=== PATIENT | female | born 1985 | race Caucasian/White ===

== ENCOUNTER 2020-05-05 18:45 | Emergency (ER) | payer MEDICAID, SELFPAY ==
[2019-08-20 17:33] VITALS: BMI 24.3
[2020-05-05 18:46] VITALS: BP 161/98; PULSE 95; RESP 16; TEMP 37.1; O2SAT 100; BMI 23.6
--- NOTE | 2020-05-05 19:42 | EKG12_ITS ---
Test Reason : REPEAT Blood Pressure : / mmHG Vent. Rate : 060 BPM Atrial Rate : 060 BPM P-R Int : 152 ms QRS Dur : 080 ms QT Int : 434 ms P-R-T Axes : 021 064 027 degrees QTc Int : 434 ms Sinus rhythm with marked sinus arrhythmia Otherwise normal ECG Confirmed by LIDA WORRELL, ARMIN ([id number]), editor managing director SELMA KAUR ([id number]) on 05/07/2020 10:51:04 AM Referred By: ALEXANDRA Confirmed By:ARMIN HILTON MD
--- NOTE | 2020-05-05 19:56 | RAD_ITS ---
STUDY: X-RAY CHEST REASON FOR EXAM: Female, 34 years old. FEVER,SINUSITIS, BRONCHITIS AND IRREGULAR HEART RATE TECHNIQUE: AP portable COMPARISON: 09/12/2011 FINDINGS: The lungs are clear and expanded. There is no demonstrated pleural abnormality. Normal size heart. Normal mediastinum and nasim. Normal visualized pulmonary arteries. Normal visualized aortic arch and descending thoracic aorta. Normal visualized thoracic spine. Normal visualized ribs, clavicles, and shoulders. There is no demonstrated abnormality of the visualized soft tissue structures of the upper abdomen. No significant change since prior exam RAD/Chest 1 View (Portable) IMPRESSION: Normal x-ray examination of the chest. Electronically Signed: Barrington Hernandez MD at 20:38 EST , Service support ,
--- NOTE | 2020-05-05 19:57 | ED.VIS.GEN ---
History of Present Illness Chief Complaint: Chest Pain Narrative: This patient is a 34-year-old female who presents with 4 days of palpitations. She has a history of a cardiomyopathy when she was 21 years old and was hospitalized at that time. She was on medication for couple of years but is no longer treated for congestive heart failure. She complains of 4 days of intermittent palpitations and a mild chest pressure as well as mild shortness of breath. She initially went to an urgent care and was advised to be evaluated here in the emergency department. No fever cough congestion rhinorrhea sore throat vomiting or diarrhea. Past Medical History - Allergies and Home Meds Allergies/Adverse Reactions: Allergies meperidine [From Demerol] Allergy (Mild, Verified 05/05/20 18:49) Fever and skin rash morphine Allergy (Mild, Verified 05/05/20 18:49) Fever and skin rash Primary Care Physician: Care Physician,No Primary [Primary Care Provider] - Past Medical History: - - Migraines, history of cardiomyopathy Smoking Status: Current every day smoker Review of Systems All systems negative except as indicated General: Denies: Fever Eyes: Denies: Visual changes - bilaterally ENT: Denies: Bilateral ear pain Cardiovascular: Reports: Chest pain, Palpitations Respiratory: Reports: Dyspnea. Denies: Cough Gastrointestinal: Denies: Abdominal pain, Nausea, Vomiting, Diarrhea Musculoskeletal: Denies: Myalgias, Arthralgias Skin: Denies: Rash Neurological: Denies: Headache Allergy: Denies: Uticaria Physical Exam Vital Signs/Narrative: Vital Signs Temp Pulse Resp BP Pulse Ox 05/05/20 18:46 98.8 F 95 16 161/98 H 100 General: Well nourished, Well developed Head: Normocephalic, Atraumatic Eyes: EOMI ENT: Moist mucous membranes Neck: Supple Cardiovascular: Regular rate, Regular rhythm Respiratory: No distress, CTA bilaterally Abdomen: Soft, Nontender Skin: Normal color Neurological: Alert Psychological: Normal affect Diagnostic/Tx/Re-eval Impressions Chest X-Ray 05/05/20 19:56 IMPRESSION: Normal x-ray examination of the chest. Electronically Signed: Barrington Hernandez MD at 20:38 EST , Service support , 05/05/20 19:56 Chest 1 View (Portable) [RAD] Stat Laboratory Results 05/05/20 05/05/20 05/05/20 19:47 19:47 19:47 WBC 9.5 RBC 4.94 Hgb 14.5 Hct 46.1 MCV 93.3 MCH 29.4 MCHC 31.5 L RDW Std Deviation 43.1 RDW Coeff of Brigid 12.5 Plt Count 299 MPV 10.5 Immature Gran % (Auto) 0.300 Neut % (Auto) 57.0 Lymph % (Auto) 35.0 [place] % (Auto) 4.9 Eos % (Auto) 1.9 Baso % (Auto) 0.9 Absolute Neuts (auto) 5.4 Absolute Lymphs (auto) 3.33 Nucleated RBC % 0 Sodium 140 Potassium 4.2 Chloride 109 H Carbon Dioxide 28.0 Anion Gap 3 L BUN 8 Creatinine 0.94 Estim Creat Clear Calc 85.87 Est GFR (MDRD) Af Amer 87 Est GFR (MDRD) Non-Af 72 BUN/Creatinine Ratio 8.5 L Glucose 91 Calcium 9.1 Magnesium 2.1 Troponin I < 0.015 - Medical Decision Making Initial EKG shows sinus rhythm at a rate of 71 with ventricular trigeminy. Repeat EKG shows sinus arrhythmia at a rate of 60 no acute ischemic changes. Labs are unremarkable. Normal electrolytes. 1 view chest x-ray obtained. On my interpretation the shows no acute process. X-ray read by radiology who agrees. His diagnostic evaluation is unremarkable at this time. I do believe she can safely follow-up as an outpatient. She was referred to cardiology. She understands return for new or worsening symptoms and was advised on signs and symptoms that should prompt immediate return here to the emergency department for reevaluation. ED Disposition - Plan for ED Patient: Disposition: Home or Assisted Living Diagnosis: Palpitations Instructions: ED Palpitations Referrals: Care Physician,No Primary [Primary Care Provider] -
[2020-05-05 19:59] LABS: Absolute Lymphocyte Count 3.33 X10^3/uL (0.83-4.51); Absolute Neutrophil Count 5.4 X10^3/uL (2.0-7.7); Basophil# 0.09 X10^3/uL; Basophil% 0.9 % (0-1); Eosinophil# 0.18 X10^3/uL; Eosinophils% 1.9 % (0-5); Hematocrit 46.1 % (37-47); Hemoglobin 14.5 g/dL (12.0-15.0); Lymphocyte # 3.33 X10^3/ul (4.0); Mean Corp Hgb Conc 31.5 g/dL (32-36); Mean Corpuscular Hgb 29.4 pg (27.0-32.0); Mean Corpuscular Volume 93.3 fL (81-99); Mean Platelet Vol. 10.5 fl (6.2-12.0); Monocyte# 0.47 X10^3/uL; Monocyte% 4.9 % (0-10); NRBC Flagged by Analyzer 0 % (0-5); Neutrophil # 5.42 X10^3/uL (2.7-7.7); Platelet Count 299 K/mm3 (150-450); RBC Distribution Width CV 12.5 % (11.6-14.6); RBC Distribution Width SD 43.1 fl (35.1-43.9); Red Blood Count 4.94 M/mm3 (4.2-5.4); White Blood Count 9.5 K/mm3 (4.4-11.0)
[2020-05-05 20:24] LABS: Anion Gap 3 (5-15); BUN 8 mg/dL (7-18); BUN/Creat Ratio 8.5 RATIO (10-20); Calcium,Total 9.1 mg/dL (8.5-10.1); Chloride 109 mmol/L (98-107); Creatinine, Serum 0.94 mg/dL (0.55-1.02); EST Glomerular Filtration Rate 72 mL/min (>60); Est Glom Filt Rate - Afr Amer 87 mL/min (>60); Estimated Creatinine Clearance 85.87 ml/min; Glucose 91 mg/dL (74-106); Potassium 4.2 mmol/L (3.5-5.1); Sodium Level 140 mmol/L (136-145)
[2020-05-05 21:11] VITALS: BP 98/72; PULSE 88; RESP 17; O2SAT 98
--- NOTE | 2020-05-05 21:19 | EKG12_ITS ---
Test Reason : CP Blood Pressure : / mmHG Vent. Rate : 071 BPM Atrial Rate : 187 BPM P-R Int : 000 ms QRS Dur : 078 ms QT Int : 408 ms P-R-T Axes : 000 064 055 degrees QTc Int : 443 ms Sinus rhythm with occasional premature ventricular complexes Abnormal ECG Confirmed by LIDA WORRELL, ARMIN ([id number]), rewrite editor SELMA KAUR ([id number]) on 05/07/2020 10:51:57 AM Referred By: ALEXANDRA Confirmed By:ARMIN HILTON MD
[2020-05-05 21:55] LABS: Magnesium 2.1 mg/dL (1.6-2.6)
--- NOTE | 2020-05-05 21:58 | ED.DEP ---
ED Disposition - Plan for ED Patient: Disposition: Home or Assisted Living Diagnosis: Palpitations Instructions: ED Palpitations Referrals: Care Physician,No Primary [Primary Care Provider] - Ralph Lal MD [STAFF PHYSICIAN] -
== END 2020-05-05 22:09 | disposition home or self-care (01) ==
PROVIDERS: Emergency Provider Emergency Medicine
DX: R00.2 Palpitations (principal); R00.8 Other abnormalities of heart beat; R06.02 Shortness of breath; F17.200 Nicotine dependence, unspecified, uncomplicated; Z79.899 Other long term (current) drug therapy
CPT/HCPCS: 71045; 80048; 83735; 84484; 85025; 93005; 99284; A4216

== ENCOUNTER 2023-09-27 15:18 | Emergency (ER) | payer MEDICAID, SELFPAY ==
[2023-09-27 15:19] VITALS: BP 113/76; PULSE 102; RESP 20; TEMP 36.1; O2SAT 100; BMI 24.8
[2023-09-27 16:24] LABS: Mucous, Urine 0 SEEN /hpf (<or=2+); Red Blood Cells-Urine 0 SEEN /hpf (0-5)
[2023-09-27 16:29] LABS: Color, Urine Amber (Yellow); Glucose, Dipstick Normal (Normal); Ketone-Dipstick 15 mg/dl (Negative); Leukocyte Esterase-Dipstick Negative /ul (Negative); Nitrite-Dipstick Positive (Negative); Occult Blood-Urine 25 /ul (Negative); Protein-Dipstick 100 mg/dl (Negative); Urine Clarity Sl. Cloudy (Clear); Urine Urobilinogen 8 mg/dl (Normal)
--- NOTE | 2023-09-27 16:30 | CT_ITS ---
STUDY: CT ABDOMEN AND PELVIS WITHOUT CONTRAST REASON FOR EXAM: Female, 37 years old. Pain RADIATION DOSAGE (If Supplied By Facility): CTDIvol = ( 6.54 ) mGy, DLP = ( 318.41 ) mGycm TECHNIQUE: Transaxial images were obtained from the dome of the diaphragm to the symphysis pubis without oral contrast, and without intravenous contrast. Sagittal and coronal images were reconstructed. Individualized dose optimization techniques were used for this CT. COMPARISON: None. FINDINGS: The visualized lung bases are unremarkable. The visualized portions of the heart are within normal limits. Normal liver. Normal gallbladder and extrahepatic biliary system. Normal spleen. Normal pancreas. Normal bilateral adrenal glands. There is a 0.3 cm stone at the lower pole of the right kidney. There is a 0.2 cm at the lower pole of the left kidney. Normal visualized stomach. Normal small intestine. Normal colon. The appendix is visualized and appears normal. Normal abdominal aorta. Normal inferior vena cava. Normal retroperitoneum. There is 0.4 cm stone in the urinary bladder. There is IUD in the uterus. There is no free fluid in the abdomen or pelvis. Normal abdominal wall. Normal osseous structures. CT/Abdomen/Pelvis without Cont IMPRESSION: Bilateral renal stones. Stone in the urinary bladder. No hydronephrosis. Electronically Signed: Bryce Sauceda MD at 18:12 EDT ,
--- NOTE | 2023-09-27 16:31 | EDS_ITS ---
HPI HPI - GI History of Present Illness Chief Complaint: Abd Pain Detail of Chief Complaint: Abdominal pain and vomiting Informant: patient Narrative Narrative: Patient presents with abdominal pain and vomiting that started about 1:30 PM. 7 days ago she went to urgent care with UTI-like symptoms and had blood in her urine. They did not see signs of infection but I believe they treated her with Flagyl. Patient continues to experience symptoms. She started Macrobid today. Also on Pyridium. About 1:30 PM she started retching and vomiting and is vomited multiple times. After arrival in the emergency department per protocol she received some Zofran and then started having diarrhea. Patient denies sick contacts. No prior abdominal surgeries. Last menstrual period was 3 weeks ago. [facility] Medical History (Updated 09/27/23 @ 18:[address] Mary Bautista DO) Depression Feeling angry ADHD (attention deficit hyperactivity disorder) KIDNEY STONE 20 STONES TOTAL RECEIVED STONES DURING PREGNANC PERCARDIUM CARDIOMYOPATHY Home Medications ?Medication ?Instructions ?Recorded ?Last Taken ?Type amoxicillin 875 mg-potassium 1 tab PO Q12H #20 tabs 08/20/19 Unknown Rx clavulanate 125 mg tablet benzonatate 200 mg capsule 200 mg PO TID PRN cough #60 caps 08/20/19 Unknown Rx fluconazole 150 mg tablet 150 mg PO Q3D 2 doses #2 tabs 08/20/19 Unknown Rx ondansetron 4 mg disintegrating 4 mg PO Q8H PRN PRN Nausea #10 tabs 09/27/23 Unknown Rx tablet Allergy/AdvReac Type Severity Reaction Status Date / Time meperidine (From Demerol) Allergy Mild Fever and Verified 09/27/23 15:21 skin rash morphine Allergy Mild Fever and Verified 09/27/23 15:21 skin rash Family History (Updated 10/25/18 @ 14:28 by Katrina De La Rosa) Other CVA (cerebral vascular accident) High cholesterol Hypertension IBS (irritable bowel syndrome) Surgical History (Updated 05/05/20 @ 19:[address] Andrés Andino MD) H/O lithotripsy Social History (Updated 08/20/19 @ 17:48 by Clarisa Cespedes NP, [employer]-C) Smoking Status: Current every day smoker tobacco type: cigarettes second hand exposure: Yes ROS ROS ED Review of Systems ROS Unobtainable: other Constitutional Constitutional ED: Reports lethargy; Denies chills, fever(s), sweats or weight loss Eyes Eyes: Denies blurry vision, change in vision or diplopia ENT ENT ED: Denies rhinorrhea or sore throat Cardiovascular Cardiovascular: Denies chest pain, orthopnea or racing heartbeat Respiratory/Chest Respiratory/Chest: Denies cough, dyspnea, dyspnea on exertion, orthopnea or sputum Gastrointestinal Gastrointestinal: Reports abdominal pain, diarrhea, nausea and vomiting Genitourinary Genitourinary ED: Denies dysuria, hematuria or urinary frequency Musculoskeletal Musculoskeletal: Denies arthralgias, back pain, myalgias or neck pain Integumentary Denies abscess, Abrasions or rash Neurologic Neurologic: Denies headache(s) or weakness Psychiatric Psychiatric: Denies anxiety, depression or suicidal thoughts Endocrine Endocrinology: Denies polydipsia, polyphagia or polyuria Hematologic/Lymphatic Hematologic/Lymphatic: Denies easy bleeding, easy bruising or lymphadenopathy Allergic/Immunologic Allergic/Immunologic ED: Denies mouth swelling, tongue swelling or urticaria EXAM Physical Exam Const Vital Signs: 09/27/23 15:19 09/27/23 17:19 Temperature 97 F L Temperature Source Temporal Pulse Rate 102 H 92 Respiratory Rate 20 H Blood Pressure 113/76 122/81 H Blood Pressure Mean 88 94 Pulse Ox 100 Oxygen Delivery Method Room Air Positive well nourished and well developed General Appearance ED: well developed and NAD HEENT Reports TM's clear and moist mucous membranes normocephalic and atraumatic; Negative for trauma or tenderness Tympanic Membrane ED: Yes TM's clear Eyes PERRL and EOMs intact bilaterally General Eye ED: Negative for pale conjunctiva or scleral icterus Neck no lymphadenopathy, supple and no JVD General: Negative for tenderness Chest Wall inspection of chest normal and palpation of chest normal Chest: Negative for tenderness Resp normal respiratory effort and clear to auscultation bilaterally Effort and Inspection: Negative for respiratory distress or pain with movement Auscultation: Negative for rhonchi, wheezes or diminished lung sounds Cardio regular rate, regular rhythm, S1 normal heart sound, S2 normal heart sound and no murmurs Peripheral Pulses: pulses 2+ throughout GI normal to inspection, nondistended, normoactive bowel sounds, soft to palpation, non-distended and no masses GI Narrative: Mild tenderness over the suprapubic region with some guarding. There is no rebound, rigidity, or pineal signs. No mass palpated. Back/Spine no CVA tenderness and no thoracic nor lumbar tenderness Extremity normal to inspection General Extremety ED: Negative for edema General Extremity: Negative for edema Neuro oriented x3, CN's II-XII intact bilaterally, no sensory deficits noted and gait normal Sensorium / Orientation: awake, alert, oriented to person, oriented to place and oriented to time Motor Exam: strength 5/5 throughout and strength abnormal Psych mental status grossly normal Skin no rashes or lesions noted and no wounds MDM MDM MDM Narrative Medical decision making narrative: Patient presents with urinary symptoms thought she may have a UTI and has history of kidney stones. Patient today also started vomiting and having diarrhea as well. IV line established on arrival. CBC with differential obtained showed a white count of 13.1 with hemoglobin 14.2 and platelet count of 260. Chemistries unremarkable. LFTs were normal. hCG was negative. Urinalysis positive for nitrites but negative for leukocyte esterase and only 0- 5 WBCs and +1 bacteria. Urine culture was sent. CT flank obtained showed a small 4 mm stone in the bladder and 2 small stones in 1 in the right kidney and 1 in the left kidney. No other acute findings. Patient received Zofran in the department and normal saline and felt markedly improved. At this point she will be discharged to home. I did advise her to continue with her Macrobid that she is started. I suspect she may have passed a kidney stone given that there is a small stone in the bladder. She will be given a prescription for Zofran. Advised to follow-up with primary care physician within next 3 to 5 days. Patient to return if worsening pain, fever, vomiting, dehydration, or condition should worsen anyway. I suspect she may also be developing a viral gastroenteritis potentially given the sudden onset of vomiting and diarrhea. Lab Data Attestation: I reviewed the patient's lab results. Labs: Laboratory Results - last 24 hr 09/27/23 09/27/23 15:40 16:59 WBC 13.1 H RBC 4.69 Hgb 14.2 Hct 43.5 MCV 92.8 MCH 30.3 MCHC 32.6 RDW Std Deviation 43.7 RDW Coeff of Brigid 12.8 Plt Count 260 MPV 10.3 Immature Gran % (Auto) 0.500 Neut % (Auto) 92.3 H Lymph % (Auto) 3.9 L [place] % (Auto) 2.8 Eos % (Auto) 0.2 Baso % (Auto) 0.3 Absolute Neuts (auto) 12.0 H Absolute Lymphs (auto) 0.51 L Nucleated RBC % 0 Sodium 138 Potassium 4.1 Chloride 110 H Carbon Dioxide 24.0 Anion Gap 4 L BUN 13 Creatinine 0.92 Estim Creat Clear Calc 85.28 Est GFR (MDRD) Af Amer 88 Est GFR (MDRD) Non-Af 73 BUN/Creatinine Ratio 14.1 Glucose 105 Calcium 8.3 L Total Bilirubin 0.70 AST 13 L ALT 18 Alkaline Phosphatase 53 Total Protein 6.6 Albumin 3.8 Globulin 2.8 Albumin/Globulin Ratio 1.4 Serum , Qual NEGATIVE Urine Color [place] Urine Clarity Sl. Cloudy Urine pH 5.0 Ur Specific [place] 1.030 Urine Protein 100 H Urine Glucose (UA) Normal Urine Ketones 15 H Urine Occult Blood 25 H Urine Nitrite Positive H Urine Bilirubin 6 H Urine Urobilinogen 8 H Ur Leukocyte Esterase Negative Urine RBC 0 SEEN Urine WBC 0-5 SEEN Ur Squamous Epith Cells 5-10 SEEN Calcium Oxalate Crystal 2+ Urine Bacteria 1+ Urine Mucus 0 SEEN Radiography Diagnostic Testing: Clinical Impression(s) from Imaging Studies Abdomen/Pelvis CT 09/27/23 16:30 IMPRESSION: Bilateral renal stones. Stone in the urinary bladder. No hydronephrosis. Electronically Signed: Bryce Sauceda MD at 18:12 EDT , Discharge Plan Triage Chief Complaint: Abd Pain ED Provider: Mary Bautista Dx/Rx/DC Orders Clinical Impression: Urolithiasis, Viral gastroenteritis Instructions: ED Kidney Stone, Passed, ED Gastroenteritis, Viral (Adult) Prescriptions: New ondansetron 4 mg tablet,disintegrating 4 mg PO Q8H PRN PRN (Reason: Nausea) Qty: 10 0RF No Action amoxicillin-pot clavulanate 875-125 mg tablet 1 tab PO Q12H Qty: 20 0RF benzonatate 200 mg capsule 200 mg PO TID PRN (Reason: cough) Qty: 60 0RF fluconazole 150 mg tablet 150 mg PO Q3D 0 Days Qty: 2 0RF Primary Care Provider: Deena Chavez Referrals: [facility] Doctor,Out of [Non-Staff] - 3-5 Days Print Language: [place] Korean Disposition Disposition: Home, Self Care
[2023-09-27 16:35] LABS: Urine Bilirubin Dipstick 6 mg/dL (Negative)
[2023-09-27 16:36] LABS: Squamous Epithelial Cells - UA 5-10 SEEN /hpf (5-10); White Blood Cells 0-5 SEEN /hpf (0-5)
[2023-09-27 16:37] LABS: Bacteria 1+ /hpf (None Seen); Calcium Oxalate Crystals Ur 2+ /hpf (<or=2+)
[2023-09-27] MEDS: 0.9% Normal Saline (1000mL) 1,000 ML 1000 ML IV (16:39)
[2023-09-27 17:06] LABS: Absolute Lymphocyte Count 0.51 X10^3/uL (0.83-4.51); Basophil# 0.04 X10^3/uL; Basophil% 0.3 % (0-1); Eosinophil# 0.03 X10^3/uL; Eosinophils% 0.2 % (0-5); Hematocrit 43.5 % (37-47); Hemoglobin 14.2 g/dL (12.0-15.0); Lymphocyte # 0.51 X10^3/ul (0.83-4.51); Lymphocyte % 3.9 % (19-41); Mean Corp Hgb Conc 32.6 g/dL (32-36); Mean Corpuscular Hgb 30.3 pg (27.0-32.0); Mean Corpuscular Volume 92.8 fL (81-99); Mean Platelet Vol. 10.3 fl (6.2-12.0); Monocyte# 0.37 X10^3/uL; Monocyte% 2.8 % (0-10); NRBC Flagged by Analyzer 0 % (0-5); Neutrophil # 12.04 X10^3/uL (2.7-7.7); Neutrophil % 92.3 % (47-70); POSITIVE DIFFERENTIAL YES; Platelet Count 260 K/mm3 (150-450); RBC Distribution Width CV 12.8 % (11.6-14.6); RBC Distribution Width SD 43.7 fl (35.1-43.9); Red Blood Count 4.69 M/mm3 (4.2-5.4); White Blood Count 13.1 K/mm3 (4.4-11.0)
[2023-09-27 17:19] VITALS: BP 122/81; PULSE 92
[2023-09-27 17:45] LABS: ALB/GLOB Ratio 1.4 RATIO (0.9-2.4); AST(SGOT) 13 U/L (15-37); Alanine Aminotransfer ALT/SGPT 18 U/L (13-56); Albumin, Serum 3.8 g/dL (3.2-5.0); Alkaline Phosphatase 53 U/L (45-117); Anion Gap 4 (5-15); BUN 13 mg/dL (7-18); BUN/Creat Ratio 14.1 RATIO (10-20); Calcium,Total 8.3 mg/dL (8.5-10.1); Chloride 110 mmol/L (98-107); Creatinine, Serum 0.92 mg/dL (0.55-1.02); EST Glomerular Filtration Rate 73 mL/min (>60); Est Glom Filt Rate - Afr Amer 88 mL/min (>60); Estimated Creatinine Clearance 85.28 ml/min; Globulin 2.8 g/dL (2.2-4.2); Glucose 105 mg/dL (74-106); Internal QC Validated? YES +Cl - CLEAR BKGD; Potassium 4.1 mmol/L (3.5-5.1); Pregnancy, Serum, hCG Quali. NEGATIVE Negative; Protein, Total 6.6 g/dL (6.4-8.2); Sodium Level 138 mmol/L (136-145)
[2023-09-27 18:39] VITALS: BP 124/64; PULSE 64; RESP 18; TEMP 36.8; O2SAT 97
== END 2023-09-27 18:56 | disposition home or self-care (01) ==
PROVIDERS: Emergency Provider Emergency Medicine; PCP Family Medicine; Visit Provider Emergency Medicine
DX: A08.4 Viral intestinal infection, unspecified (principal); N20.0 Calculus of kidney; F17.210 Nicotine dependence, cigarettes, uncomplicated; Z87.442 Personal history of urinary calculi; N21.0 Calculus in bladder
CPT/HCPCS: 36415; 74176; 80053; 81001; 84703; 85025; 87077; 87086; 87088; 87186; 99283; J7030; A4216

== ENCOUNTER 2024-03-07 21:56 | Emergency (ER) | payer MEDICAID, SELFPAY ==
[2024-03-07 21:57] VITALS: BP 160/94; PULSE 118; RESP 16; TEMP 36; O2SAT 98
--- NOTE | 2024-03-07 22:00 | EDS_ITS ---
HPI History of Present Illness Chief Complaint: Chest Pain PFSH PFSH Medical History Depression Feeling angry ADHD (attention deficit hyperactivity disorder) KIDNEY STONE 20 STONES TOTAL RECEIVED STONES DURING PREGNANC PERCARDIUM CARDIOMYOPATHY Home Medications ?Medication ?Instructions ?Recorded ?Last Taken ?Type amoxicillin 875 mg-potassium 1 tab PO Q12H #20 tabs 08/20/19 Unknown Rx clavulanate 125 mg tablet benzonatate 200 mg capsule 200 mg PO TID PRN cough #60 caps 08/20/19 Unknown Rx fluconazole 150 mg tablet 150 mg PO Q3D 2 doses #2 tabs 08/20/19 Unknown Rx ondansetron 4 mg disintegrating 4 mg PO Q8H PRN PRN Nausea #10 tabs 09/27/23 Unknown Rx tablet Allergy/AdvReac Type Severity Reaction Status Date / Time meperidine (From Demerol) Allergy Mild Fever and Verified 03/07/24 21:57 skin rash morphine Allergy Mild Fever and Verified 03/07/24 21:57 skin rash Family History (Updated 10/25/18 @ 14:28 by Katrina De La Rosa) Other CVA (cerebral vascular accident) High cholesterol Hypertension IBS (irritable bowel syndrome) Surgical History H/O lithotripsy Social History (Updated 08/20/19 @ 17:48 by Clarisa Cespedes NP, ELECTROCARDIOGRAPH OPERATOR-C) Smoking Status: Current every day smoker tobacco type: cigarettes second hand exposure: Yes EXAM Physical Exam Const Vital Signs: 03/07/24 21:57 03/07/24 22:30 03/07/24 23:09 Temperature 96.8 F L Temperature Source Temporal Pulse Rate 118 H 57 L Respiratory Rate 16 13 Blood Pressure 160/94 H Blood Pressure Mean 116 Pulse Ox 98 97 Oxygen Delivery Method Room Air Room Air MDM MDM MDM Narrative Medical decision making narrative: HISTORY OF PRESENT ILLNESS: 38-year-old female history of cardiomyopathy presents with chest pain. Notes chest pain and pressure starting approximate 30 minutes prior to arrival. Notes pain radiates down her left arm. She feels like her heart is skipping beats. No she drink more coffee than usual today. Notes she drank a whole pot of coffee . She notes since then she has been having the symptoms. The patient denies recent surgery in the last 4 weeks or immobilization in the last 3 days, denies previous diagnosis of DVT or PE, hemoptysis, unilateral leg swelling or malignancy with treatment the last 6 months or palliative. No estrogen use noted. Patient denies sudden onset of pain, no tearing sensation, no migratory symptoms, no new numbness, weakness or loss of sensation. Patient denies family history or personal history of Connective tissue disorders (Marfan's Syndrome, Michele Danlos etc) REVIEW OF SYSTEMS: Pertinent positives: Chest pain, palpitations Pertinent negatives: Syncope PHYSICAL EXAM: Nursing triage notes reviewed, Vital signs reviewed Constitutional: please see mdm HENT: MMM Eyes: Pupils equal round and reactive to light, Extraocular muscles intact Neck: No stridor, no JVD, full neck ROM Lungs: Clear to auscultation, No wheezing or rales. No increased work of breathing, no conversational dyspnea, no accessory muscle use, no nasal flaring. No respiratory distress noted Heart: Regular rate and rhythm, No murmurs, No rubs and No gallops, 2+ distal pulses (radial, femoral, posterior tibial) in all extremities Abdomen: Soft, there is no tenderness, rigidity, rebound or guarding, no obvious peritoneal signs, no palpable pulsatile abdominal masses, no auscultated abdominal bruit : No CVAT Extremities: No edema Neuro: No focal neurological deficits, cranial nerves II through XII intact, 5/5 strength in all extremities. Intact sensation to light touch in all extremities, 2+ reflexes bilateral patella tendons. Normal gait. No ataxia. Skin: No rash or lesions noted MEDICAL DECISION MAKING: Chief Complaint: Chest pain, palpitations External records reviewed: Prior imaging reviewed, prior EKG reviewed Factors affecting care: cardiomyopathy Social determinants of health: Denies cocaine or methamphetamine abuse History obtained from others: none Consults: none, focal cardiopulmonary abnormalities MDM Narrative: Patient was initially tachycardic otherwise afebrile and nontoxic-appearing. Exam without focal cardiopulmonary abnormalities initial history and physical exam are consistent with likely side effect of excessive caffeine intake. I considered the following differential diagnosis: ACS, arrhythmia, anemia, PE, pericarditis, pneumonia, pneumothorax, aortic dissection I obtained a broad lab and imaging workup to further elucidate the etiology of the patient's complaints ALL IMAGES (IF OBTAINED) HAVE BEEN PERSONALLY REVIEWED AND INTERPRETED BY MYSELF. I have personally reviewed the patient's chest x-ray. Chest x-ray is unremarkable for pulmonary edema, pneumothorax, pneumonia or focal cardiopulmonary abnormality. EKG with normal sinus rhythm rate of 78, normal axis, normal intervals, no STEMI, no ARVD, Brugada syndrome or WW, noted PVCs D-dimer negative making VTE less likely Labs are pending at this time including CBC, BMP, troponins and D-dimer. Will sign the patient out to p.m. physician pending lab and imaging studies. The patient and/or family, caregivers express understanding. The patient and/or family, caregivers agrees with the plan. Shared decision making: I will have a discussion with the patient and or visitors regarding risk/benefits of further testing or admission. They will be made aware of of the risk/benefits inherent in this decision they will be given the opportunity to voice understanding. Total critical care time today provided was at least 0 minutes. This excludes separately billable procedures. Critical care time (if documented) is secondary to the patient having high probability of clinically significant/life threatening deterioration in the patient's condition which required my urgent intervention. Impression: 1. Chest pain 2. Palpitations 3. Excessive caffeine intake Dispo: Pending labs including delta troponin and final disposition This note was generated with [employer] dictation software. It may contain incorrect words, spelling, and punctuation that were not noted in review of the chart prior to signing. Lab Data Labs: Laboratory Results - last 24 hr 03/07/24 23:06 D-Dimer Quant (PE/DVT) 0.31 Radiography Diagnostic Testing: Clinical Impression(s) from Imaging Studies Chest X-Ray 03/07/24 22:16 IMPRESSION: Radiodense nodule projecting over the right lower lung is similar to the prior examination, likely a granuloma. Otherwise, no acute findings. Electronically Signed: Reji Russo DO at 22:26 EDT , Discharge Plan Triage Chief Complaint: Chest Pain ED Provider: Yamil Grider Dx/Rx/DC Orders Instructions: Chest Pain [facility] Prescriptions: No Action amoxicillin-pot clavulanate 875-125 mg tablet 1 tab PO Q12H Qty: 20 0RF benzonatate 200 mg capsule 200 mg PO TID PRN (Reason: cough) Qty: 60 0RF fluconazole 150 mg tablet 150 mg PO Q3D 0 Days Qty: 2 0RF ondansetron 4 mg tablet,disintegrating 4 mg PO Q8H PRN PRN (Reason: Nausea) Qty: 10 0RF Primary Care Provider: Deena Chavez Referrals: Deena Chavez MD [Primary Care Provider] - Activity Restrictions/Additional Instructions: Thank you for trusting us with your care today! Please take Tylenol (2 pills, 650 mg), ibuprofen (2 pills, 400 mg) every 6 hours as needed for pain and fever control. Please do not exceed 4 caffeinated beverages a day. Please return to the emergency department if your symptoms change or worsen. Please follow with your primary care physician for further outpatient evaluation and management. Print Language: Polish Disposition Disposition: Home, Self Care
--- NOTE | 2024-03-07 22:01 | EKG12_ITS ---
Test Reason : CP Blood Pressure : / mmHG Vent. Rate : 078 BPM Atrial Rate : 078 BPM P-R Int : 138 ms QRS Dur : 082 ms QT Int : 394 ms P-R-T Axes : 060 067 050 degrees QTc Int : 449 ms Sinus rhythm with sinus arrhythmia with occasional Premature ventricular complexes Otherwise normal ECG Confirmed by GIORGI WORRELL, GRADY ([id number]), photographic editor SELMA KAUR ([id number]) on 03/08/2024 9:26:43 AM Referred By: AMANDA Confirmed By:GRADY RAND MD
[2024-03-07 22:10] VITALS: BP 127/84; PULSE 81; RESP 13; O2SAT 98
--- NOTE | 2024-03-07 22:16 | RAD_ITS ---
EXAM: XR CHEST, 1 VIEW CLINICAL INDICATION: chest pain TECHNIQUE: Frontal view of the chest. COMPARISON: 05/05/2020 FINDINGS: LUNGS AND PLEURAL SPACES: Radiodense nodule measuring 1.1 cm projecting over the right lower lung is similar to the prior examination, likely a granuloma. No pneumothorax. No effusion. HEART: No significant abnormality. Cardiac silhouette not enlarged. MEDIASTINUM: Central airways and mediastinal contour are unremarkable. BONES/JOINTS: No significant abnormality. No acute fracture. SOFT TISSUES: No significant abnormality. RAD/Chest 1 View (Portable) IMPRESSION: Radiodense nodule projecting over the right lower lung is similar to the prior examination, likely a granuloma. Otherwise, no acute findings. Electronically Signed: Reji Russo DO at 22:26 EDT ,
--- OUTSIDE RECORDS SUMMARY | 2024-03-07 22:22 | XMS RPT_ITS | CCD ---
Author Organization [facility] Team Providers Care Sap Data Architect Name Role Phone PROVIDER, UNKNOWN Unavailable Unavailable PROVIDER, UNKNOWN Unavailable Unavailable No, PCP Unavailable Unavailable Gregory Summers Unavailable Unavailable Unknown, Referring Provider Unavailable Unav ailable Unavailable Primary Care Provider Unavailabl e Unknown, Referring Provider Unavailable Unav ailable Unavailable Unavailable Scott WORRELL, Deena S Primary Care Provider Carmel Marroquin DO Primary Care Provider Scott WORRELL, Deena S Primary Care Provider [phone] Scott WORRELL, Deena S Primary Care Provider [phone] Scott WORRELL, Deena S Primary Care Provider [phone] Scott WORRELL, Deena S Primary Care Provider [phone] Hua Valverde MD Unavailable CARMEL MARROQUIN Primary Care Unavailable DIANA DORADO Referring Unavailable Shon Hagan MD Unavailable [phone] RALPH TSE Attending Unavailable SCOTT, DEENA Primary Care Unavailable SCOTT, DEENA Attending Unavailable SCOTT, DEENA Primary Care Unavailable SCOTT, DEENA Primary Care Unavailable CECILIA COOPER Attending Unavailable SCOTT, DEENA Primary Care Unavailable SCOTT, DEENA Attending Unavailable SHON HAGAN Attending Unavailable SCOTT, DEENA Referring Unavailable SCOTT, DEENA Primary Care Unavailable CECILIA COOPER Referring Unavailable SCOTT, DEENA Primary Care Unavailable CECILIA COOPER Attending Unavailable SCOTT, DEENA Primary Care Unavailable LAST SCALES Attending Unavailab RENETTA Johnson Attending Unavailable SCOTT, DEENA Primary Care Unavailable SCOTT, DEENA Primary Care Unavailable LAST SCALES Referring Unavailab le SCOTT, DEENA Primary Care Unavailable CECILIA COOPER Attending Unavailable CECILIA COOPER Referring Unavailable SHON HAGAN Attending Unavailable SHON HAGAN Referring Unavailable SCOTT [facility] Unavailable Allergies Allergy Classification Reported Allergen(s) Allergy Type Date of Onset Reaction(s) Facility Opioid Agonists (4 sources) Meperidine Drug Allergy 09-12-2011 Rash, Itching [facility] Work Phone: (20 sources) Meperidine; Translations: [Demerol TABS] Drug Allergy 09-12-2011 Rash [facility] Work Phone: (20 sources) Morphine; Translations: [morphine] Drug Allergy 09-12-2011 Itching, Rash, Unknown -Urgent [facility] Work Phone: (6 sources) Meperidine; Translations: [MEPERIDINE (PF)] Drug Allergy 09-12-2011 Unknown [facility] Medications Current Medications Medication Drug Class(es) Dates Sig (Normalized) Sig (Original) buprenorphine 8 mg / naloxone 2 mg sublingual film (20 sources) Partial Opioid Agonist, Opioid Antagonist Start: 11-19-2023 buprenorphine-nalox one (Suboxone) 8-2 MG per sublingual film APPLY 1 FILM SUBLINGUALLY TWICE DAILY 11/19/2023 Active Start: 04-29-2020 buprenorphine- naloxone (SUBOXONE) 2-0.5 MG SUBL 0.5 tablets daily. 0 04/29/2020 Active Wkucmzopyw-ZNCO-Hxyvtyzc (FIORICET PO) (1 source) Butalbital-APAP- Caffeine (FIORICET PO) Take by mouth as needed For migraine 0 Active diclofenac sodium 75 mg delayed release oral tablet (6 sources) Nonsteroidal Anti-inflammator y Drug Star t: 09-13 24 End: 10-14 take 1 tablet by mouth twice daily as needed for pain diclofenac (Voltaren) 75 MG EC tablet Indications: Kidney stone on right side Take 1 tablet (75 mg) by mouth 2 times daily as needed (pain). Do not crush, chew, or split. 30 tablet 09/29/2023 11/02/2023 Active fluconazole 100 mg oral tablet (13 sources) Azole Antifungal Star t: 12-14 End: 09-02 take 1 tablet by mouth once daily fluconazole (Diflucan) 100 MG tablet Indications: Tinea corporis Take 1 tablet (100 mg) by mouth daily for 14 days. 14 tablet 01/04/2024 01/18/2024 Active Start: 12-27-2018 take 1 tablet by mouth once Fl uconazole 150 MG Oral Tablet TAKE 1 TABLET 1 TIME ONLY. Quantity: 1 Refills: 0 Ordered: 27-Dec-2018 Gregory Summers MD Start : 27-Dec-2018 Active gabapentin 300 mg oral capsule (20 sources) Anti-epileptic Agent Start: 12-16-2023 End: 01-17-2024 take 1 capsule by mouth every eight hours as needed gabapentin (Neurontin) 300 MG capsule Take 1 capsule (300 mg) by mouth every 8 hours as needed (back pain). 90 capsule 01/17/2024 Active Start: 11-14-2023 End: 12-15-2023 take 1 capsule by mouth once daily, then take 1 capsule by mouth three times daily, then take 2 capsules by mouth three times daily gabapentin (Neurontin) 100 MG capsule Take 1 capsule (100 mg) by mouth Nightly for 2 days, THEN 1 capsule (100 mg) 3 times daily for 2 days, THEN 2 capsules (200 mg) 3 times daily for 20 days. 128 capsule 11/14/2023 12/15/2023 Discontinued (Reorder) ibuprofen 200 mg oral tablet (1 source) Nonsteroidal Anti-inflammatory Drug take 1 tablet by mouth every six hours as needed for pain ibuprofen (ADVIL;MOTRIN) 200 MG tablet Take 200 mg by mouth every 6 hours as needed for Pain 0 Active ketorolac tromethamine 10 mg oral tablet (20 sources) Nonsteroidal Anti-inflammatory Drug, Cyclooxygenase Inhibitor Start: 024 take 1 tablet by mouth every eight hours as needed for pain ketorolac (Toradol) 10 MG tablet Take 1 tablet (10 mg) by mouth every 8 hours as needed for moderate pain (4-6). 20 tablet 01/18/2024 Active Start: 12-27-2023 End: 12-27-2023 15 mg, IntraVENous, Once, On Tue12/27/23 at 0055, For 1 dose Start: 12-01-2023 End: 07-18-2024 inject 30 mg by intramuscular injection once 30 mg, IntraMUSCular, Once, On Cinthya 12/01/23 at 2205, For 1 dose Start: 11-14-2023 End: 01-18-2024 take 1 tablet by mouth every six hours as needed for pain ketorolac (Toradol) 10 MG tablet Take 1 tablet (10 mg) by mouth every 6 hours as needed for moderate pain (4-6). 60 tablet 01/17/2024 01/18/2024 Discontinued Start: 10-19-2023 take 1 tablet by palma th every six hours as needed ketorolac (Toradol) 10 MG tablet Take 1 tablet by mouth every 6 hours as needed. 10/19/2023 Active lidocaine 0.05 mg/mg medicated patch (2 sources) Antiarrhythmic, Amide Local Anesthetic Start: 08-11-2021 lidocaine (LIDODERM) 5 % Place 1 patch onto the skin every [address] 1 patch onto the skin daily 12 hours on, 12 hours off. 14 patch 0 08/11/2021 Active Start: 10-23-2019 End: 10-23-2019 lidocaine 1 % injection 20 m L loratadine 10 mg oral tablet (20 sources) Start: 08-23-2022 End: 08-18-2023 take 1 tablet by mouth once daily loratadine (Claritin) 10 MG tablet Indications: Seasonal allergies TAKE 1 TABLET BY MOUTH ONCE DAILY 90 tablet 3 08/18/2023 Active methylPREDNISolone 4 mg oral tablet (5 sources) Corticosteroid Start: 12-01-2023 End: 12-08-2023 methylPREDNISolone (Medrol Dospak) 4 MG tablets Follow schedule on package instructions 21 tablet 12/01/2023 12/08/2023 Active Start: 11-02-2023 End: 11-09-2023 methylPREDNISolone (Medrol D ospak) 4 MG tablets Indications: Lumbar spine pain Take as directed on package. 21 tablet 11/02/2023 11/09/2023 Active metoprolol tartrate 25 mg oral tablet (20 sources) beta-Adrenergic Jaime Start: 09-27-2022 End: 01-17-2024 take 1 tablet by mouth every eight hours as needed metoprolol tartrate (Lopressor) 25 MG tablet TAKE 1 TABLET BY MOUTH EVERY 8 HOURS NEEDED for palpitations over 100/min 270 tablet 3 01/17/2024 Active ondansetron 4 mg oral tablet (20 sources) Serotonin-3 Receptor Antagonist Start: 12-27-2023 End: 12-30-2023 take 1 tablet by mouth every six hours ondansetron (Zofran) 4 MG tablet Take 1 tablet (4 mg) by mouth in the morning and 1 tablet (4 mg) at noon and 1 tablet (4 mg) in the evening and 1 tablet (4 mg) before bedtime. Do all this for 3 days. 12 tablet 12/27/2023 12/30/2023 Active Start: 12-27-2023 End: 12-27-2023 4 mg, IntraVENous, Once, On Tue12/27/23 at 0055, For 1 dose Start: 09-27-2023 End: 12-15-2023 take 1 tablet by mouth every eight hours as needed for nausea ondansetron ODT (Zofran-ODT) 4 MG disintegrating tablet Take 1 tablet (4 mg) by mouth every 8 hours as needed for nausea. 20 tablet 3 12/16/2023 Active phenazopyridine hydrochloride 100 mg oral tablet (20 sources) Start: 09-27-2023 take 1 tablet by mouth every eight hours as needed phenazopyridine (Pyridium) 100 MG tablet Take 100 mg by mouth every 8 hours as needed. 09/27/2023 Active Start: 09-27-2023 take 1 tablet by palma th every eight hours as needed phenazopyridine (PYRIDIUM) 100 mg tablet Take 1 tablet by mouth three times a day as needed. 9 tablet 0 09/27/2023 Active predniSONE 10 mg oral tablet (2 sources) Start: 02-15-2024 predniSONE (De ltasone) 10 MG tablet Indications: Lumbar spine pain 4 pills daily for 3 days, 3 pills daily for 3 days, 2 pills daily for 3 days, 1 pill daily for 3 days. Take with food. Stop. 30 tablet 02/15/2024 Active Start: 08-11-2021 End: 08-16-2021 take 1 tablet by mouth once daily predniSONE (DELTASONE) 10 MG tablet Take 1 tablet by mouth daily for 5 days 5 tablet 0 08/11/2021 08/16/2021 Active tamsulosin hydrochloride 0.4 mg oral capsule (20 sources) alpha-Adrenergic Jaime Start: 09-30-2023 End: 09-29-2024 take 1 capsule by mouth once daily tamsulosin (Flomax) 0.4 MG 24 hr capsule Indications: Kidney stone on right side Take 1 capsule (0.4 mg) by mouth daily. 30 capsule 09/30/2023 09/29/2024 Active valACYclovir 500 mg oral tablet (20 sources) Herpesvirus Nucleoside Analog DNA Polymerase Inhibitor, Herpes Simplex Virus Nucleoside Analog DNA Polymerase Inhibitor, Herpes Zoster Virus Nucleoside Analog DNA Polymerase Inhibitor Start: 01-21-2021 End: 08-18-2023 valACYclovir (Valtrex) 500 MG tablet Indications: HSV-1 (herpes simplex virus 1) infection TAKE 1 TABLET BY MOUTH ONCE DAILY 90 tablet 3 08/18/2023 Active Comment on above: Take 1 tablet by palma th once daily. INSTRUCTED. Completed/Discontinued Medications Medication Drug Class(es) Dates Sig (Normalized) Sig (Original) amoxicillin 875 mg / clavulanate 125 mg oral tablet (1 source) Penicillin-class Antibacterial Start: 03-02-2021 take 1 tablet by mouth every twelve hours at mealtime Amoxicillin-Pot Clavulanate 875-125 MG Oral Tablet TAKE 1 TABLET EVERY 12 HOURS WITH MEALS UNTIL GONE. Quantity: 20 Refills: 0 Ordered: 02-Mar-2021 Gregory Summers MD Start : 02-Mar-2021 Active atomoxetine 40 mg oral capsule (6 sources) Norepinephrine Reuptake Inhibitor Start: 10-12-2022 End: 12-27-2022 take 1 capsule by mouth once daily atomoxetine (Strattera) 40 MG capsule Indications: Attention deficit hyperactivity disorder (ADHD), predominantly inattentive type Take 1 capsule (40 mg) by mouth daily. Swallow capsule whole; do not open. If opened accidentally, do not touch eyes; wash hands immediately (product is an eye irritant). 30 capsule 0 10/12/2022 12/27/2022 Discontinued (Therapy completed) Start: 08-23-2022 End: 10-12-2022 take 1 capsule by mouth once daily atomoxetine (Strattera) 100 MG capsule Indications: Attention deficit hyperactivity disorder (ADHD), predominantly inattentive type Take 1 capsule (100 mg) by mouth daily. Swallow capsule whole; do not open. If opened accidentally, do not touch eyes; wash hands immediately (product is an eye irritant). 90 capsule 1 08/23/2022 10/12/2022 Discontinued (Reorder) Start: 07-12-2022 End: 08-23-2022 take 2 capsules by mouth once daily atomoxetine (Strattera) 25 MG capsule Indications: Attention deficit hyperactivity disorder (ADHD), predominantly inattentive type Take 2 capsules (50 mg) by mouth daily. Swallow capsule whole; do not open. If opened accidentally, do not touch eyes; wash hands immediately (product is an eye irritant). 60 capsule 3 07/12/2022 08/23/2022 Discontinued (Reorder) 24 hr buPROPion hydrochloride 150 mg extended release oral tablet (4 sources) Aminoketone Start: 10-12-2022 End: 07-18-2023 take 1 tablet by mouth once daily in the morning buPROPion XL (Wellbutrin XL) 150 MG 24 hr tablet Indications: Attention deficit hyperactivity disorder (ADHD), predominantly inattentive type , Anxiety Take 1 tablet (150 mg) by mouth every morning. Do not crush, chew, or split. 30 tablet 1 10/12/2022 07/18/2023 Discontinued (Med list cleanup) busPIRone hydrochloride 10 mg oral tablet (7 sources) Start: 08-23-2022 End: 08-23-2023 take 1 tablet by mouth twice daily busPIRone (Buspar) 10 MG tablet Indications: Anxiety Take 1 tablet (10 mg) by mouth 2 times daily. 180 tablet 1 08/23/2022 07/18/2023 Discontinued (Med list cleanup) Start: 06-14-2022 End: 06-14-2023 take 1 tablet by mouth twice daily busPIRone (Buspar) 5 MG tablet Indications: Anxiety Take 1 tablet (5 mg) by mouth 2 times daily. 60 tablet 11 06/14/2022 08/23/2022 Discontinued (Reorder) 1 ml dexamethasone phosphate 10 mg/ml injection (2 sources) Corticosteroid Start: 12-01-2023 End: 12-01-2023 inject 4 mg by intramuscular injection once 4 mg, IntraMUSCular, Once, On Cinthya 12/01/23 at 2205, For 1 dose metroNIDAZOLE 500 mg oral tablet (11 sources) Nitroimidazole Antimicrobial Start: 07-22-2016 End: 09-28-2023 take 1 tablet by mouth twice daily metroNIDAZOLE (FLAGYL) 500 mg tablet Take 1 tablet by mouth two times a day for 7 days. 14 tablet 0 09/21/2023 09/28/2023 Comment on above: Take 1 tablet by palma twice daily. for vaginosis. Do not drink alcohol while taking this medication nitrofurantoin, macrocrystals 25 mg / nitrofurantoin, monohydrate 75 mg oral capsule (3 sources) Nitrofuran Antibacterial Start: 09-27-2023 End: 10-02-2023 take 1 capsule by mouth twice daily nitrofurantoin monohydrate and macrocrystal (MACROBID) 100 mg capsule Take 1 capsule by mouth two times a day for 5 days. 10 capsule 0 09/27/2023 09/27/2023 Discontinued Problems Active Problems Problem Classification Problem Date Documented Date Episodic/Chronic Abdominal pain (8 sources) Left flank pain; Translations: [Unspecified abdominal pain] Onset: 12-27-2023 12-27-2023 Episodic Anxiety disorders (20 sources) Anxiety; Translations: [Anxiety disorder, unspecified] Onset: 06-14-2022 Chronic Attention-deficit, conduct, and disruptive behavior disorders (20 sources) Attention deficit hyperactivity disorder, predominantly inattentive type; Translations: [Attention-deficit hyperactivity disorder, predominantly inattentive type] Onset: 06-14-2022 06-14-2022 Chronic Attention-deficit, conduct, and disruptive behavior disorders (2 sources) Attention-deficit hyperactivity disorder, predominantly inattentive type; Translations: [Attention-deficit hyperactivity disorder, predominantly inattentive type] Onset: 06-14-2022 Chronic Calculus of urinary tract (20 sources) Personal history of urinary calculi; Translations: [Kidney stone] Onset: 02-06-2017 09-29-2023 Episodic Cardiac dysrhythmias (1 source) Multiple premature ventricular complexes; Translations: [Ventricular premature depolarization] Chronic Fracture of lower limb (1 source) Closed fracture of phalanx of foot; Translations: [Closed fracture of phalanx of left fifth toe, initial encounter] Episodic Genitourinary symptoms and ill-defined conditions (1 source) Dysuria; Translations: [Dysuria] 09-20-2023 Episodic Inflammatory diseases of female pelvic organs (6 sources) Swelling of vagina; Translations: [Acute vaginitis] Episodic Mycoses (2 sources) Tinea corporis; Translations: [Tinea corporis] 12-27-2023 Episodic Nonspecific chest pain (1 source) Chest pain; Translations: [Chest pain, unspecified] Episodic Other ear and sense organ disorders (2 sources) Ear pressure sensation; Translations: [Other specified disorders of ear, unspecified ear] 01-05-2024 Episodic Other lower respiratory disease (1 source) Dyspnea; Translations: [Shortness of breath] Episodic Other nervous system disorders (2 sources) Myopathy, unspecified; Translations: [Myopathy, unspecified] Onset: 02-06-2017 Chronic Other upper respiratory disease (20 sources) Seasonal allergy; Translations: [Other seasonal allergic rhinitis] Onset: 10-12-2022 Chronic Other upper respiratory infections (1 source) Acute sinusitis; Translations: [Acute sinusitis, unspecified] Episodic Spondylosis; intervertebral disc disorders; other back problems (10 sources) Pain in lumbar spine ; Translations: [Lumbar spine pain] Onset: 12-01-2023 11-02-2023 Episodic Sprains and strains (1 source) Lumbar sprain; Translations: [Sprain of ligaments of lumbar spine, initial encounter] Episodic Substance-related disorders (2 sources) Nicotine dependence, unspecified, uncomplicated; Translations: [Nicotine dependence, unspecified, uncomplicated] Onset: 02-06-2017 Chronic Unclassified (1 source) Low back pain, unspecified; Translations: [Low back pain, unspecified] Onset: 02-15-2024 Past or Other Problems Problem Classification Problem Date Documented Date Episodic/Chronic Allergic reactions (2 sources) Allergy status to narcotic agent status; Translations: [Allergy status to narcotic agent status] Onset: 02-06-2017 Episodic Cardiac dysrhythmias (5 sources) Palpitations; Translations: [Palpitations] Onset: 07-18-2023 Episodic Contraceptive and procreative management (20 sources) Intrauterine contraceptive device in situ; Translations: [Presence of (intrauterine) contraceptive device] Onset: 08-14-2016 06-02-2020 Episodic Mood disorders (20 sources) Bipolar disorder; Translations: [Bipolar disorder, unspecified] Onset: 12-30-2014 Resolved: 06-14-2022 06-02-2020 Chronic Mood disorders (20 sources) Mood disorders Onset: 06-14-2022 Resolved: 08-23-2022 06-14-2022 Other aftercare (2 sources) Encounter for other specified aftercare; Translations: [Encounter for other specified aftercare] Onset: 02-06-2017 Episodic Other circulatory disease (20 sources) H/O: heart failure; Translations: [Personal history of other diseases of the circulatory system] Onset: 06-14-2022 Episodic Other circulatory disease (2 sources) Personal history of other diseases of the circulatory system; Translations: [Personal history of other diseases of the circulatory system] Onset: 06-14-2022 Episodic Other connective tissue disease (5 sources) Pain in left lower limb; Translations: [Pain in left leg] Onset: 12-30-2014 05-11-2021 Episodic Other screening for suspected conditions (not mental disorders or infectious disease) (20 sources) Abnormal cervical Papanicolaou smear; Translations: [Other abnormal cytological findings on specimens from cervix uteri] Onset: 02-13-2019 Resolved: 06-14-2022 03-17-2019 Episodic Other skin disorders (5 sources) Eruption; Translations: [Rash and other nonspecific skin eruption] Onset: 12-31-2014 05-11-2021 Episodic Skin and subcutaneous tissue infections (5 sources) Cellulitis of left lower limb; Translations: [Cellulitis of left lower limb] Onset: 12-30-2014 05-11-2021 Episodic Unclassified (1 source) Low back pain, unspecified; Translations: [Low back pain, unspecified] Onset: 02-15-2024 Viral infection (20 sources) Herpesviral infection, unspecified; Translations: [Herpes simplex type 1 infection] Onset: 02-06-2017 06-02-2020 Episodic Results Test Name Value Interpretation Reference [facility] Follow-up visit [id number] Rosemary Garcia 1985 F Date Provider Department Center 02/15/2024 [id number] CHAVEZ [facility] Family History Problem Relation Age of Onset Heart attack Mother Heart disease Mother Stroke Mother Other Mother No Known Problems Sister No Known Problems Daughter No Known Problems Son Heart attack Maternal Grandmother No Known Problems Maternal Grandfather No Known Problems Paternal Grandmother No Known Problems Paternal Grandfather Family Status - Relation Status Age at Mother Alive Father Alive Sister Alive Daughter Alive Son Alive Maternal Grandmother Maternal Grandfather Paternal Grandmother Paternal Grandfather Level of Service:44615 [place] OFFICE/OUTPATIENT ESTABLISHED LOW MDM 20 MIN Reason for Visit and Comments: Back Pain [12] [facility] Progress Noteon 02-15-2024 Progress Note Subjective Patient ID: Odin Garcia is a 38 y.o. female who presents for Back Pain. Was going to [place] [facility]. Just finished there. Right hip is higher than the left. Was moving furniture. Got worse again. Is on Toradol and cyclobenzaprine. Did great with the therapy. She needs a renewal referral. Chart reviewed. Review of Systems Gastrointestinal: Negative for constipation. Genitourinary: Negative for difficulty urinating. Musculoskeletal: Positive for back pain and gait problem. Objective Physical Exam Vitals and nursing note reviewed. Constitutional: General: She is not in acute distress. Appearance: She is not ill-appearing or toxic-appearing. Musculoskeletal: General: Tenderness present. Comments: Tender over the sacral area. SLR is normal on both sides. DTR is good on both sides. Strength is intact. Neurological: Mental Status: She is alert. Assessment/Plan Problem List Items Addressed This Visit None Visit Diagnoses Lumbar spine pain - Primary Acute, uncontrolled Had the MRI in October Needs to go back to therapy Relevant Medications predniSONE (Deltasone) 10 MG tablet Other Relevant Orders External referral to Physical Therapy [facility] [id number] [address] Sched[address] Same Day with Dr. Chavez 02/14/2024 [facility] 36on 01-17-2024 36 Recent Visits Date Type Provider Dept 11/02/23 Office Visit Cecilia Cooper DO [facility] 09/29/23 Office Visit Deena Chavez MD [facility] Showing recent visits within past 365 days and meeting all other requirements Future Appointments No visits were found meeting these conditions. Showing future appointments within next 90 days and meeting all other requirements Requested Prescriptions Pending Prescriptions Disp Refills ketorolac (Toradol) 10 MG tablet 60 tablet 0 Sig: Take 1 tablet (10 mg) by mouth every 6 hours as needed for moderate pain (4-6). gabapentin (Neurontin) 300 MG capsule 90 capsule 0 Sig: Take 1 capsule (300 mg) by mouth every 8 hours as needed (back pain). Provider: Cecilia Cooper DO [id number] [place], [place] - [address] [facility] [id number] Verified pharmacy: yes Verified day(s) supplied: yes Verified refill(s) needed (previous prescription showing no refills in chart): Yes Have you received any controlled medications from any other provider? Overdue for visit: No If yes - patient scheduled? N/A Most recent labs completed in chart? N/A No UDS or contract on file [facility] 36 Last seen 07/18/23. [facility] 36on 01-05-[address]arte [facility] 36 Patient was referred to Dr. Mcginnis but he does not take her ins. Patient [facility] Progress Noteon 01-03-2024 Progress Note Chart reviewed of ED follow up Seen in [facility] ED on 12/01/2023 Reason: Acute left sided low back pain with left - sided sciatica Discharge instructions: Medications as listed. Voice message left: I am calling from Deena Chavez MD's office, following up after your recent ED visit. Please call the office if your symptoms are worse and we can schedule a follow up appointment. If patient calls back, please assist with scheduling a ED follow up appointment. [facility] BASIC METABOLIC PANELon 12-14 Anion gap [Moles/Vol] 7 mmol/L Normal - [facility] Comment on above: Performed By: #### L [id number], LAB15 ####Flamer Sealer: GIOVANNA SMITH ([phone])[facility] JAY JAY InHiroTMAN (SWRLAB)[address] [place] [address] Calcium [Mass/Vol] 9.9 mg/dL Normal 8.4-10.4 [facility] Comment on above: Performed By: #### L AB143, LAB15 ####Flamer Sealer: GIOVANNA SMITH ([phone])[facility] JAY JAY RITTMAN (SWRLAB)[address] [place] [address] [place] Chloride [Moles/Vol] 102 mmol/L Normal 98-107 [facility] Comment on above: Performed By: #### L AB143, LAB15 ####Flamer Sealer: GIOVANNA SMITH ([phone])[facility] GOYAL RITTMAN (SWRLAB)[address] CO2 [Moles/Vol] 26 mmol/L Normal 22-30 [facility] Comment on above: Performed By: #### L AB143, LAB15 ####Flamer Sealer: GIOVANNA SMITH ([phone])[facility] JAY JAY RITTMAN (SWRLAB)[address] [place] [address] Creatinine [Mass/Vol] 0.95 mg/dL Normal 0.52-1.04 [facility] Comment on above: Performed By: #### L 143, LAB15 ####Flamer Sealer: GIOVANNA SMITH ([phone])[facility] JAY JAY RODRIGUEZTMAN (SWRLAB)[address] [place] [address] [place] GLOMERULAR FILTRATION RATE ML/MIN/1.73 SQ M.PREDICTED 79.3 mL/min/1.73m*2 Normal >60.0 [facility] Comment on above: Result Comment: Calc ulation based on the Chronic Kidney Disease Epidemiology Collaboration (CKD-EPI) equation refit without adjustment for race Performed By: #### L AB143, LAB15 ####Flamer Sealer: GIOVANNA MSITH ([id number])[facility]ITALJason RODRIGUEZTMAN (SWRLAB)[address] [place] [address] [place] Glucose [Mass/Vol] 100 mg/dL Normal 70-100 [facility] Comment on above: Performed By: #### L AB143, LAB15 ####Flamer Sealer: GIOVANNA SMITH ([phone])[facility]ITALJason GOYAL RITTMAN (SWRLAB)[address] [place] [address] [place] Potassium [Moles/Vol] 4.4 mmol/L Normal 3.5-5.1 [facility] Comment on above: Performed By: #### L AB143, LAB15 ####Flamer Sealer: GIOVANNA SMITH ([phone])[facility]ITALJason GOYAL RITTMAN (SWRLAB)[address] [place] [address] [place] Sodium [Moles/Vol] 135 mmol/L Normal 135-145 [facility] Comment on above: Performed By: #### L AB143, LAB15 ####Flamer Sealer: GIOVANNA SMITH ([id number])[facility]ITALJason GOYAL RITTMAN (SWRLAB)[address] Urea nitrogen [Mass/Vol] 14 mg/dL Normal 7-17 [facility] Comment on above: Performed By: #### L AB143, LAB15 ####Flamer Sealer: GIOVANNA SMITH ([phone])[facility] JAY JAY RODRIGUEZTMAN (SWRLAB)[address] [place] [address] Basic metabolic 1998 panelon 12-27-2023 Anion gap [Moles/Vol] 7 mmol/L 3 - 13 mmol/L [facility] Calcium [Mass/Vol] 9.9 mg/dL 8.4 - 10.4 mg/dL [facility] Chloride [Moles/Vol] 102 mmol/L 98 - 107 mmol/L [facility] CO2 [Moles/Vol] 26 mmol/L 22 - 30 mmol/L [facility] Creatinine [Mass/Vol] 0.95 mg/dL 0.52 - 1.04 mg/dL [facility] GFR/1.73 sq M.predicted (S/P/Bld) [Vol rate/Area] 79.3 mL/min - PINF [facility] Comment on above: Calculation based on the Chronic Kidney Disease Epidemiology Collaboration (CKD-EPI) equation refit without adjustment for race Glucose [Mass/Vol] 100 mg/dL 70 - 100 mg/dL [facility] Interpretation and review of laboratory results Normal [facility] Potassium [Moles/Vol] 4.4 mmol/L 3.5 - 5.1 mmol/L [facility] Sodium [Moles/Vol] 135 mmol/L 135 - 145 mmol/L [facility] Urea nitrogen [Mass/Vol] 14 mg/dL 7 - 17 mg/dL [facility] CBC (HEMOGRAM)on 12-27-2023 Erythrocyte distribution width (RBC) [Ratio] 12.4 % Normal 11.5-15.0 [facility] Comment on above: Performed By: #### L [id number] ####Flamer Sealer: GIOVANNA SMITH ([phone])[facility]ITALJason GOYAL RITTMAN (SWRLAB)[address] [place] [address] Hematocrit (Bld) [Volume fraction] 42.9 % Normal 35.0-47.0 [facility] Comment on above: Performed By: #### L AB294 ####Flamer Sealer: GIOVANNA SMITH ([phone])[facility]ITALJason GOYAL RITTMAN (SWRLAB)[address] [place] [address] Hemoglobin (Bld) [Mass/Vol] 14.5 g/dL Normal 11.7-16.0 [facility] Comment on above: Performed By: #### L AB294 ####Flamer Sealer: GIOVANNA SMITH ([phone])[facility]Jason GOYAL RITTMAN (SWRLAB)[address] [place] [address] MCH (RBC) [Entitic mass] 30.3 pg Normal 26.0-34.0 [facility] Comment on above: Performed By: #### L AB294 ####Flamer Sealer: GIOVANNA SMITH ([id number])[facility]Jason GOYAL RITTMAN (SWRLAB)[address] [place] [address] MCHC 33.8 % Normal 30.5-36.0 [facility] Comment on above: Performed By: #### L AB294 ####Flamer Sealer: GIOVANNA SMITH ([phone])[facility]Jason GOYAL RITTMAN (SWRLAB)[address] [place] [address] MCV (RBC) [Entitic vol] 89.6 fL Normal 77.0-99.0 [facility] Comment on above: Performed By: #### L AB294 ####Flamer Sealer: GIOVANNA SMITH ([phone])[facility]ITALJason GOYAL RITTMAN (SWRLAB)[address] Platelet mean volume (Bld) [Entitic vol] 10.3 fL Normal 9.0-12.7 [facility] Comment on above: Result Comment: MPV is a calculated measurement using platelet volume ratio Performed By: #### L AB294 ####Flamer Sealer: GIOVANNA SMITH ([phone])[facility]ITALJason RODRIGUEZTMAN (SWRLAB)[address] [place] [address] Platelets (Bld) [#/Vol] 294 10*3/uL Normal 140-440 [facility] Comment on above: Performed By: #### L AB294 ####Flamer Sealer: GIVOANNA SMITH ([id number])[facility]Jason RODRIGUEZTMAN (SWRLAB)[address] [place] [address] RBC (Bld) [#/Vol] 4.79 10*6/uL Normal 3.80-5.20 [facility] Comment on above: Performed By: #### L AB294 ####Flamer Sealer: GIOVANNA SMITH ([phone])[facility]Jason RODRIGUEZTMAN (SWRLAB)[address] [place] [address] WBC (Bld) [#/Vol] 7.8 10*3/uL Normal 3.6-10.7 [facility] Comment on above: Performed By: #### L AB294 ####Flamer Sealer: GIOVANNA SMITH ([id number])[facility]Jason RODRIGUEZTMAN (SWRLAB)[address] [place] [address] CBC panel Auto (Bld)on 12-26 Erythrocyte distribution width (RBC) [Ratio] 12.4 % 11.5 - 15.0 % [facility] Hematocrit (Bld) [Volume fraction] 42.9 % 35.0 - 47.0 % [facility] Hemoglobin (Bld) [Mass/Vol] 14.5 g/dL 11.7 - 16.0 g/dL [facility] Interpretation and review of laboratory results Normal [facility] MCH (RBC) [Entitic mass] 30.3 pg 26.0 - 34.0 pg [facility] MCHC (RBC) [Mass/Vol] 33.8 % 30.5 - 36.0 % [facility] MCV (RBC) [Entitic vol] 89.6 fL 77.0 - 99.0 fL [facility] Platelet mean volume (Bld) [Entitic vol] 10.3 fL 9.0 - 12.7 fL [facility] Comment on above: MPV is a calculated measurement using platelet volume ratio Platelets (Bld) [#/Vol] 294 10*3/uL 140 - 440 10*3/uL [facility] RBC (Bld) [#/Vol] 4.79 10*6/uL 3.80 - 5.2 0 10*6/uL [facility] WBC (Bld) [#/Vol] 7.8 10*3/uL 3.6 - 10.7 10*3/uL [facility] COMPLETE URINALYSISon 2023 BILIRUBIN, TOTAL PRESENCE IN URINE Negative Normal Negative [facility] Comment on above: Performed By: #### L [id number] ####Flamer Sealer: GIOVANNA SMITH ([id number])[facility]A JAY JAY RITTMAN (SWRLAB)[address] [place] [address] Clarity (U) Clear Normal Clear [facility] Comment on above: Performed By: #### L AB347 ####Flamer Sealer: GIOVANNA SMITH ([phone])[facility]A JAY JAY RITTMAN (SWRLAB)[address] [place] [address] Color (U) Colorless Normal Lt. Yellow [facility] Comment on above: Performed By: #### L AB347 ####Flamer Sealer: GIOVANNA SMITH ([phone])[facility]A JAY JAY RITTMAN (SWRLAB)[address] [place] [address] GLUCOSE (MG/DL) IN URINE Normal Normal Normal (<70) [facility] Comment on above: Performed By: #### L AB347 ####Flamer Sealer: GIOVANNA SMITH ([id number])[facility] JAY JAY RITTMAN (SWRLAB)[address] [place] [address] [place] HEMOGLOBIN PRESENCE IN URINE Negative Normal Negative [facility] Comment on above: Performed By: #### L AB347 ####Flamer Sealer: GIOVANNA SMITH ([id number])[facility] HOSPITALaJson GOYAL RITTMAN (SWRLAB)[address] [place] [address] [place] Ketones Ql (U) Negative Normal Negative [facility] Comment on above: Performed By: #### L AB347 ####Flamer Sealer: GIOVANNA SMITH ([id number])[facility]ITALJason GOYAL RITTMAN (SWRLAB)[address] LEUKOCYTE ESTERASE PRESENCE IN URINE BY TEST STRIP Negative Normal Negative [facility] Comment on above: Performed By: #### L [id number] ####Flamer Sealer: GIOVANNA SMITH ([phone])[facility]ITALJason GOYAL RITTMAN (SWRLAB)[address] [place] [address] [place] NITRITE PRESENCE IN URINE Negative Normal Negative [facility] Comment on above: Performed By: #### L AB347 ####Flamer Sealer: GIOVANNA SMITH ([phone])[facility]ITALJason GOYAL RITTMAN (SWRLAB)[address] [place] [address] [place] pH (U) 5.5 [pH] Normal 5.0-8.0 [facility] Comment on above: Performed By: #### L [id number] ####Flamer Sealer: GIOVANNA SMITH ([phone])[facility]ITALJason GOYAL RITTMAN (SWRLAB)[address] [place] [address] [place] Protein (U) [Mass/Vol] Negative Normal Negative [facility] Comment on above: Performed By: #### L AB347 ####Flamer Sealer: GIOVANNA SMITH ([id number])[facility]ITALJason GOYAL RITTMAN (SWRLAB)[address] [place] [address] [place] Specific gravity (U) [Rel density] 1.003 Low 1.005-1.030 [facility] Comment on above: Performed By: #### L [id number] ####Flamer Sealer: GIOVANNA SMITH ([id number])[facility] MICHAELTMAN (SWRLAB)[address] [place] [address] UROBILINOGEN (MG/DL) IN URINE Normal Normal Normal (0-1) [facility] Comment on above: Performed By: #### L [id number] ####Flamer Sealer: GIOVANNA TORREZCameron ([phone])[facility] RITTMAN (SWRLAB)[address] [place] [address] CT ABDOMEN PELVIS WO IV CONT [facility] 12-27-2023 CT ABDOMEN PELVIS WO IV CONTRAST Patient Name: ROSEMARY GARCIA : 1985 Exam Date/Time: 12/27/2023 02:22 Procedure: CT ABDOMEN PELVIS WO IV CONTRAST Ordering Provider: SCALES NICHOLAS Reason For Exam: Flank pain, kidney stone suspected EXAM: CT Abdomen and pelvis INDICATION: Flank pain, kidney stone suspected COMPARISON: none TECHNIQUE: CT of the abdomen and pelvis was performed without intravenous contrast. Coronal and sagittal reformats were obtained. Dose reduction was employed with automated exposure control. FINDINGS: LOWER CHEST: Calcified granulomas noted in the right lung base. ABDOMEN: LIVER: within normal limits. BILE DUCTS: normal caliber. GALLBLADDER: No calcified gallstones. Normal caliber wall. PANCREAS: within normal limits. SPLEEN: within normal limits. ADRENALS: within normal limits. KIDNEYS: There are punctate bilateral renal calculi, right greater than left. No hydroureteronephrosis . PELVIS: REPRODUCTIVE ORGANS: Intrauterine device noted. No pelvic masses. URETERS: No ureteral calculi or hydroureter. BLADDER: within normal limits. BOWEL: Bowel is normal in caliber. Appendix within normal limits. No enlarged mesenteric lymph nodes. PERITONEUM: no ascites or free air, no fluid collection. VESSELS: Within normal limits. LYMPH NODES: No enlarged nodes. RETROPERITONEUM: within normal limits. ABDOMINAL WALL: within normal limits. BONES: within normal limits. IMPRESSION: Punctate bilateral renal calculi. No hydroureteronephrosis . Report Dictated on Electronically Signed By: Hua Robles MD Electronically Signed Date/Time: 12/27/2023 3:12 AM EDT [facility] CT Abdomen WO contraston Punctate bilateral renal calculi. No hydroureteronephrosis . Report Dictated on Electronically Signed By: Hua Robles MD Electronically Signed Date/Time: 12/27/2023 3:12 AM EDT [facility] Patient Name: ROSEMARY GARCIA : 1985 Exam Date/Time: 12/27/2023 02:22 Procedure: CT ABDOMEN PELVIS WO IV CONTRAST Ordering Provider: SCALES NICHOLAS Reason For Exam: Flank pain, kidney stone suspected EXAM: CT Abdomen and pelvis INDICATION: Flank pain, kidney stone suspected COMPARISON: none TECHNIQUE: CT of the abdomen and pelvis was performed without intravenous contrast. Coronal and sagittal reformats were obtained. Dose reduction was employed with automated exposure control. FINDINGS: LOWER CHEST: Calcified granulomas noted in the right lung base. ABDOMEN: LIVER: within normal limits. BILE DUCTS: normal caliber. GALLBLADDER: No calcified gallstones. Normal caliber wall. PANCREAS: within normal limits. SPLEEN: within normal limits. ADRENALS: within normal limits. KIDNEYS: There are punctate bilateral renal calculi, right greater than left. No hydroureteronephrosis . PELVIS: REPRODUCTIVE ORGANS: Intrauterine device noted. No pelvic masses. URETERS: No ureteral calculi or hydroureter. BLADDER: within normal limits. BOWEL: Bowel is normal in caliber. Appendix within normal limits. No enlarged mesenteric lymph nodes. PERITONEUM: no ascites or free air, no fluid collection. VESSELS: Within normal limits. LYMPH NODES: No enlarged nodes. RETROPERITONEUM: within normal limits. ABDOMINAL WALL: within normal limits. BONES: within normal limits. [facility] Hua Robles MD - 12/27/2023 Patient Name: ROSEMARY GARCIA : 1985 Exam Date/Time: 12/27/2023 02:22 Procedure: CT ABDOMEN PELVIS WO IV CONTRAST Ordering Provider: SCALES NICHOLAS Reason For Exam: Flank pain, kidney stone suspected EXAM: CT Abdomen and pelvis INDICATION: Flank pain, kidney stone suspected COMPARISON: none TECHNIQUE: CT of the abdomen and pelvis was performed without intravenous contrast. Coronal and sagittal reformats were obtained. Dose reduction was employed with automated exposure control. FINDINGS: LOWER CHEST: Calcified granulomas noted in the right lung base. ABDOMEN: LIVER: within normal limits. BILE DUCTS: normal caliber. GALLBLADDER: No calcified gallstones. Normal caliber wall. PANCREAS: within normal limits. SPLEEN: within normal limits. ADRENALS: within normal limits. KIDNEYS: There are punctate bilateral renal calculi, right greater than left. No hydroureteronephrosis . PELVIS: REPRODUCTIVE ORGANS: Intrauterine device noted. No pelvic masses. URETERS: No ureteral calculi or hydroureter. BLADDER: within normal limits. BOWEL: Bowel is normal in caliber. Appendix within normal limits. No enlarged mesenteric lymph nodes. PERITONEUM: no ascites or free air, no fluid collection. VESSELS: Within normal limits. LYMPH NODES: No enlarged nodes. RETROPERITONEUM: within normal limits. ABDOMINAL WALL: within normal limits. BONES: within normal limits. IMPRESSION: Punctate bilateral renal calculi. No hydroureteronephrosis . Report Dictated on Electronically Signed By: Hua Robles MD Electronically Signed Date/Time: 12/27/2023 3:12 AM EDT [facility] Radiology Study observation (narrative) [facility] CT Abdomen WO contrastOrdere d By: Hua Robles on 12-27-2023 [facility] Work Phone: ED Nursing Noteon 12-27-2023 ED Nursing Note Pt presents to the E D w c/o LLQ pain 3/10. Pt has a hx of kidney stones. Pt states I have had 25 kidney stones in the past. This feels like the same pain as before. I usually vomit w kidney stones and I am afraid I may throw up. I have a herniated disc at L4-5 and if I vomit I may throw my back out, that is what I am really afraid of. Pain level is 3/10. Pt has rx for flomax, zofran and toradol from the last kidney stone. Pt took a zofran 4 hours ago and a flomax earlier in the day Normal [facility] ED Nursing Note Pt given dc instructions and follow up care, pt verbalizes understanding. IV dc'd, cannula intact. Pt amb indep to dc area Normal [facility] ED Provider Noteon ED Provider Note Emergency Department Encounter [facility] ED Patient: Rosemary Garcia : 1985 Date of Evaluation: 12/27/2023 ED Provider: Last Scales MD CHIEF COMPLAINT: Abdominal pain Chief Complaint Patient presents with Abdominal Pain HPI: Rosemary Garcia is a 38 y.o. female with PMH per EMR history of kidney stones, presents with concern for abdominal pain. Patient reports 2 PM this afternoon she developed pain in her left lower quadrant abdomen, as well as left flank although she reports she always has pain in her back which is difficult to discern what is new pain, she reports pain feels exactly the same as prior kidney stones in the past, she denies dysuria hematuria urinary frequency, endorses nausea without vomiting, denies fever chills, denies abdominal pain otherwise, vaginal bleeding or discharge, chest pain, cough, shortness of breath, or other associated symptoms or concerns. Patient denies numbness or weakness throughout the extremities, urinary retention or incontinence. REVIEW OF SYSTEMS: Pertinent positives and negatives as per HPI. HISTORIES: PAST MEDICAL HISTORY: as per HPI SOCIAL HISTORY: Per EMR history of tobacco use, reports she is sexually active with 1 consistent male partner only-denies concern for STDs MEDICATIONS: Nursing notes and EMR reviewed ALLERGIES: Nursing notes and EMR reviewed PHYSICAL EXAM: Vital signs: reviewed General: Appears uncomfortable, unable to find position of comfort walking throughout the room Eyes: no conjunctival injection, eyes tracking HEENT: airway patent, mucous membranes moist Cardiovascular: regular rhythm, normal rate Respiratory: non-labored breathing, breath sounds clear Gastrointestinal: soft, non-distended, non-tender to deep palpation throughout, no rigidity guarding, no rash including the left lower quadrant Back: Refuses percussion, no tenderness to palpation midline thoracic or lumbar spine, no step-offs or deformities, no rash including the left flank : Patient declines pelvic exam Extremities: no obvious deformity, non edematous Integumentary: warm, dry Neurologic: alert, no obvious neurologic deficits MEDICAL DECISION MAKING: Medications ketorolac (Toradol) injection 15 mg (15 mg IntraVENous Given 12/27/23 0111) ondansetron (Zofran) injection 4 mg (4 mg IntraVENous Given 12/27/23 0113) Rosemary Garcia is a 38 y.o. female who presents as above, left flank and left lower quadrant abdominal pain, history of kidney stones, reports symptoms are similar to prior kidney stones in the past, she is afebrile with reassuring vitals, well-appearing, benign abdominal exam, presentation concerning for urolithiasis, urinary tract infection, lesser suspicion for an acute intra-abdominal process, discussed management, patient agrees to obtain CT abdomen pelvis, labs, urinalysis, treat with Toradol and Zofran. Patient was able to void without limitation. Labs obtained, interpreted by me, notable for no renal dysfunction, hCG negative, no leukocytosis, UA no UTI or hematuria CT abdomen pelvis per radiologist interpretation punctate bilateral renal calculi, no hydroureteronephrosis , appendix within normal limits, intrauterine device noted, no pelvic masses Patient informed of findings, she reports symptoms improved with treatment, on reevaluation she is in no apparent discomfort or distress, resting in bed comfortably, abdomen is nontender to deep palpation throughout including left lower quadrant, I discussed further management, patient refused self swab for STD testing, she refused transfer to [facility] for pelvic ultrasound to evaluate for an acute gynecologic process including ovarian torsion with clinically low suspicion (pelvic ultrasound not available at this facility at this time), patient elects to be discharged, will prescribe Zofran, recommend NSAIDs for discomfort, recommend close outpatient follow-up with established urologist, web production assistant, and PCP in the next 3 to 5 days with strict return precautions discussed, patient expresses understanding and agreement with plan, stable for discharge. DIAGNOSIS: Left flank pain, left lower quadrant abdominal pain DISPOSITION: Discharge PRESCRIPTIONS: New Prescriptions ONDANSETRON (ZOFRAN) 4 MG TABLET Take 1 tablet (4 mg) by mouth in the morning and 1 tablet (4 mg) at noon and 1 tablet (4 mg) in the evening and 1 tablet (4 mg) before bedtime. Do all this for 3 days. Comment: Please note this report has been produced using speech recognition software and may contain errors related to that system including errors in grammar, punctuation, and spelling, as well as words and phrases that may be inappropriate. If there are any questions or concerns please feel free to contact the dictating provider for clarification. Last Scales MD [employer] Last Scales MD 12/27/23 0350 Normal [facility] HCG QUANTITATIVE BLOODon HCG QUANTITATIVE <2 Normal Females <=5 [facility] Comment on above: Result Comment: INDIO Ortez COMMENTS: Values in should double every 2 to 3 days for the first 6 weeks. Elevated concentrations of human chorionic gonadotropin (hCG) measured in the first trimester of are observed in normal , but may serve as an indication of chorionic carcinoma, hydatiform mole, or multiple . Decreasing hCG concentrations indicate threatened or missed , recent termination of , ectopic , gestosis or intrauterine . [place]- and postmenopausal females may have detectable hCG concentrations (< or = to 14 mIU/mL) due to pituitary production of hCG. Serum follicle-stimulating hormone measurement may aid in ruling-out in this population. Cutoffs of greater than 20 to 45 mIU/mL have been suggested and are method dependent. False-elevations (called phantom human chorionic gonadotropin: hCG) may occur with patients who have human antianimal or heterophilic antibodies. Some specimens may not dilute linearly due to abnormal forms of hCG. Elevated hCG concentrations not associated with are found in patients with other diseases such as tumors of the germ cells, ovaries, bladder, pancreas, stomach, lungs, and liver. This test is not intended to detect or monitor tumors or gestational trophoblastic disease. Performed By: #### L [id number], LAB15 ####Flamer Sealer: GIOVANNA SMITH ([phone])[facility] Laboratory - Chemistry and C hemistry - challengeon 12-27-2023 HCG.beta subunit Qn Females <=5 mIU/mL [facility] No Panel Informationon 12-26 Values in should double every 2 to 3 days for the first 6 weeks. Elevated concentrations of human chorionic gonadotropin (hCG) measured in the first trimester of are observed in normal , but may serve as an indication of chorionic carcinoma, hydatiform mole, or multiple . Decreasing hCG concentrations indicate threatened or missed , recent termination of , ectopic , gestosis or intrauterine . [place]- and postmenopausal females may have detectable hCG concentrations (< or = to 14 mIU/mL) due to pituitary production of hCG. Serum follicle-stimulating hormone measurement may aid in ruling-out in this population. Cutoffs of greater than 20 to 45 mIU/mL have been suggested and are method dependent. False-elevations (called phantom human chorionic gonadotropin: hCG) may occur with patients who have human antianimal or heterophilic antibodies. Some specimens may not dilute linearly due to abnormal forms of hCG. Elevated hCG concentrations not associated with are found in patients with other diseases such as tumors of the germ cells, ovaries, bladder, pancreas, stomach, lungs, and liver. This test is not intended to detect or monitor tumors or gestational trophoblastic disease. [facility] Urinalysis complete panel (U )Ordered By: Margarita Davey on 12-27-2023 Bilirubin Ql (U) Negative Negative mg/dL [facility] Clarity (U) Clear Clear [facility] Color (U) Colorless Lt. Yellow [facility] Glucose Ql (U) Normal Normal (<70) mg/dL [facility] Hemoglobin Ql (U) Negative Negative mg/dL [facility] Interpretation and review of laboratory results Abnormal [facility] Ketones (U) [Mass/Vol] Negative Negative mg/dL [facility] Leukocyte esterase Test strip Ql (U) Negative Negative James/uL [facility] Nitrite Ql (U) Negative Negative [facility] th pH (U) 5.5 [pH] 5.0 - 8.0 pH [facility] Protein (U) [Mass/Vol] Negative Negative mg/dL [facility] Specific gravity (U) [Rel density] 1.003 Low 1.005 - 1.030 [facility] Urobilinogen (U) [Mass/Vol] Normal Normal (0-1) mg/dL [facility] 3612-20-2023 36 Authorized on 12.05, performed on 12.12 Normal [facility] 3612-16-2023 36 Recent Visits Date Type Provider Dept 11/02/23 Office Visit Cecilia Cooper DO [facility] 09/29/23 Office Visit Deena Chavez MD [facility] Showing recent visits within past 365 days and meeting all other requirements Future Appointments No visits were found meeting these conditions. Showing future appointments within next 90 days and meeting all other requirements Requested Prescriptions Pending Prescriptions Disp Refills ketorolac (Toradol) 10 MG tablet 60 tablet 0 Sig: Take 1 tablet (10 mg) by mouth every 6 hours as needed for moderate pain (4-6). gabapentin (Neurontin) 100 MG capsule 128 capsule 0 Sig: Take 1 capsule (100 mg) by mouth Nightly for 2 days, THEN 1 capsule (100 mg) 3 times daily for 2 days, THEN 2 capsules (200 mg) 3 times daily for 20 days. Provider: Cecilia Cooper DO [id number] - [place], [place] - [address] [facility] [place] [address] Verified pharmacy: yes Verified day(s) supplied: yes Verified refill(s) needed (previous prescription showing no refills in chart): Yes Have you received any controlled medications from any other provider? Overdue for visit: No If yes - patient scheduled? N/A Most recent labs completed in chart? No Normal [facility] 36 Patient comment: I'm completely out of them. It helps as I get nauseous depending on which nerve is being disrupted. The quick dissolve ones help better then the pills. Normal [facility] ED Nursing Noteon 12-01-2023 ED Nursing Note Pt has been having lower back pain for 2 months. Got an xray 1 month ago which showed L5 and L4 issues. Marci Forbes RN 12/01/237 Normal [facility] ED Provider Noteon ED Provider Note EMERGENCY DEPARTMENT ENCOUNTER Pt Name: Rosemary Garcia Birthdate 1985 Date of evaluation: 12/01/2023 ED Provider: Renetta Chapin MD CHIEF COMPLAINT No chief complaint on file. HISTORY OF PRESENT ILLNESS (Location/Symptom, Timing/Onset, Context/Setting, Quality, Duration, Modifying Factors, Severity) Note limiting factors. HPI Rosemary Garcia is a 38 y.o. female who presents to the emergency department for back pain. Patient states that she been having chronic back pain to the low back for the last 2 months. She states that she is a history of a back injury and feels like her spine was being crushed . Denies any difficulty with ambulation. Denies any urinary incontinence or urinary retention. No bowel incontinence. Denies any perineal numbness or saddle anesthesia. Denies any fevers or chills. Denies any surgeries on her back. She states that her chiropractor recommended that she get an MRI of her spine in order for him to be able to do manipulations on her back. Nursing Notes were reviewed. REVIEW OF SYSTEMS Review of Systems Pertinent positives and negatives per HPI PAST MEDICAL HISTORY 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 Headache Herpes Kidney calculi Kidney stones Myopathy SURGICAL HISTORY Past Surgical History: Procedure Laterality Date CYSTOSCOPY LITHOTRIPSY CURRENT MEDICATIONS Discharge Medication List as of 12/01/2023 10:04 PM CONTINUE these medications which have NOT CHANGED Details buprenorphine-naloxon e (Suboxone) 8-2 MG per sublingual film APPLY 1 FILM SUBLINGUALLY TWICE DAILY, Historical Med gabapentin (Neurontin) 100 MG capsule Multiple Dosages:Starting Tue11/14/2023, Until Tue11/15/2023 at 2359, THEN Starting Tue11/16/2023, Until Tue11/17/2023 at 2359, THEN Starting Tue11/18/2023, Until Tue12/07/2023 at 2359Take 1 capsule (100 mg) by mouth Nightly for 2 days, THEN 1 capsule (10 0 mg) 3 times daily for 2 days, THEN 2 capsules (200 mg) 3 times daily for 20 days., Normal ketorolac (Toradol) 10 MG tablet Take 1 tablet (10 mg) by mouth every 6 hours as needed for moderate pain (4-6)., Starting Tue11/14/2023, Normal loratadine (Claritin) 10 MG tablet TAKE 1 TABLET BY MOUTH ONCE DAILY, Starting Tue08/18/2023, Normal metoprolol tartrate (Lopressor) 25 MG tablet TAKE 1 TABLET BY MOUTH EVERY 8 HOURS NEEDED for palpitations over 100/min, Normal ondansetron ODT (Zofran-ODT) 4 MG disintegrating tablet Take 4 mg by mouth every 8 hours as needed for nausea., Starting Tue09/27/2023, Historical Med phenazopyridine (Pyridium) 100 MG tablet Take 100 mg by mouth every 8 hours as needed., Starting Tue09/27/2023, Historical Med tamsulosin (Flomax) 0.4 MG 24 hr capsule Take 1 capsule (0.4 mg) by mouth daily., Starting Tue09/30/2023, Until 09/29/2024, Normal valACYclovir (Valtrex) 500 MG tablet TAKE 1 TABLET BY MOUTH ONCE DAILY, Normal ALLERGIES Meperidine and Morphine FAMILY HISTORY Family History Problem Relation Name Age of Onset Heart attack Mother Heart disease Mother Stroke Mother Other (triple bypass) Mother No Known Problems Sister No Known Problems Daughter No Known Problems Son Heart attack Maternal Grandmother No Known Problems Maternal Grandfather No Known Problems Paternal Grandmother No Known Problems Paternal Grandfather SOCIAL HISTORY Social History Socioeconomic History Marital status: Tobacco Use Smoking status: Every Day Current packs/day: 0.50 Types: Cigarettes Passive exposure: Never Smokeless tobacco: Never Vaping Use Vaping status: Never Used Substance and Sexual Activity Alcohol use: No Drug use: No Social Determinants of Health Financial Resource Strain: Low Risk (06/14/2022) Overall Financial Resource Strain (CARDIA) Difficulty of Paying Living Expenses: Not hard at all Food Insecurity: No Food Insecurity (06/14/2022) Hunger Vital Sign Worried About Running Out of Food in the Last Year: Never true Ran Out of Food in the Last Year: Never true Transportation Needs: No Transportation Needs (06/14/2022) PRAPARE - Transportation Lack of Transportation (Medical): No Lack of Transportation (Non-Medical): No Physical Activity: Insufficiently Active (06/14/2022) Exercise Vital Sign Days of Exercise per Week: 2 days Minutes of Exercise per Session: 60 min Stress: Stress Concern Present (08/23/2022) [employer] - Occupational Stress Questionnaire Feeling of Stress : To some extent Social Connections: Socially Isolated (06/14/2022) Social Connection and Isolation Panel [NHANES] Frequency of Communication with Friends and Family: More than three times a week Frequency of Social Gatherings with Friends and Family: More than three times a week Attends Anglican Services: Never Active Member of Clubs or Organizations: No Attends Club or Organization Meetings: Ne (more content not included)... Normal [facility] US RETROPERITONEALon 024 US RETROPERITONEAL Patient Name: ROSEMARY GARCIA : 1985 [facility]#: [id number] Exam Date/Time: 11/28/2023 13:59 Procedure: US RETROPERITONEAL Ordering Provider: HAGAN JOSEPH Reason For Exam: Nephrolithiasis Exam type: Ultrasound retroperitoneum. CLINICAL INDICATION: Nephrolithiasis COMPARISON: None Technique: Grayscale sonographic images were obtained of the kidneys and bladder. Color Doppler was utilized. FINDINGS: Right Kidney: Size: 11.5 x 4.5 x 4.5 cm Renal Parenchyma: Normal echogenicity and cortical thickness. Hydronephrosis: None Renal Calculi: Echogenic focus within the lower pole Left Kidney: Size: 10.4 x 4.4 x 4.0 cm Renal Parenchyma: Normal echogenicity and cortical thickness. Hydronephrosis: None Renal Calculi: Echogenic focus within the lower pole. The bladder is unremarkable. IMPRESSION: Probable bilateral nonobstructing renal calculi Report Dictated on Electronically Signed By: Eb Barrientos MD Electronically Signed Date/Time: 11/30/2023 2:47 PM EDT [facility] 36on 11-25-2023 36 Hello This patient called and was wanting to get her mri lumbar spine scheduled. I was checking on the status of the authorization. Please let me know at your earliest convenience. [facility] 36on 11-23-2023 36 Patient currently in office for appointment. Closing encounter. [facility] 36 Name of caller: Odin Contact phone number: [phone] Chief Complaint/Reason for Call: Patient states that she is running a little late for her [address] Hagan due to traffic from an accident and says she will be there by 12:53. Please advise [facility] Office Visiton 11-23-2023 Follow-up visit [id number] Rosemary Garcia 1985 F Date Provider Department Center 11/23/2023 [id number] HAGAN [facility] URO None Family History Problem Relation Age of Onset Heart attack Mother Heart disease Mother Stroke Mother Other Mother No Known Problems Sister No Known Problems Daughter No Known Problems Son Heart attack Maternal Grandmother No Known Problems Maternal Grandfather No Known Problems Paternal Grandmother No Known Problems Paternal Grandfather Family Status - Relation Status Age at Mother Alive Father Alive Sister Alive Daughter Alive Son Alive Maternal Grandmother Maternal Grandfather Paternal Grandmother Paternal Grandfather Level of Service:21612 [place] OFFICE/OUTPATIENT NEW SF MDM 15 MINUTES Reason for Visit and Comments: New Patient [542] Nephrolithiasis [997986] - Right groin and right upper abdomen Normal [facility] Progress Noteon 11-23-2023 Progress Note Shon Hagan MD UROLOGY INITIAL OFFICE VISIT PATIENT NAME: Rosemary Garcia DATE OF : 1985 TODAY'S DATE: 11/23/2023 Chief Complaint: Chief Complaint Patient presents with New Patient Nephrolithiasis Right groin and right upper abdomen HISTORY OF PRESENT ILLNESS: Ms. Garcia is a 38 y.o. female who presents with ureteral calculus. She went to [place] because of the pain. She has had stones in the past. Pain better now. She might have stones in each kidney. She has not passed anything that she knows of. No nausea or fever REVIEW OF SYSTEMS: Review of Systems 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 Headache Herpes Kidney calculi Kidney stones Myopathy PastSurgical History: Past Surgical History: Procedure Laterality Date CYSTOSCOPY LITHOTRIPSY CurrentMedications: Prior to Admission medications Medication Sig Start Date End Date Taking? Authorizing Provider gabapentin (Neurontin) 100 MG capsule Take 1 capsule (100 mg) by mouth Nightly for 2 days, THEN 1 capsule (100 mg) 3 times daily for 2 days, THEN 2 capsules (200 mg) 3 times daily for 20 days. 11/14/23 12/08/23 Yes Cecilia Cooper, ketorolac (Toradol) 10 MG tablet Take 1 tablet (10 mg) by mouth every 6 hours as needed for moderate pain (4-6). 11/14/23 Yes Cecilia Cooper, loratadine (Claritin) 10 MG tablet TAKE 1 TABLET BY MOUTH ONCE DAILY 08/18/23 Yes Phyllis Cueto PA-C metoprolol tartrate (Lopressor) 25 MG tablet TAKE 1 TABLET BY MOUTH EVERY 8 HOURS NEEDED for palpitations over 100/min 07/18/23 Yes Ralph Tse MD ondansetron ODT (Zofran-ODT) 4 MG disintegrating tablet Take 4 mg by mouth every 8 hours as needed for nausea. 09/27/23 Yes Historical Provider, phenazopyridine (Pyridium) 100 MG tablet Take 100 mg by mouth every 8 hours as needed. 09/27/23 Yes Historical Provider, tamsulosin (Flomax) 0.4 MG 24 hr capsule Take 1 capsule (0.4 mg) by mouth daily. 09/30/23 09/29/24 Yes Deena Chavez MD valACYclovir (Valtrex) 500 MG tablet TAKE 1 TABLET BY MOUTH ONCE DAILY 08/18/23 Yes Phyllis Cueto PA-C buprenorphine-naloxon e (Suboxone) 8-2 MG per sublingual film APPLY 1 FILM SUBLINGUALLY TWICE DAILY 11/19/23 Historical Provider, Allergies: Meperidine and Morphine Social History: Social History Socioeconomic History Marital status: Spouse name: Not on file Number of children: Not on file Years of education: Not on file Highest education level: Not on file Occupational History Not on file Tobacco Use Smoking status: Every Day Current packs/day: 0.50 Types: Cigarettes Passive exposure: Never Smokeless tobacco: Never Vaping Use Vaping status: Never Used Substance and Sexual Activity Alcohol use: No Drug use: No Sexual activity: Not on file Other Topics Concern Not on file Social History Narrative Not on file Social Determinants of Health Financial Resource Strain: Low Risk (06/14/2022) Overall Financial Resource Strain (CARDIA) Difficulty of Paying Living Expenses: Not hard at all Food Insecurity: No Food Insecurity (06/14/2022) Hunger Vital Sign Worried About Running Out of Food in the Last Year: Never true Ran Out of Food in the Last Year: Never true Transportation Needs: No Transportation Needs (06/14/2022) PRAPARE - Transportation Lack of Transportation (Medical): No Lack of Transportation (Non-Medical): No Physical Activity: Insufficiently Active (06/14/2022) Exercise Vital Sign Days of Exercise per Week: 2 days Minutes of Exercise per Session: 60 min Stress: Stress Concern Present (08/23/2022) [employer] - Occupational Stress Questionnaire Feeling of Stress : To some extent Social Connections: Socially Isolated (06/14/2022) Social Connection and Isolation Panel [NHANES] Frequency of Communication with Friends and Family: More than three times a week Frequency of Social Gatherings with Friends and Family: More than three times a week Attends Anglican Services: Never Active Member of Clubs or Organizations: No Attends Club or Organization Meetings: Never Marital Status: Intimate Partner Violence: Not on file Housing Stability: Low Risk (06/14/2022) Housing Stability Vital Sign Unable to Pay for Housing in the Last Year: No Number of Places Lived in the Last Year: 1 Unstable Housing in the Last Year: No Family History: Family History Problem Relation Name Age of Onset Heart attack Mother Heart disease Mother Stroke Mother Other (triple bypass) Mother No Known Problems Sister No Known Problems Daughter No Known Problems Son Heart attack Maternal Grandmother No Known Problems Maternal Grandfather No Known Problems Paternal Grandmother No Known Problems Paternal Grandfather PHYSICAL EXAM: VITALS: BP 115/72 Ht 5' 7 (1.702 m) Wt 159 lb (72.1 kg) BMI 24.90 kg (more content not included)... [facility] 36on 11-03-2023 36 [employer] message sent. [facility] 36 S: Patient spoke gita [facility] nurse regarding treatment for herniated disc B: seen yesterday by Dr Cooper A: Patient asking if it would be ok for her to use a TENS unit and if there is any type of brace or anything else that she can get to help alleviate the pain from the herniated disc R: Message to Provider please advise Reason for Disposition Nursing judgment Protocols used: Information Only Call - No [id number] [facility] Office Visiton 11-02-2023 Follow-up visit [id number] Rosemary Garcia 1985 F Date Provider Department Center 11/02/2023 [id number] COOPER [facility] Family History Problem Relation Age of Onset Heart attack Mother Heart disease Mother Stroke Mother Other Mother No Known Problems Sister No Known Problems Daughter No Known Problems Son Heart attack Maternal Grandmother No Known Problems Maternal Grandfather No Known Problems Paternal Grandmother No Known Problems Paternal Grandfather Family Status - Relation Status Age at Mother Alive Father Alive Sister Alive Daughter Alive Son Alive Maternal Grandmother Maternal Grandfather Paternal Grandmother Paternal Grandfather Level of Service:40912 [place] OFFICE/OUTPATIENT ESTABLISHED LOW [facility] 20 MIN Reason for Visit and Comments: Back Pain [12] - Lower back radiating crushing pressure pain 3-8/10 every time pt twist right or left. X3 wks. Getting worse tylenol not helping but ibuprofen relieves slightly. Normal [facility] PATINSon 11-02-2023 PATINS You can take either diclofenac or Toradol or ibuprofen. Cannot take together as they all have the same mechanism and can really cause issues with gastritis and kidney damage. Normal [facility] Progress Noteon 11-02-2023 Progress Note [facility] [address] [facility] [id number] Visit Type: Same Day PCP: Deena Chavez MD Reason for Visit: Back Pain (Lower back radiating crushing pressure pain 3-8/10 every time pt twist right or left. X3 wks. Getting worse tylenol not helping but ibuprofen relieves slightly. ) Assessment and Plan Odin was seen today for back pain. Diagnoses and all orders for this visit: Lumbar spine pain - XR lumbar spine 2 or 3 views; Future - methylPREDNISolone (Medrol Dospak) 4 MG tablets; Take as directed on package. We discussed that her symptoms sound like a possible herniated disc, but she is fortunately not having any neurologic symptoms suggestive of nerve root compression. Explained xray can help identify any disc space narrowing and suggestion for further investigation. Will do a trial of nsaids (which she has at home) + medrol (which has limited evidence but may be helpful). Advised on gentle stretches and avoiding immobility. Follow up if symptoms worsen or fail to improve. Patient Instructions You can take either diclofenac or Toradol or ibuprofen. Cannot take together as they all have the same mechanism and can really cause issues with gastritis and kidney damage. Subjective HPI H/o kidney stones. Low back pain. For 3 weeks. Progressively worse in the past week Worse with twisting torso, shifting hips, getting out of bed or up from seated. Trying to stretch gently. Pain stays well localized over the lower lumbar spine around L4-5 area. No radiation noted. She has a physically strenuous job. But no episode to cause symptom. Aspirin and tylenol don't help. Ibuprofen helps a bit. Laying flat makes the pain feel better. H/o herniated disc as a teen. Bilat hip pain associated. But no shooting pain down her legs. Not similar to kidney stone pain. Taking flexeril at night. Cannot take during the day. Review of Systems Pertinent ROS noted in the HPI and all other systems are negative. Current Outpatient Medications Medication Sig Dispense Refill diclofenac (Voltaren) 75 MG EC tablet Take 1 tablet (75 mg) by mouth 2 times daily as needed (pain). Do not crush, chew, or split. 30 tablet 0 ketorolac (Toradol) 10 MG tablet Take 1 tablet by mouth every 6 hours as needed. loratadine (Claritin) 10 MG tablet TAKE 1 TABLET BY MOUTH ONCE DAILY 90 tablet 3 metoprolol tartrate (Lopressor) 25 MG tablet TAKE 1 TABLET BY MOUTH EVERY 8 HOURS NEEDED for palpitations over 100/min 270 tablet 3 ondansetron ODT (Zofran-ODT) 4 MG disintegrating tablet Take 4 mg by mouth every 8 hours as needed for nausea. phenazopyridine (Pyridium) 100 MG tablet Take 100 mg by mouth every 8 hours as needed. tamsulosin (Flomax) 0.4 MG 24 hr capsule Take 1 capsule (0.4 mg) by mouth daily. 30 capsule 0 valACYclovir (Valtrex) 500 MG tablet TAKE 1 TABLET BY MOUTH ONCE DAILY 90 tablet 3 methylPREDNISolone (Medrol Dospak) 4 MG tablets Take as directed on package. 21 tablet 0 No current facility-administered medications for this visit. Patient Active Problem List Diagnosis Date Noted Seasonal allergies 10/12/2022 History of congestive heart failure 06/14/2022 Anxiety 06/14/2022 Attention deficit hyperactivity disorder (ADHD), predominantly inattentive type 06/14/2022 HSV-1 (herpes simplex virus 1) infection 06/02/2020 IUD (intrauterine device) in place 06/02/2020 Objective BP 108/67 (BP Location: Left arm, Patient Position: Sitting, BP Cuff Size: Adult) Pulse 70 Ht 5' 7 (1.702 m) Wt 163 lb (73.9 kg) SpO2 96% BMI 25.53 kg/m? Physical Exam Gen: uncomfortable appearing, but otherwise no distress Msk: localized pain to the L4-5 midline and paraspinals. But no induced pain with SLR . Slow to rise from a seated position. There are no discontinued medications. Cecilia Allison, DO 11/02/2023 3:57 PM Normal [facility] 36on 11-01-2023 36 S: Patient spoke wit h [facility] nurse regarding low back pain. B: Onset of symptoms/concern began about 3 weeks ago. A: Patient thinks she pinched a nerve in her low back or may have a disc problem. Recently had 3 kidney stones with vomiting and a lot of pain. Does not know if she could have injured it then as the pain started after that. 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 The pain is rated as a 2-3/10 that is constant, but can shoot up to a 7-8/10 with twisting or other movements. States she wants to be evaluated for a disc injury. No numbness, tingling, or weakness in extremities. No shooting pain into legs. No bowel or bladder concerns. R: Appt made with Dr. Cooper for 11/01 at 2:40p. Insurance verified with patient as [employer]. Advised patient to bring photo ID, insurance card, and arrive 10 minutes early to appointment. No further needs at this time. Patient instructed to call back with new or worsening symptoms. Reason for Disposition MODERATE back pain (e.g., interferes with normal activities) and present > 3 days Protocols used: Back [id number] Normal [facility] XR ABDOMEN 1 VIEWon 10-19-19 XR ABDOMEN 1 VIEW FINDINGS: Renal shadows and the course of both ureters above the pelvic brim are obscured by large volume of stool throughout the colon. No distal ureteral or bladder stones are seen. Bowel gas pattern is otherwise unremarkable. IUD noted. IMPRESSION: Obscured renal shadows TRANSCRIBED BY: ELECTRONICALLY SIGNED BY: Shon Tenorio MD Normal Not Available 10-03-2023 36 Spoke with pt. Scheduled first available on 11/23/[address] Hagan. Normal [facility] 36on 09-30-2023 36 See previous encounters S: Patient spoke with [facility] nurse regarding pain from kidney stones B: Onset of symptoms/concern 09/29/23 A: States they wanted to clarify they were not asking for narcotics and will not be seeking drugs from friends. They want to clarify what they meant. Patient states they were going to search for a natural remedy. Patient states they will be utilizing stinging nettle root for the sharp pain. States if pain become constant at severe level, if they are unable to urinate or have benja blood in urine they will go to ED. Patient states they were previously given ultram for kidney stones and did not realize that Ultram is now considered a narcotic. R: Patient understands care advice to call back if pain worsens, if develops a fever, hematuria, anuria or with further concerns or questions. No further needs at this time. Patient instructed to call back with new or worsening symptoms. [facility] 36 Duplicate Reason for Disposition Caller has already spoken with another triager or PCP (or office), and has further questions and triager able to answer questions. Protocols used: No Contact or Duplicate Contact [id number] [facility] 36 S: Patient spoke gita [facility] nurse regarding pt in a lot of pain from kidney stone B: Onset of symptoms/concern has gotten worse through out the night. A: The patient was Dx with 3 kidney stones at the ED on 09/28/23, 2 days ago, and has passed one. Pain is all along right side, right back and hip. Feels like it is wrapping around the body into the groin. C/o hematuria, (a little bit seen in urine,) and pain shooting into groin and down leg. 6-11/22 but describes it as severe. Feels sweaty but does not feel like passing out. Feels hot and cold but does not have a thermometer. Was nauseated this morning but is better now, since took Zofran and ate some yogurt and plans on taking the Voltaren in a few minutes. Denies . The patient is asking for pain medication. Allergic to Morphine and Meperidine uses [facility] [phone]. R: Call placed to the office for a secondary triage with Dr Chavez. The LIEUTENANT GOVERNOR, Emmy Chino advised that the patient go back to the ED because the stone might be lodged in the ureter. The patient started to cry and states she won't go back to the ED because they didn't do much for her. Strongly advised her to go to the ED but the patient continued to refuse, stating she will try to find some pain pills, and she will deal with this at home. Reiterated the need to go to the ED in the case that she was unable to pass the stone, continues to refuse. She states if the pain gets worse she will go to the ED but not now. Patient understands care advice. No further needs at this time. Reason for Disposition [1] SEVERE pain (e.g., excruciating, scale 8-10) AND [2] not improved after pain medicine Protocols used: Kidney Stone [facility]on 09-[facility]-2023 36 Name of Caller: Odin Contact Reason for Appointment: Patient called to schedule a new patient appointment. She has a referral in the system for kidney stones. Please advise Office Name: Urology Medication Refills need, if any: n/a Medication Name: n/a [facility] Office Visiton 09-29-2023 Follow-up visit [id number] Deena Garciajason Liz 1985 F Date Provider Department Center 09/29/2023 [id number] CHAVEZ [facility] Family History Problem Relation Age of Onset Heart attack Mother Heart disease Mother Stroke Mother Other Mother No Known Problems Sister No Known Problems Daughter No Known Problems Son Heart attack Maternal Grandmother No Known Problems Maternal Grandfather No Known Problems Paternal Grandmother No Known Problems Paternal Grandfather Family Status - Relation Status Age at Mother Alive Father Alive Sister Alive Daughter Alive Son Alive Maternal Grandmother Maternal Grandfather Paternal Grandmother Paternal Grandfather Level of Service:70817 [place] OFFICE/OUTPATIENT ESTABLISHED LOW MDM 20 MIN Reason for Visit and Comments: ER Follow-up [831] - (See nurse triage encounter dated today.) She is quite clammy, and she feels she got too dehydrated. [facility] Progress Noteon 09-29-2023 Progress Note Subjective Patient ID: Odin Garcia is a 37 y.o. female who presents for ER Follow-up ((See nurse triage encounter dated today.) She is quite clammy, and she feels she got too dehydrated.). This is the 20th stone. Had one in the bladder. Had blood in the urine. Having right side pain now. Still has the blood in the urine. Had lithotripsy in the past. Last one was 12 years ago. Does not have a urologist. Review of Systems Constitutional: Negative for chills and fever. Gastrointestinal: Positive for diarrhea and nausea. Negative for blood in stool. Stop the antibiotic to help the diarrhea Genitourinary: Positive for dysuria, flank pain and hematuria. No evidence of infection. Is on Macrobid Objective Physical Exam Vitals and nursing note reviewed. Constitutional: General: She is not in acute distress. Appearance: She is ill-appearing. She is not toxic-appearing. Comments: Her skin is very clammy to touch Eyes: General: No scleral icterus. Cardiovascular: Rate and Rhythm: Normal rate and regular rhythm. Pulses: Normal pulses. Heart sounds: Normal heart sounds. No murmur heard. Pulmonary: Effort: Pulmonary effort is normal. Breath sounds: Normal breath sounds. Abdominal: Tenderness: There is abdominal tenderness. There is right CVA tenderness. Skin: Coloration: Skin is not jaundiced or pale. Neurological: Mental Status: She is alert. Assessment/Plan Problem List Items Addressed This Visit None Visit Diagnoses Kidney stone on right side - Primary Acute on chronic, uncontrolled Does not want to take narcotics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 distress and is well-hydrated. Vital signs noted. There is tenderness of the left maxillary sinus. Examination of the ears and nose is normal. Throat exam reveals pharyngeal erythema without swelling or exudate. There is a tender left-sided anterior cervical lymph node. Lung exam is normal. Signatures Electronically signed by : Gregory Summers MD; Mar 02 2021 1:29PM EST (Author) Normal [employer] Tobacco Screening.on 021 Fall risk assessment a) No falls within the last year [facility] Work Phone: Tobacco use status CPHS a) Yes [facility] Work Phone: Tobacco Screening. Yes [facility] Work Phone: CR Foot Complete 3+ Views Le fton 10-23-2019 CR Foot Complete 3+ Views Left Patient Name: ROSEMARY GARCIA Diagnostic Radiology Exam Date/Time 10/23/2019 12:53:04 EDT Exam CR Foot Complete 3+ Views Left Ordering Physician MD YONNY, DYANA Pandey Accession Number [id number] CPT4 Codes 08679 () Reason For Exam pain and deformity of 5th toe Report LEFT FOOT: CLINICAL INDICATION: Pain and deformity left fifth toe. TECHNIQUE: AP, Lat, Oblique COMPARISON: None. FINDINGS: There is comminuted fracture of the proximal phalanx of the fifth toe. Bone mineralization appears normal. No other fracture is seen. IMPRESSION: 1. Comminuted fracture of the proximal phalanx of the fifth toe. Report Dictated on Final Dictating Physician: MD RAMIREZ GEORGE RICHARD Signed Date and Time: 10/23/2019 12:59 pm Signed by: MD RAMIREZ GEORGE RICHARD Transcribed Date and Time: 10/23/2019 1:00 Normal [facility] (MIN 3 VIEWS)on 10-23-2019 Patient Name: ROSEMARY GARCIA ---Diagnostic Radiology--- Exam Date/Time 10/23/2019 12:53:04 EDT Exam CR Foot Complete 3+ Views Left Ordering Physician MD POLO DAVID L Accession Number [id number] CPT4 Codes 93236 () Reason For Exam pain and deformity of 5th toe Report LEFT FOOT: CLINICAL INDICATION: Pain and deformity left fifth toe. TECHNIQUE: AP, Lat, Oblique COMPARISON: None. FINDINGS: There is comminuted fracture of the proximal phalanx of the fifth toe. Bone mineralization appears normal. No other fracture is seen. IMPRESSION: 1. Comminuted fracture of the proximal phalanx of the fifth toe. Report Dictated on --- Final --- Dictating Physician: MD RAMIREZ GEORGE RICHARD Signed Date and Time: 10/23/2019 12:59 pm Signed by: MD RAMIREZ GEORGE RICHARD Transcribed Date and Time: 10/23/2019 1:00 [facility] [place], [place] [facility] Incoming Radiology Results From [facility] - 10/23/2019 1:00 PM EDT Patient Name: ROSEMARY GARCIA ---Diagnostic Radiology--- Exam Date/Time 10/23/2019 12:53:04 EDT Exam CR Foot Complete 3+ Views Left Ordering Physician MD POLO DAVID L Accession Number [id number] CPT4 Codes 66629 () Reason For Exam pain and deformity of 5th toe Report LEFT FOOT: CLINICAL INDICATION: Pain and deformity left fifth toe. TECHNIQUE: AP, Lat, Oblique COMPARISON: None. FINDINGS: There is comminuted fracture of the proximal phalanx of the fifth toe. Bone mineralization appears normal. No other fracture is seen. IMPRESSION: 1. Comminuted fracture of the proximal phalanx of the fifth toe. Report Dictated on --- Final --- Dictating Physician: MD RAMIREZ GEORGE RICHARD Signed Date and Time: 10/23/2019 12:59 pm Signed by: MD RAMIREZ GEORGE RICHARD Transcribed Date and Time: 10/23/2019 1:00 [facility] [place], [place] GC + CHLAMYDIA BY AMPLIFIED DETECTIONon 12-28-2018 CHLAMYDIA TRACH.,AMPLIFIED Negative Normal NEGATIVE [facility] Comment on above: Result Comment: Perf ormance characteristics for Chlamydia trachomatis testing on female urine samples has been validated by [facility]. Testing on this sample type is not FDA-approved, but such approval is not necessary. This laboratory is certified by CLIA to perform high complexity testing. Performed By: #### G [facility] #### [facility] [address] [place] [address] N.GONORRHEA,AMPLIFIE D Negative Normal NEGATIVE [facility] Comment on above: Result Comment: Perf ormance characteristics for Neisseria gonorrhoeae testing on female urine samples has been validated by [facility]. Testing on this sample type is not FDA-approved, but such approval is not necessary. This laboratory is certified by CLIA to perform high complexity testing. Performed By: #### G [facility] #### [facility] [address] [place] [address] GC + CHLAMYDIA BY AMPLIFIED DETECTIONon 12-27-2018 Lab Specimen Source Urine Normal [facility] Comment on above: Performed By: #### G [facility] #### [facility] [address] [place] [address] GC + Chlamydia By Amplified Detectionon 12-27-2018 C. trachomatis rRNA JOSE ELIAS+probe Ql (Unsp spec) Negative NEGATIVE [facility] Work Phone: Comment on above: Performance characte ristics for Chlamydia trachomatis testing on female urine samples has been validated by [facility]. Testing on this sample type is not FDA-approved, but such approval is not necessary. This laboratory is certified by CLIA to perform high complexity testing. N. gonorrhoeae rRNA JOSE ELIAS+probe Ql (Unsp spec) Negative NEGATIVE [facility] Work Phone: Comment on above: SOURCE: UrinePerform ance characteristics for Neisseria gonorrhoeae testing on female urine samples has been validated by [facility]. Testing on this sample type is not FDA-approved, but such approval is not necessary. This laboratory is certified by CLIA to perform high complexity testing. Vital Signs Date Time Vital Sign Value Performing Clinician Facility 02-15-2024 11:49-0400 Body height 170.2 cm Deena Chavez MD Work Phone: [facility] 02-15-2024 11:49-0400 Body mass index (BMI) [Ratio] 24.59 kg/m2 Deena Chavez MD Work Phone: [facility] 02-15-2024 11:49-0400 Body weight 71.22 kg Deena Chavez MD Work Phone: [facility] 02-15-2024 11:49-0400 Diastolic blood pressure 80 mm[Hg] Deena Chavez MD Work Phone: [facility] 02-15-2024 11:49-0400 Heart rate 99 /min Deena Chavez MD Work Phone: [facility] 02-15-2024 11:49-0400 SaO2% (BldA) [Mass fraction] 99 % Deena Chavez MD Work Phone: [facility] 02-15-2024 11:49-0400 Systolic blood pressure 122 mm[Hg] Deena Chavez MD Work Phone: [facility] 12-27-2023 03:43-0400 Diastolic blood pressure 75 mm[Hg] Last Scales MD Work Phone: [facility] 12-27-2023 03:43-0400 Systolic blood pressure 113 mm[Hg] Last Scales MD Work Phone: [facility] 12-27-2023 00:29-0400 Body temperature 97.9 [degF] Last Scales MD Work Phone: [facility] [place] [facility] 12-27-2023 00:29-0400 Heart rate 88 /min Last Scales MD Work Phone: [facility] [place] [facility] 12-27-2023 00:29-0400 Respiratory rate 20 /min Last Scales MD Work Phone: [facility] [place] [facility] 12-27-2023 00:29-0400 SaO2% (BldA) [Mass fraction] 100 % Last Scales MD Work Phone: [facility] [place] [facility] 12-01-2023 21:17-0400 Body temperature 98.8 [degF] Renetta Chapin MD Work Phone: [facility] [place] [facility] 12-01-2023 21:17-0400 Diastolic blood pressure 115 mm[Hg] Renetta Chapin MD Work Phone: [facility] [place] [facility] 12-01-2023 21:17-0400 Heart rate 112 /min Renetta Chapin MD Work Phone: [facility] [place] [facility] 12-01-2023 21:17-0400 Respiratory rate 20 /min Renetta Chapin MD Work Phone: [facility] [place] [facility] 12-01-2023 21:17-0400 SaO2% (BldA) [Mass fraction] 98 % Renetta Chapin MD Work Phone: [facility] [place] [facility] 12-01-2023 21:17-0400 Systolic blood pressure 140 mm[Hg] Renetta Chapin MD Work Phone: [facility] [place] [facility] 11-23-2023 13:07-0400 Body height 170.2 cm Shon Hagan MD Work Phone: [facility] [place] [facility] 11-23-2023 13:07-0400 Body mass index (BMI) [Ratio] 24.9 kg/m2 Shon Hagan MD Work Phone: [facility] [place] [facility] 11-23-2023 13:07-0400 Body weight 72.12 kg Shon Hagan MD Work Phone: [facility] [place] [facility] 11-23-2023 13:07-0400 Diastolic blood pressure 72 mm[Hg] Shon Hagan MD Work Phone: [facility] [place] [facility] 11-23-2023 13:07-0400 Systolic blood pressure 115 mm[Hg] Shon Hagan MD Work Phone: [facility] [place] [facility] 11-02-2023 14:51-0400 Body height 170.2 cm Cecilia Cooper DO Work Phone: [facility] [place] [facility] 11-02-2023 14:51-0400 Body mass index (BMI) [Ratio] 25.53 kg/m2 Cecilia Cooper DO Work Phone: [facility] [place] [facility] 11-02-2023 14:51-0400 Body weight 73.94 kg Cecilia Cooper DO Work Phone: [facility] [place] [facility] 11-02-2023 14:51-0400 Diastolic blood pressure 67 mm[Hg] Cecilia Cooper DO Work Phone: [facility] [place] [facility] 11-02-2023 14:51-0400 Heart rate 70 /min Cecilia Cooper DO Work Phone: [facility] [place] [facility] 11-02-2023 14:51-0400 SaO2% (BldA) [Mass fraction] 96 % Cecilia Cooper DO Work Phone: [facility] [place] [facility] 11-02-2023 14:51-0400 Systolic blood pressure 108 mm[Hg] Cecilia Cooper DO Work Phone: [facility] [place] [facility] 09-29-2023 14:33-0400 Body height 170.2 cm Deena Chavez MD Work Phone: [facility] [place] [facility] 09-29-2023 14:33-0400 Body mass index (BMI) [Ratio] 25.84 kg/m2 Deena Chavez MD Work Phone: [facility] [place] [facility] 09-29-2023 14:33-0400 Body temperature 98.8 [degF] Deena Chavez MD Work Phone: [facility] [place] [facility] 09-29-2023 14:33-0400 Body weight 74.84 kg Deena Chavez MD Work Phone: [facility] [place] [facility] 09-29-2023 14:33-0400 Diastolic blood pressure 76 mm[Hg] Deena Chavez MD Work Phone: [facility] [place] [facility] 09-29-2023 14:33-0400 Heart rate 102 /min Deena Chavez MD Work Phone: [facility] 09-29-2023 14:33-0400 SaO2% (BldA) [Mass fraction] 98 % Deena Chavez MD Work Phone: [facility] 09-29-2023 14:33-0400 Systolic blood pressure 113 mm[Hg] Deena Chavez MD Work Phone: [facility] 09-20-2023 11:35-0400 Body mass index (BMI) [Ratio] 25.15 kg/m2 Rosemary Range DICER MACHINE OPERATOR.COLLECTION SYSTEMS TECHNICIAN Work Phone: [facility] 09-20-2023 11:35-0400 Body temperature 98.2 [degF] Rosemary Range DICER MACHINE OPERATOR.COLLECTION SYSTEMS TECHNICIAN Work Phone: [facility] 09-20-2023 11:35-0400 Body weight 75 kg Rosemary Range DICER MACHINE OPERATOR.COLLECTION SYSTEMS TECHNICIAN Work Phone: [facility] 09-20-2023 11:35-0400 Diastolic blood pressure 77 mm[Hg] Rosemary Range DICER MACHINE OPERATOR.COLLECTION SYSTEMS TECHNICIAN Work Phone: [facility] 09-20-2023 11:35-0400 Heart rate 83 /min Rosemary Range DICER MACHINE OPERATOR.COLLECTION SYSTEMS TECHNICIAN Work Phone: [facility] 09-20-2023 11:35-0400 SaO2% (BldA) [Mass fraction] 96 % Rosemary Range DICER MACHINE OPERATOR.COLLECTION SYSTEMS TECHNICIAN Work Phone: [facility] 09-20-2023 11:35-0400 Systolic blood pressure 117 mm[Hg] Rosemary Range DICER MACHINE OPERATOR.COLLECTION SYSTEMS TECHNICIAN Work Phone: [facility] 07-18-2023 13:08-0500 Body height 172.7 cm Ralph Tse MD Work Phone: [facility] 07-18-2023 13:08-0500 Body mass index (BMI) [Ratio] 25.73 kg/m2 Ralph Tse MD Work Phone: [facility] 07-18-2023 13:08-0500 Body weight 76.75 kg Ralph Tse MD Work Phone: [facility] [place] [facility] 07-18-2023 13:08-0500 Diastolic blood pressure 72 mm[Hg] Ralph Tse MD Work Phone: [facility] [place] [facility] 07-18-2023 13:08-0500 Heart rate 62 /min Ralph Tse MD Work Phone: [facility] [place] [facility] 07-18-2023 13:08-0500 Systolic blood pressure 114 mm[Hg] Ralph Tse MD Work Phone: [facility] [place] [facility] 12-27-2022 13:04-0400 Body height 172.7 cm Ralph Tse MD Work Phone: [facility] [place] [facility] 12-27-2022 13:04-0400 Body mass index (BMI) [Ratio] 24.33 kg/m2 Ralph Tse MD Work Phone: [facility] [place] [facility] 12-27-2022 13:04-0400 Body weight 72.58 kg Ralph Tse MD Work Phone: [facility] [place] [facility] 12-27-2022 13:04-0400 Diastolic blood pressure 60 mm[Hg] Ralph Tse MD Work Phone: [facility] [place] [facility] 12-27-2022 13:04-0400 Heart rate 80 /min Ralph Tse MD Work Phone: [facility] [place] [facility] 12-27-2022 13:04-0400 Respiratory rate 16 /min Ralph Tse MD Work Phone: [facility] [place] [facility] 12-27-2022 13:04-0400 Systolic blood pressure 100 mm[Hg] Ralph Tse MD Work Phone: [facility] [place] [facility] 10-12-2022 10:31-0400 Body height 172.7 cm Phyllis Cueto PA-C Work Phone: [facility] [place] [facility] 10-12-2022 10:31-0400 Body mass index (BMI) [Ratio] 22.96 kg/m2 Phyllis Cueto PA-C Work Phone: [facility] [place] [facility] 10-12-2022 10:31-0400 Body weight 68.49 kg Phyllis Nyeon PA-C Work Phone: [facility] [place] [facility] 10-12-2022 10:31-0400 Diastolic blood pressure 65 mm[Hg] Phyllis Nyeon PA-C Work Phone: [facility] [place] [facility] 10-12-2022 10:31-0400 Heart rate 77 /min Phyllis Nyeon PA-C Work Phone: [facility] [place] [facility] 10-12-2022 10:31-0400 SaO2% (BldA) [Mass fraction] 97 % Phyllis Nyeon PA-C Work Phone: [facility] 10-12-2022 10:31-0400 Systolic blood pressure 104 mm[Hg] Phyllis Nyeon PA-C Work Phone: [facility] 08-23-2022 11:04-0400 Body height 172.7 cm Phyllis Nyeon PA-C Work Phone: [facility] [place] [facility] 08-23-2022 11:04-0400 Body mass index (BMI) [Ratio] 22.81 kg/m2 Phyllis Nyeon PA-C Work Phone: [facility] [place] [facility] 08-23-2022 11:04-0400 Body weight 68.04 kg Phyllis Nyeon PA-C Work Phone: [facility] [place] [facility] 08-16-2022 11:41-0400 Body height 172.7 cm Ralph Tse MD Work Phone: [facility] 08-16-2022 11:41-0400 Body mass index (BMI) [Ratio] 23.11 kg/m2 Ralph Tse MD Work Phone: [facility] 08-16-2022 11:41-0400 Body weight 68.95 kg Ralph Tse MD Work Phone: [facility] 08-16-2022 11:41-0400 Diastolic blood pressure 80 mm[Hg] Ralph Tse MD Work Phone: [facility] 08-16-2022 11:41-0400 Heart rate 97 /min Ralph Tse MD Work Phone: [facility] 08-16-2022 11:41-0400 Respiratory rate 16 /min Ralph Tse MD Work Phone: [facility] 08-16-2022 11:41-0400 Systolic blood pressure 114 mm[Hg] Ralph Tse MD Work Phone: [facility] 08-11-2021 14:46-0400 Diastolic blood pressure 69 mm[Hg] Barrington Colon MD Work Phone: [facility] 08-11-2021 14:46-0400 Heart rate 77 /min Barrington Colon MD Work Phone: [facility] 08-11-2021 14:46-0400 Respiratory rate 16 /min Barrington Colon MD Work Phone: [facility] 08-11-2021 14:46-0400 SaO2% (BldA) [Mass fraction] 99 % Barrington Colon MD Work Phone: [facility] 08-11-2021 14:46-0400 Systolic blood pressure 101 mm[Hg] Barrington Colon MD Work Phone: [facility] 08-11-2021 13:28-0400 Body height 172.7 cm Barrington Colon MD Work Phone: [facility] 08-11-2021 13:28-0400 Body mass index (BMI) [Ratio] 24.33 kg/m2 Barrington Colon MD Work Phone: [facility] 08-11-2021 13:28-0400 Body temperature 98.8 [degF] Barrington Colon MD Work Phone: [facility] 08-11-2021 13:28-0400 Body weight 72.58 kg Barrington Cooln MD Work Phone: [facility] 03-02-2021 13:16-0400 Body height 172.72 cm Referring Provider Unknown [facility] Work Phone: 03-02-2021 13:16-0400 Body mass index (BMI) [Ratio] 25.74 kg/m2 Referring Provider Unknown [facility] Work Phone: 03-02-2021 13:16-0400 Body surface area Derived from formula 1.9 m2 Referring Provider Unknown [facility] Work Phone: 03-02-2021 13:16-0400 Body temperature 97.7 [degF] Referring Provider Unknown [facility] Work Phone: 03-02-2021 13:16-0400 Body weight 76.8 kg Referring Provider Unknown [facility] Work Phone: 03-02-2021 13:16-0400 Diastolic blood pressure 71 mm[Hg] Referring Provider Unknown [facility] Work Phone: 03-02-2021 13:16-0400 Heart rate 74 /min Referring Provider Unknown [facility] Work Phone: 03-02-2021 13:16-0400 Respiratory rate 16 /min Referring Provider Unknown [facility] Work Phone: 03-02-2021 13:16-0400 SaO2% (BldA) [Mass fraction] 98 % Referring Provider Unknown [facility] Work Phone: 03-02-2021 13:16-0400 Systolic blood pressure 106 mm[Hg] Referring Provider Unknown [facility] Work Phone: 10-23-2019 14:11-0400 Respiratory Rate 14 /min Dyana [facility], [place] 10-23-2019 12:31-0400 BMI (Body Mass Index) 20.06 kg/m2 Dyana [facility], [place] 10-23-2019 12:31-0400 Body Temperature 98.4 [degF] Dyana [facility] 10-23-2019 12:31-0400 Body weight 58.97 kg Dyana [facility] , [place] 10-23-2019 12:31-0400 BP Diastolic 80 mm[Hg] Dyana Polo [facility] [place] , [place] 10-23-2019 12:31-0400 BP Systolic 123 mm[Hg] Dyana Polo [facility] [place] 10-23-2019 12:31-0400 Pulse (Heart Rate) 89 /min Dyana Polo [facility] [place] 10-23-2019 12:31-0400 Pulse Oximetry 100 % Dyana Polo [facility] [place] 12-27-2018 18:11-0400 BMI (Body Mass Index) 22.05 kg/m2 [facility] Work Phone: 12-27-2018 18:11-0400 Body Temperature 98.1 [degF] Gregory Summers [facility] Work Phone: 12-27-2018 18:11-0400 Body weight 65.77 kg Gregory Summers [facility] Work Phone: 12-27-2018 18:11-0400 BP Diastolic 76 mm[Hg] Gregory Summers [facility] Work Phone: 12-27-2018 18:11-0400 BP Systolic 118 mm[Hg] Gregory Summers [facility] Work Phone: 12-27-2018 18:11-0400 BSA (Body Surface Area) 1.78 m2 Gregory Summers [facility] Work Phone: 12-27-2018 18:11-0400 Height 172.72 cm Gregory Summers [facility] Work Phone: 12-27-2018 18:11-0400 Pulse (Heart Rate) 105 /min Gregory Summers [facility] Work Phone: 12-27-2018 18:11-0400 Pulse Oximetry 98 % Gregory Summers [facility] Work Phone: 12-27-2018 18:11-0400 Respiratory Rate 14 /min Gregory Kristopher [facility] Work Phone: 12-27-2018 18:11-0400 0 1 Gregory Lathamgers [facility] Work Phone: Comment on above: Pain Scale Encounters Encounter Date Encounter Type Care Provider Facility Start: 02-15-2024 End: [facility] Start: 02-15-2024 End: 02-15-2024 Office outpatient visit 15 minutes Deena Chavez MD Work Phone: [facility] Comment on above: Lumbar spine pain (P rimary Dx) Start: 01-17-2024 End: 01-17-2024 Refill Ralph Tse MD Work Phone: [facility] Start: 01-17-2024 End: 01-18-2024 Refill Cecilia Cooper DO Work Phone: [facility] Start: 01-05-2024 End: 01-05-2024 Telephone encounter Deena Chavez MD Work Phone: [facility] Comment on above: Referral (ENT referr al ) Start: 01-04-2024 End: 01-04-2024 Orders Only Deena Chavez MD Work Phone: [facility] Comment on above: Tinea corporis Start: 12-27-2023 End: 12-27-2023 Orders Only Deena Chavez MD Work Phone: [facility] Comment on above: Tinea corporis (Prim johnnie Dx) Start: 12-27-2023 End: 12-27-2023 [facility] Start: 12-27-2023 End: 12-27-2023 Subsequent hospital visit by physician [facility] Exam Room 1 [facility] Comment on above: Arrived Start: 12-27-2023 End: 12-27-2023 Emergency department patient visit Last Scales MD Work Phone: [facility] ED Comment on above: Left flank pain (Susie shay Dx); Left lower quadrant abdominal pain Start: 12-15-2023 End: 12-16-2023 Refill Cecilia Cooper DO Work Phone: [facility] Start: 12-13-2023 End: 12-13-2023 Subsequent hospital visit by physician Cecilia Cooper DO Work Phone: [facility] MRI Comment on above: Lumbar spine pain Start: 12-13-2023 End: 12-13-20[facility] Start: 12-01-2023 End: 12-01-2023 Emergency department patient visit Renetta Chapin MD Work Phone: [facility] ED Comment on above: Acute left-sided low back pain with left-sided sciatica (Primary Dx) Start: 11-28-2023 End: 11-28-2023 ambulatory CATAWBA HESHAMYOLA [facility] Start: 11-28-2023 End: 11-28-2023 Subsequent hospital visit by physician Shon Hagan MD Work Phone: [facility] Comment on above: Calculus, kidney Start: 11-25-2023 End: 12-20-2023 Telephone encounter Cecilia Cooper DO Work Phone: [facility] Central Scheduling Start: 11-23-2023 End: 11-23-2023 ambulatory [facility] Start: 11-23-2023 End: 11-23-2023 Office outpatient new 20 minutes Shon Hagan MD Work Phone: [facility] Comment on above: Kidney stone on righ t side Start: 11-02-2023 End: 11-02-2023 ambulatory CECILIA COOPER [facility] Start: 11-02-2023 End: 11-02-2023 Subsequent hospital visit by physician Cecilia Cooper DO Work Phone: [facility] Comment on above: Lumbar spine pain Start: 11-02-2023 End: 11-02-2023 [facility] Start: 11-02-2023 End: 11-02-2023 Office outpatient visit 15 minutes Cecilia Cooper Work Phone: [facility] Comment on above: Lumbar spine pain (P rimary Dx) Start: 11-01-2023 End: 11-01-2023 ambulatory Kindra Green RN [facility] Clinical Communication Start: 11-01-2023 End: 11-01-2023 Patient encounter procedure Kindra Green RN [facility] Clinical Communication Start: 10-19-2023 End: 10-19-2023 ambulatory DIANA DORADO Not Available Start: 09-30-2023 ambulatory Snehal Nina RN [facility] Clinical Communication Start: 09-30-2023 Patient encounter procedure Snehal Nina RN [facility] Clinical Communication Comment on above: Kidney stone on righ t side (Primary Dx) Start: 09-30-2023 Telephone encounter Michelle Barnes [facility] Clinical Communication Start: 09-29-2023 End: 09-29-2023 [facility] Start: 09-29-2023 End: 09-29-2023 Office outpatient visit 15 minutes Deena Chavez MD Work Phone: [facility] Comment on above: Kidney stone on righ t side (Primary Dx) Start: 09-29-2023 Telephone encounter Hua carroll MD Work Phone: [facility] Comment on above: Appointment Start: 09-27-2023 Telephone encounter Hua Kelley MD Work Phone: Obstetrics/Gynecology Comment on above: Patient Question Start: 09-21-2023 Telephone encounter Roxi Tom PA-C Work Phone: [facility] Comment on above: Results; Medication Problem Results Start: 09-20-2023 End: 09-20-2023 ambulatory CARMEL MARROQUIN Facility:[facility] Start: 09-20-2023 End: 09-20-2023 Patient encounter procedure Rosemary Hall COLLECTION SYSTEMS TECHNICIAN Work Phone: [facility] Comment on above: Dysuria (Primary Dx) Start: 08-18-2023 Refill Phyllis Cueto PA-C Work Phone: [facility] Comment on above: 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; Seasonal allergies Start: 07-18-2023 End: 07-18-2023 ambulatory RALPH ATTILA [facility] Start: 07-18-2023 End: 07-18-2023 Office outpatient visit 15 minutes Ralph Tse MD Work Phone: [facility] Comment on above: History of congestiv e heart failure (Primary Dx); Attention deficit hyperactivity disorder (ADHD), predominantly inattentive type; Anxiety; Palpitations Start: 06-07-2023 Refill Ralph sahu MD Work Phone: [facility] Start: 12-27-2022 End: 12-27-2022 Office outpatient visit 15 minutes Ralph Tse MD Work Phone: [facility] Comment on above: History of congestiv e heart failure (Primary Dx); Palpitations Start: 10-12-2022 End: 10-12-2022 Office outpatient visit 25 minutes Phyllis HAWKINS-C Work Phone: [facility] Comment on above: Attention deficit hy peractivity disorder (ADHD), predominantly inattentive type (Primary Dx); Anxiety; Seasonal allergies Start: 08-23-2022 End: 08-23-2022 Office outpatient visit 25 minutes Phylliswillie Cueto PA-C Work Phone: [facility] Comment on above: Attention deficit hy peractivity disorder (ADHD), predominantly inattentive type (Primary Dx); Anxiety; Seasonal allergies Start: 08-16-2022 End: 08-16-2022 Office outpatient visit 15 minutes Ralph Tse MD Work Phone: [facility] Comment on above: PVC (premature ventr icular contraction); Anxiety; History of congestive heart failure; Shortness of breath; Palpitations; Chest pain, unspecified type Start: 12-30-2021 Refill Hua montenegro MD Work Phone: Obstetrics/Gynecology Comment on above: Refill Request Start: 08-11-2021 End: 08-11-2021 Emergency department patient visit Barrington Colon MD Work Phone: [facility] Comment on above: Lumbar sprain, initi al encounter (Primary Dx) Start: 03-02-2021 Office outpatient vi sit 15 minutes Referring Provider Unknown [facility] Work Phone: Start: 10-23-2019 End: 10-23-2019 Emergency department patient visit Dyana Polo Work Phone: [facility] Comment on above: Closed fracture of p halanx of left fifth toe, initial encounter (Primary Dx) Start: 02-06-2017 Ambulatory UNKNOWN PROVIDER [facility] Procedures Date Procedure Procedure Detail Performing Clinician Start: 12-27-2023 Ct abdomen & pelvis w/o contrast material Last Scales MD Work Phone: Start: 12-27-2023 Urinalysis complete panel - Urine Last Scales MD Work Phone: Start: 12-27-2023 Urnls dip stick/tabl et rgnt auto w/o microscopy Last Scales MD Work Phone: Start: 12-27-2023 Basic metabolic pane l calcium total Last Scales MD Work Phone: Start: 09-20-2023 Urnls dip stick/tabl et rgnt auto w/o microscopy Rosemary Range DICER MACHINE OPERATOR.COLLECTION SYSTEMS TECHNICIAN Work Phone: Start: 07-18-2023 Ecg routine ecg w/le ast 12 lds w/i&r Ralph Tse MD Work Phone: Start: 08-23-2022 Adult depression scr eening assessment Deena Chavez MD Work Phone: Start: 08-16-2022 Ecg routine ecg w/le ast 12 lds w/i&r Ralph Tse MD Work Phone: Start: 08-16-2022 Lipid 1996 panel - S frances or Plasma Phyllis Cueto PA-C Work Phone: Start: 10-23-2019 Radex foot complete minimum 3 views Dyana Polo Work Phone: Start: 02-20-2019 Microscopic observat ion [Identifier] in Cervix by Cyto stain Barrington Colon MD Work Phone: Plan of Treatment Date Care Activity Detail Author Start: 2046 RSV Immunization age d 60 or older (1 - 1-dose 60+ series) RSV Immunization aged 60 or older (1 - 1-dose 60+ series) [facility] Start: 2036 Zoster Vaccines (1 of 2) Zoste r Vaccines (1 of 2) [facility] Start: 08-17-2027 Lipid panel Lipid Panel [facility] Start: 04-13-2027 DTaP/Tdap/Td vaccine (3 - Td or Tdap) DTaP/Tdap/Td vaccine (3 - Td or Tdap) [facility] Start: 04-13-2027 DTaP/Tdap/Td Vaccine s (3 - Td or Tdap) DTaP/Tdap/Td Vaccines (3 - Td or Tdap) [facility] Start: 04-13-2027 Urine microalbumin profile DTaP,Tdap,Td Vaccine (3 - Td or Tdap) [facility] Start: 01-21-2026 HPV TESTING HPV TESTING [facility] Start: 01-21-2026 PAP TESTING PAP TESTING [facility] Start: 01-21-2026 Screening for malign ant neoplasm of cervix [facility] Start: 01-15-2024 COVID-19 Vaccine ( season) COVID-19 Vaccine ( season) [facility] Start: 01-15-2024 Influenza vaccination S [facility] Start: 11-28-2023 End: 11-28-2023 Patient encounter procedure 11/28/2023 1:00 PM EDT Appointment [facility] [address] [place] [address] [place] [phone] Shon Hagan MD [address] [place] [address] [facility] Start: 11-23-2023 End: 11-23-2023 Patient encounter procedure 11/23/2023 1:00 PM EDT Office Visit [facility] [address] [place] [phone] Shon Hagan MD [address] [place] [address] [facility] Start: 11-02-2023 End: 11-02-2023 Patient encounter procedure 11/02/2023 2:40 PM EDT Office Visit [facility] [address] [place] [phone] Cecilia Cooper DO [address] [place], [place] [phone] [facility] Start: 11-02-2023 End: 11-01-2024 XR Lumbar spine 2 or 3 Views [facility] Work Phone: Comment on above: Expected: 11/02/2023 , Expires: 11/01/2024 Once for 1 Occurrenc es starting 11/02/2023 until 11/02/2023 Start: 08-24-2023 Depression Screening Depression Scre ening [facility] Start: 07-18-2023 End: 07-18-2023 Patient encounter procedure 07/18/2023 1:00 PM EST Office Visit [facility] [address] [place] [address] [place] [phone] Ralph Tse MD [address] [facility] [address] [place], [place] [phone] [facility] Start: 06-15-2023 End: 06-15-2023 Patient encounter procedure [facility] Start: 05-16-2023 Behavioral Health Screening Behavioral Health Screening [facility] Start: 04-12-2023 End: 04-12-2023 Patient encounter procedure [facility] Start: 02-22-2023 Depresssion Monitoring Depresssion M onitoring [facility] Start: 01-14-2023 COVID-19 Vaccine () COVID-19 Vaccine () [facility] Start: 01-14-2023 Influenza vaccination S [facility] Start: 12-27-2022 End: 12-27-2022 Patient encounter procedure 12/27/2022 Office Visit Cardiology Ralph Tse MD 1 [facility] [address] [place], [place] [phone] [facility] Start: 09-27-2022 End: 09-27-2022 Patient encounter procedure 09/27/2022 Office Visit Cardiology Ralph Tse MD 1 [facility] [address] [place], [place] [phone] [facility] Start: 08-23-2022 End: 08-23-2022 Telemedicine consultation with patient 08/23/2022 Telemedicine Family Medicine Phyllis Cueto PA-C [address] [facility] [address] [place], [place] [phone] [facility] Start: 08-16-2022 End: 11-15-2022 Cardiac holter monitor (24 hours) Cardiac holter monitor (24 hours) [facility] Routine History of congestive heart failure Palpitations Chest pain, unspecified type Expected: 08/16/2022 (Approximate), Expires: 11/15/2022 [facility] Comment on above: Expected: 08/16/2022 (Approximate), Expires: 11/15/2022 Start: 08-16-2022 End: 08-17-2023 CBC panel - Blood by Automated count CBC Lab Routine Shortness of breath Chest pain, unspecified type Expected: 08/16/2022 (Approximate), Expires: 08/17/2023 [facility] Comment on above: Expected: 08/16/2022 (Approximate), Expires: 08/17/2023 Start: 08-16-2022 End: 08-17-2023 Comprehensive metabolic 1998 panel - Serum or Plasma Comprehensive metabolic panel Lab Routine PVC (premature ventricular contraction) Expected: 08/16/2022 (Approximate), Expires: 08/17/2023 [facility] Work Phone: Comment on above: Expected: 08/16/2022 (Approximate), Expires: 08/17/2023 Start: 08-16-2022 End: 08-17-2023 Magnesium [Mass/volume] in Serum or Plasma Magnesium Lab Routine Palpitations Expected: 08/16/2022 (Approximate), Expires: 08/17/2023 [facility] Comment on above: Expected: 08/16/2022 (Approximate), Expires: 08/17/2023 Start: 08-16-2022 End: 08-17-2023 Thyrotropin [Units/volume] in Serum or Plasma TSH Lab Routine Palpitations Expected: 08/16/2022 (Approximate), Expires: 08/17/2023 [facility] Comment on above: Expected: 08/16/2022 (Approximate), Expires: 08/17/2023 Start: 02-20-2022 Screening for malign ant neoplasm of cervix [facility] Start: 01-14-2022 Influenza vaccination INFLUENZA (#1) [facility] Start: 05-16-2021 DEPRESSION ASSESSMENT DEPRESSION ASS ESSMENT [facility] Start: 01-14-2021 Influenza vaccination Flu vaccine (# 1) [facility] Start: 01-15-2020 Influenza vaccination Flu vacc ine (Season Ended) [facility] [place] [place] Start: 2016 Screening for malign ant neoplasm of cervix [facility] Start: 10-18-2007 Screening for malign ant neoplasm of cervix Pap Smear [facility] Start: 2005 Hepatitis B Vaccine (1 of 3 - 19+ 3-dose series) Hepatitis B Vaccine (1 of 3 - 19+ 3-dose series) [facility] Start: 2005 Hepatitis B Vaccines (1 of 3 - 19+ 3-dose series) Hepatitis B Vaccines (1 of 3 - 19+ 3-dose series) [facility] Start: 2005 Urine microalbumin profile DTAP,TDAP,TD (1 - Tdap) [facility] Start: 10-18-1999 Varicella vaccination Varicell a Vaccines (1 of 2 - 13+ 2-dose series) [facility] Start: 1998 Depression Monitoring Depression Mon itoring [facility] Start: 1992 PNEUMOCOCCAL (1 - PCV) PNEUMOCOCCAL (1 - PCV) [facility] Start: 1992 Pneumococcal 0-64 ye ars Vaccine (1 of 2 - PPSV23) Pneumococcal 0-64 years Vaccine (1 of 2 - PPSV23) [facility] Start: 1992 Pneumococcal vaccination Pneum ococcal Vaccine (1 of 2 - PCV) [facility] Start: 1992 Pneumococcal Vaccine : Pediatrics (0 to 5 Years) and At-Risk Patients (6 to 64 Years) (1 - PCV) Pneumococcal Vaccine: Pediatrics (0 to 5 Years) and At-Risk Patients (6 to 64 Years) (1 - PCV) [facility] Start: 1992 Pneumococcal Vaccine : Pediatrics (0 to 5 Years) and At-Risk Patients (6 to 64 Years) (1 of 2 - PCV) Pneumococcal Vaccine: Pediatrics (0 to 5 Years) and At-Risk Patients (6 to 64 Years) (1 of 2 - PCV) [facility] Start: 10-18-1991 COVID-19 Vaccine (1) COVID-19 Vaccin e (1) [facility] Start: 10-18-1987 MMR Vaccines (1 of 1 - Standard series) MMR Vaccines (1 of 1 - Standard series) [facility] Start: 10-18-1987 Varicella vaccination Varicell a Vaccines (1 of 2 - 2-dose childhood series) [facility] Start: 10-18-1987 Varicella vaccine (1 of 2 - 2-dose childhood series) Varicella vaccine (1 of 2 - 2-dose childhood series) [facility] Start: 04-18-1987 COVID-19 VACCINE (#1) COVID-19 VACCI NE (#1) [facility] Start: 1986 HEPATITIS B (1 of 3 - 3-dose series) HEPATITIS B (1 of 3 - 3-dose series) [facility] Start: 1986 Hepatitis B Vaccines (1 of 3 - 3-dose series) Hepatitis B Vaccines (1 of 3 - 3-dose series) [facility] Start: 1986 Lipid panel Lipid Panel [facility] Bacteria identified in Urine by Culture URINE CULTURE Microbiology Routine Dysuria 09/20/2023 11:29 AM EDT [facility] Work Phone: BACTERIAL VAGINOSIS NAAT BACTERI AL VAGINOSIS NAAT Lab Routine Dysuria 09/20/2023 11:51 AM EDT [facility] ERIN/TRICHOMONAS NAAT ERIN /TRICHOMONAS NAAT Lab Routine Dysuria 09/20/2023 11:51 AM EDT [facility] End: 12-13-2023 MR Lumbar spine WO contrast [facility] Work Phone: Comment on above: Once for 1 Occurrenc es starting 12/13/2023 until 12/13/2023 End: 11-28-2023 US Retroperitoneum [facility] Work Phone: Comment on above: Once for 1 Occurrenc es starting 11/28/2023 until 11/28/2023 [facility] Immunizations Immunization Date Immunization Notes Care Provider Cliff shah 04-13-2017 tetanus toxoid, redu ayesha diphtheria toxoid, and acellular pertussis vaccine, adsorbed [place], [place] 06-22-2006 tetanus toxoid, redu ayesha diphtheria toxoid, and acellular pertussis vaccine, adsorbed Barrington Colon MD Work Phone: [facility] Work Phone: Payers Date Payer Category Payer Medicaid [id number] 2019 Unknown [id number] 2012 Medicaid [id number] 1986 Unknown [id number] Unknown Social History Date Type Detail Facility Start: 04-13-2017 End: 08-13-2024 Tobacco smoking status NHIS Current every day smoker [employer] Start: 04-13-2017 End: 02-15-2024 Alcohol intake Current non-drinker of alcohol (finding) [facility]: 1985 [facility] [place] Exposure to SARS-CoV -2 (event) Unable to assess [facility] Start: 01-29-2017 End: 08-23-2022 Current smoker [facility] Work Phone: History of tobacco use Cigarette Smoker S [facility] Work Phone: Start: 01-29-2017 End: 12-27-2023 Tobacco use and exposure Smokeless tobacco non-user [employer] Phone: Start: 05-22-2020 End: 06-14-2022 History SDOH Alcohol Frequency 1 [employer] Phone: Start: 05-21-2020 End: 05-22-2020 History SDOH Alcohol Std Drinks 99 [employer] Phone: Start: 05-21-2020 End: 06-14-2022 History SDOH Social Connections Phone 5 [employer] Phone: Start: 05-21-2020 End: 06-14-2022 History SDOH Social Connections Membership 2 [employer] Phone: Start: 05-21-2020 End: 06-14-2022 History SDOH Physical Activity DPW 0 [employer] Phone: Start: 05-21-2020 End: 08-23-2022 History SDOH Stress 3 [employer] Phone: Start: 08-01-2021 End: 12-27-2022 Exposure to SARS-CoV-2 (event) Not sure [employer] Phone: Start: 01-21-2021 End: 09-20-2023 Alcohol intake Current drinker of alcohol (finding) [facility] Start: 09-14-2011 History SDOH Alcohol Comment rarely [facility] Start: 06-14-2022 History SDOH Physica l Activity MPS 6 [facility] Start: 1985 Sex Assigned At Female S [facility] Start: 06-14-2022 End: 08-23-2022 Social connection and isolation panel [facility] Do you belong to any clubs or organizations such as catholic groups, unions, fraternal or athletic groups, or school groups? No [facility] Are you now , , , , never or living with a partner? [facility] How often to you hav e a drink containing alcohol? Never [facility] How many standard dr inks containing alcohol do you have on a typical day? Patient does not drink [facility] Do you feel stress - tense, restless, nervous, or anxious, or unable to sleep at night because your mind is troubled all the time - these days [OSQ] To some extent [facility] (I/We) worried wheth er (my/our) food would run out before (I/we) got money to buy more. Never true [facility] Start: 06-14-2022 Gender identity Identifies as female gender (finding) [facility] NEGATED: Highlighted row - - [facility] Work Phone: NEGATED: Highlighted rowStart: NINF History of tobacco use Passive smoker [facility] Functional Status Date Assessment Result Facility NEGATED: Highlighted row Functional performance Functional status health issues are not documented [facility] Work Phone: Mental Status Date Assessment Result Facility NEGATED: Highlighted row Cognitive function [Interpretation] Cognitive status health issues are not documented [facility] Work Phone: Clinical Notes 08-16-2022 to 02-15-2024 Deena Chavez MD - 02/15/2024 11:40 AM EDTTelephone Encounter - Mayra Nugent MA - 01/17/2024 11:34 AM EDTTelephone Encounter - Mayra Nugent MA - 01/17/2024 11:34 AM EDTDischarge Instructions Note Date & Type Note Facility 02-15-2024 History of Present illness Narrative Subjective Patient ID: Odin Garcia is a 38 y.o. female who presents for Back Pain. Was going to [facility]. Just finished there. Right hip is higher than the left. Was moving furniture. Got worse again. Is on Toradol and cyclobenzaprine. Did great with the therapy. She needs a renewal referral. Chart reviewed. Review of Systems Gastrointestinal: Negative for constipation. Genitourinary: Negative for difficulty urinating. Musculoskeletal: Positive for back pain and gait problem. Objective Physical Exam Vitals and nursing note reviewed. Constitutional: General: She is not in acute distress. Appearance: She is not ill-appearing or toxic-appearing. Musculoskeletal: General: Tenderness present. Comments: Tender over the sacral area. SLR is normal on both sides. DTR is good on both sides. Strength is intact. Neurological: Mental Status: She is alert. Assessment/Plan Problem List Items Addressed This Visit None Visit Diagnoses Lumbar spine pain - Primary Acute, uncontrolled Had the MRI in October Needs to go back to therapy Relevant Medications predniSONE (Deltasone) 10 MG tablet Other Relevant Orders External referral to Physical Therapy documented in this encounter [facility] 01-17-2024 Telephone encounter Note Recent Visits Date Type Provider Dept 11/02/23 Office Visit Cecilia Cooper DO [facility] 09/29/23 Office Visit Deena Chavez MD [facility] Showing recent visits within past 365 days and meeting all other requirements Future Appointments No visits were found meeting these conditions. Showing future appointments within next 90 days and meeting all other requirements Requested Prescriptions Pending Prescriptions Disp Refills ketorolac (Toradol) 10 MG tablet 60 tablet 0 Sig: Take 1 tablet (10 mg) by mouth every 6 hours as needed for moderate pain (4-6). gabapentin (Neurontin) 300 MG capsule 90 capsule 0 Sig: Take 1 capsule (300 mg) by mouth every 8 hours as needed (back pain). Provider: Cecilia Cooper DO [id number] - [place], [place] - [address] [facility] [id number] Verified pharmacy: yes Verified day(s) supplied: yes Verified refill(s) needed (previous prescription showing no refills in chart): Yes Have you received any controlled medications from any other provider? Overdue for visit: No If yes - patient scheduled? N/A Most recent labs completed in chart? N/A No UDS or contract on file [facility] 01-17-2024 Miscellaneous Notes Recent Visits Date Type Provider Dept 11/02/23 Office Visit Cecilia Cooper DO [facility] 09/29/23 Office Visit Deena Chavez MD [facility] Showing recent visits within past 365 days and meeting all other requirements Future Appointments No visits were found meeting these conditions. Showing future appointments within next 90 days and meeting all other requirements Requested Prescriptions Pending Prescriptions Disp Refills ketorolac (Toradol) 10 MG tablet 60 tablet 0 Sig: Take 1 tablet (10 mg) by mouth every 6 hours as needed for moderate pain (4-6). gabapentin (Neurontin) 300 MG capsule 90 capsule 0 Sig: Take 1 capsule (300 mg) by mouth every 8 hours as needed (back pain). Provider: Cecilia Cooper DO [id number] - [place], [place] - [address] [facility] [id number] Verified pharmacy: yes Verified day(s) supplied: yes Verified refill(s) needed (previous prescription showing no refills in chart): Yes Have you received any controlled medications from any other provider? Overdue for visit: No If yes - patient scheduled? N/A Most recent labs completed in chart? N/A No UDS or contract on file documented in this encounter [facility] 01-17-2024 Telephone encounter Note Last seen 07/18/23. [facility] 01-17-2024 Miscellaneous Notes Last seen 07/18/23. documented in this encounter [facility] 01-05-2024 Telephone encounter Note OK. See Dr Duarte [facility] 01-05-2024 Miscellaneous Notes [address]. See Dr Duarte Patient was referred to Dr. Mcginnis but he does not take her ins. [facility] [place] documented in this encounter [facility] 01-05-2024 Telephone encounter Note Patient was referred to Dr. Mcginnis but he does not take her ins. Patient can [facility] to [facility] Du[facility] [place] [facility] 12-27-2023 Hospital Discharge instructions Last Scales MD - 12/27/2023 3:26 AM EDT Please return to the Emergency Department immediately for new, worsening, or changing symptoms, or any new concerns, including recurrent persistent or severe back or abdominal pain, fever or chills, nausea vomiting, burning with urination, or bloody urine. Please follow-up with your PCP, established urologist and establish web production assistant within the next [3-5] days. You may take ibuprofen and/or Tylenol as needed for discomfort according to package instructions. The following attachments cannot be sent through Care Everywhere.Pelvic Pain Discharge Instructions (Polish)Severe Abdominal Pain Discharge Instructions, Adult (Polish)Flank Pain ED (Polish)documented in this encounter [facility] 12-27-2023 Emergency department Note Emergency Department Encounter [facility] ED Patient: Rosemary Garcia : 1985 Date of Evaluation: 12/27/2023 ED Provider: Last Scales MD CHIEF COMPLAINT: Abdominal pain Chief Complaint Patient presents with Abdominal Pain HPI: Rosemary Garcia is a 38 y.o. female with PMH per EMR history of kidney stones, presents with concern for abdominal pain. Patient reports 2 PM this afternoon she developed pain in her left lower quadrant abdomen, as well as left flank although she reports she always has pain in her back which is difficult to discern what is new pain, she reports pain feels exactly the same as prior kidney stones in the past, she denies dysuria hematuria urinary frequency, endorses nausea without vomiting, denies fever chills, denies abdominal pain otherwise, vaginal bleeding or discharge, chest pain, cough, shortness of breath, or other associated symptoms or concerns. Patient denies numbness or weakness throughout the extremities, urinary retention or incontinence. REVIEW OF SYSTEMS: Pertinent positives and negatives as per HPI. HISTORIES: PAST MEDICAL HISTORY: as per HPI SOCIAL HISTORY: Per EMR history of tobacco use, reports she is sexually active with 1 consistent male partner only-denies concern for STDs MEDICATIONS: Nursing notes and EMR reviewed ALLERGIES: Nursing notes and EMR reviewed PHYSICAL EXAM: Vital signs: reviewed General: Appears uncomfortable, unable to find position of comfort walking throughout the room Eyes: no conjunctival injection, eyes tracking HEENT: airway patent, mucous membranes moist Cardiovascular: regular rhythm, normal rate Respiratory: non-labored breathing, breath sounds clear Gastrointestinal: soft, non-distended, non-tender to deep palpation throughout, no rigidity guarding, no rash including the left lower quadrant Back: Refuses percussion, no tenderness to palpation midline thoracic or lumbar spine, no step-offs or deformities, no rash including the left flank : Patient declines pelvic exam Extremities: no obvious deformity, non edematous Integumentary: warm, dry Neurologic: alert, no obvious neurologic deficits MEDICAL DECISION MAKING: Medications ketorolac (Toradol) injection 15 mg (15 mg IntraVENous Given 12/27/23 0111) ondansetron (Zofran) injection 4 mg (4 mg IntraVENous Given 12/27/23 0113) Rosemary Garcia is a 38 y.o. female who presents as above, left flank and left lower quadrant abdominal pain, history of kidney stones, reports symptoms are similar to prior kidney stones in the past, she is afebrile with reassuring vitals, well-appearing, benign abdominal exam, presentation concerning for urolithiasis, urinary tract infection, lesser suspicion for an acute intra-abdominal process, discussed management, patient agrees to obtain CT abdomen pelvis, labs, urinalysis, treat with Toradol and Zofran. Patient was able to void without limitation. Labs obtained, interpreted by me, notable for no renal dysfunction, hCG negative, no leukocytosis, UA no UTI or hematuria CT abdomen pelvis per radiologist interpretation punctate bilateral renal calculi, no hydroureteronephrosis, appendix within normal limits, intrauterine device noted, no pelvic masses Patient informed of findings, she reports symptoms improved with treatment, on reevaluation she is in no apparent discomfort or distress, resting in bed comfortably, abdomen is nontender to deep palpation throughout including left lower quadrant, I discussed further management, patient refused self swab for STD testing, she refused transfer to [facility] for pelvic ultrasound to evaluate for an acute gynecologic process including ovarian torsion with clinically low suspicion (pelvic ultrasound not available at this facility at this time), patient elects to be discharged, will prescribe Zofran, recommend NSAIDs for discomfort, recommend close outpatient follow-up with established urologist, web production assistant, and PCP in the next 3 to 5 days with strict return precautions discussed, patient expresses understanding and agreement with plan, stable for discharge. DIAGNOSIS: Left flank pain, left lower quadrant abdominal pain DISPOSITION: Discharge PRESCRIPTIONS: New Prescriptions ONDANSETRON (ZOFRAN) 4 MG TABLET Take 1 tablet (4 mg) by mouth in the morning and 1 tablet (4 mg) at noon and 1 tablet (4 mg) in the evening and 1 tablet (4 mg) before bedtime. Do all this for 3 days. Comment: Please note this report has been produced using speech recognition software and may contain errors related to that system including errors in grammar, punctuation, and spelling, as well as words and phrases that may be inappropriate. If there are any questions or concerns please feel free to contact the dictating provider for clarification. Last Scales MD [employer] Last Scales MD 12/27/23 0350 Pt presents to the ED w c/o LLQ pain 3/10. Pt has a hx of kidney stones. Pt states I have had 25 kidney stones in the past. This feels like the same pain as before. I usually vomit w kidney stones and I am afraid I may throw up. I have a herniated disc at L4-5 and if I vomit I may throw my back out, that is what I am really afraid of. Pain level is 3/10. Pt has rx for flomax, zofran and toradol from the last kidney stone. Pt took a zofran 4 hours ago and a flomax earlier in the day Pt given dc instructions and follow up care, pt verbalizes understanding. IV dc'd, cannula intact. Pt amb indep to dc area documented in this encounter [facility] 12-27-2023 Emergency department Triage note Pt presents to the ED w c/o LLQ pain 3/10. Pt has a hx of kidney stones. Pt states I have had 25 kidney stones in the past. This feels like the same pain as before. I usually vomit w kidney stones and I am afraid I may throw up. I have a herniated disc at L4-5 and if I vomit I may throw my back out, that is what I am really afraid of. Pain level is 3/10. Pt has rx for flomax, zofran and toradol from the last kidney stone. Pt took a zofran 4 hours ago and a flomax earlier in the day [facility] 12-27-2023 Emergency department Triage note Pt given dc instructions and follow up care, pt verbalizes understanding. IV dc'd, cannula intact. Pt amb indep to dc area [facility] 12-27-2023 Physician Emergency department Note Emergency Department Encounter [facility] ED Patient: Rosemary Garcia : 1985 Date of Evaluation: 12/27/2023 ED Provider: Last Scales MD CHIEF COMPLAINT: Abdominal pain Chief Complaint Patient presents with Abdominal Pain HPI: Rosemary Garcia is a 38 y.o. female with PMH per EMR history of kidney stones, presents with concern for abdominal pain. Patient reports 2 PM this afternoon she developed pain in her left lower quadrant abdomen, as well as left flank although she reports she always has pain in her back which is difficult to discern what is new pain, she reports pain feels exactly the same as prior kidney stones in the past, she denies dysuria hematuria urinary frequency, endorses nausea without vomiting, denies fever chills, denies abdominal pain otherwise, vaginal bleeding or discharge, chest pain, cough, shortness of breath, or other associated symptoms or concerns. Patient denies numbness or weakness throughout the extremities, urinary retention or incontinence. REVIEW OF SYSTEMS: Pertinent positives and negatives as per HPI. HISTORIES: PAST MEDICAL HISTORY: as per HPI SOCIAL HISTORY: Per EMR history of tobacco use, reports she is sexually active with 1 consistent male partner only-denies concern for STDs MEDICATIONS: Nursing notes and EMR reviewed ALLERGIES: Nursing notes and EMR reviewed PHYSICAL EXAM: Vital signs: reviewed General: Appears uncomfortable, unable to find position of comfort walking throughout the room Eyes: no conjunctival injection, eyes tracking HEENT: airway patent, mucous membranes moist Cardiovascular: regular rhythm, normal rate Respiratory: non-labored breathing, breath sounds clear Gastrointestinal: soft, non-distended, non-tender to deep palpation throughout, no rigidity guarding, no rash including the left lower quadrant Back: Refuses percussion, no tenderness to palpation midline thoracic or lumbar spine, no step-offs or deformities, no rash including the left flank : Patient declines pelvic exam Extremities: no obvious deformity, non edematous Integumentary: warm, dry Neurologic: alert, no obvious neurologic deficits MEDICAL DECISION MAKING: Medications ketorolac (Toradol) injection 15 mg (15 mg IntraVENous Given 12/27/23 0111) ondansetron (Zofran) injection 4 mg (4 mg IntraVENous Given 12/27/23 0113) Rosemary Garcia is a 38 y.o. female who presents as above, left flank and left lower quadrant abdominal pain, history of kidney stones, reports symptoms are similar to prior kidney stones in the past, she is afebrile with reassuring vitals, well-appearing, benign abdominal exam, presentation concerning for urolithiasis, urinary tract infection, lesser suspicion for an acute intra-abdominal process, discussed management, patient agrees to obtain CT abdomen pelvis, labs, urinalysis, treat with Toradol and Zofran. Patient was able to void without limitation. Labs obtained, interpreted by me, notable for no renal dysfunction, hCG negative, no leukocytosis, UA no UTI or hematuria CT abdomen pelvis per radiologist interpretation punctate bilateral renal calculi, no hydroureteronephrosis, appendix within normal limits, intrauterine device noted, no pelvic masses Patient informed of findings, she reports symptoms improved with treatment, on reevaluation she is in no apparent discomfort or distress, resting in bed comfortably, abdomen is nontender to deep palpation throughout including left lower quadrant, I discussed further management, patient refused self swab for STD testing, she refused transfer to [facility] for pelvic ultrasound to evaluate for an acute gynecologic process including ovarian torsion with clinically low suspicion (pelvic ultrasound not available at this facility at this time), patient elects to be discharged, will prescribe Zofran, recommend NSAIDs for discomfort, recommend close outpatient follow-up with established urologist, web production assistant, and PCP in the next 3 to 5 days with strict return precautions discussed, patient expresses understanding and agreement with plan, stable for discharge. DIAGNOSIS: Left flank pain, left lower quadrant abdominal pain DISPOSITION: Discharge PRESCRIPTIONS: New Prescriptions ONDANSETRON (ZOFRAN) 4 MG TABLET Take 1 tablet (4 mg) by mouth in the morning and 1 tablet (4 mg) at noon and 1 tablet (4 mg) in the evening and 1 tablet (4 mg) before bedtime. Do all this for 3 days. Comment: Please note this report has been produced using speech recognition software and may contain errors related to that system including errors in grammar, punctuation, and spelling, as well as words and phrases that may be inappropriate. If there are any questions or concerns please feel free to contact the dictating provider for clarification. Last Scales MD [facility] Last Scales MD 12/27/23 0350 [facility] 12-20-2023 Telephone encounter Note Authorized on 12.05, performed on 12.12 [facility] 12-20-2023 Miscellaneous Notes Authorized on 12.05, performed on 12.12 Forwarding to classroom coordinator [place] This patient called and was wanting to get her mri lumbar spine scheduled. I was checking on the status of the authorization. Please let me know at your earliest convenience. documented in this encounter [facility] 12-16-2023 Telephone encounter Note Recent Visits Date Type Provider Dept 11/02/23 Office Visit Cecilia Cooper DO [facility] 09/29/23 Office Visit Deena Chavez MD [facility] Showing recent visits within past 365 days and meeting all other requirements Future Appointments No visits were found meeting these conditions. Showing future appointments within next 90 days and meeting all other requirements Requested Prescriptions Pending Prescriptions Disp Refills ketorolac (Toradol) 10 MG tablet 60 tablet 0 Sig: Take 1 tablet (10 mg) by mouth every 6 hours as needed for moderate pain (4-6). gabapentin (Neurontin) 100 MG capsule 128 capsule 0 Sig: Take 1 capsule (100 mg) by mouth Nightly for 2 days, THEN 1 capsule (100 mg) 3 times daily for 2 days, THEN 2 capsules (200 mg) 3 times daily for 20 days. Provider: Cecilia Cooper DO [id number] - [place], [place] - [address] [place] [id number] Verified pharmacy: yes Verified day(s) supplied: yes Verified refill(s) needed (previous prescription showing no refills in chart): Yes Have you received any controlled medications from any other provider? Overdue for visit: No If yes - patient scheduled? N/A Most recent labs completed in chart? No [facility] 12-16-2023 Miscellaneous Notes Recent Visits Date Type Provider Dept 11/02/23 Office Visit Cecilia Cooper DO [facility] 09/29/23 Office Visit Deena Chavez MD [facility] Showing recent visits within past 365 days and meeting all other requirements Future Appointments No visits were found meeting these conditions. Showing future appointments within next 90 days and meeting all other requirements Requested Prescriptions Pending Prescriptions Disp Refills ketorolac (Toradol) 10 MG tablet 60 tablet 0 Sig: Take 1 tablet (10 mg) by mouth every 6 hours as needed for moderate pain (4-6). gabapentin (Neurontin) 100 MG capsule 128 capsule 0 Sig: Take 1 capsule (100 mg) by mouth Nightly for 2 days, THEN 1 capsule (100 mg) 3 times daily for 2 days, THEN 2 capsules (200 mg) 3 times daily for 20 days. Provider: Cecilia Cooper DO [id number] - [place], [place] - [address] [place] [id number] Verified pharmacy: yes Verified day(s) supplied: yes Verified refill(s) needed (previous prescription showing no refills in chart): Yes Have you received any controlled medications from any other provider? Overdue for visit: No If yes - patient scheduled? N/A Most recent labs completed in chart? No documented in this encounter [facility] 12-16-2023 Telephone encounter Note Patient comment: I'm completely out of them. It helps as I get nauseous depending on which nerve is being disrupted. The quick dissolve ones help better then the pills. [facility] 12-16-2023 Miscellaneous Notes Patient comment: I'm completely out of them. It helps as I get nauseous depending on which nerve is being disrupted. The quick dissolve ones help better then the pills. documented in this encounter [facility] 12-01-2023 Emergency department Note Pt has been having lower back pain for 2 months. Got an xray 1 month ago which showed L5 and L4 issues. Marci Forbes RN 12/01/232116 [facility] 12-01-2023 Emergency department Note Pt has been having lower back pain for 2 months. Got an xray 1 month ago which showed L5 and L4 issues. Marci Forbes RN 12/01/232116 documented in this encounter [facility] 11-29-2023 Note Forwarding to referr al coordinator [facility] 11-29-2023 Telephone encounter Note Forwarding to classroom coordinator [facility] 11-25-2023 Telephone encounter Note Hello This patient called and was wanting to get her mri lumbar spine scheduled. I was checking on the status of the authorization. Please let me know at your earliest convenience. [facility] 11-23-2023 History of Present illness Narrative Images from the original note were not included. Shon Hagan MD UROLOGY INITIAL OFFICE VISIT PATIENT NAME: Rosemary Garcia DATE OF : 1985 TODAY'S DATE: 11/23/2023 Chief Complaint: Chief Complaint Patient presents with New Patient Nephrolithiasis Right groin and right upper abdomen HISTORY OF PRESENT ILLNESS: Ms. Garcia is a 38 y.o. female who presents with ureteral calculus. She went to [place] because of the pain. She has had stones in the past. Pain better now. She might have stones in each kidney. She has not passed anything that she knows of. No nausea or fever REVIEW OF SYSTEMS: Review of Systems 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 Headache Herpes Kidney calculi Kidney stones Myopathy PastSurgical History: Past Surgical History: Procedure Laterality Date CYSTOSCOPY LITHOTRIPSY CurrentMedications: Prior to Admission medications Medication Sig Start Date End Date Taking? Authorizing Provider gabapentin (Neurontin) 100 MG capsule Take 1 capsule (100 mg) by mouth Nightly for 2 days, THEN 1 capsule (100 mg) 3 times daily for 2 days, THEN 2 capsules (200 mg) 3 times daily for 20 days. 11/14/23 12/08/23 Yes Cecilia Cooper, DO ketorolac (Toradol) 10 MG tablet Take 1 tablet (10 mg) by mouth every 6 hours as needed for moderate pain (4-6). 11/14/23 Yes Cecilia Cooper, DO loratadine (Claritin) 10 MG tablet TAKE 1 TABLET BY MOUTH ONCE DAILY 08/18/23 Yes Phyllis Cueto PA-C metoprolol tartrate (Lopressor) 25 MG tablet TAKE 1 TABLET BY MOUTH EVERY 8 HOURS NEEDED for palpitations over 100/min 07/18/23 Yes Ralph Tse MD ondansetron ODT (Zofran-ODT) 4 MG disintegrating tablet Take 4 mg by mouth every 8 hours as needed for nausea. 09/27/23 Yes Historical Provider, phenazopyridine (Pyridium) 100 MG tablet Take 100 mg by mouth every 8 hours as needed. 09/27/23 Yes Historical Provider, tamsulosin (Flomax) 0.4 MG 24 hr capsule Take 1 capsule (0.4 mg) by mouth daily. 09/30/23 09/29/24 Yes Deena Chavez MD valACYclovir (Valtrex) 500 MG tablet TAKE 1 TABLET BY MOUTH ONCE DAILY 08/18/23 Yes Phyllis Cueto PA-C buprenorphine-naloxone (Suboxone) 8-2 MG per sublingual film APPLY 1 FILM SUBLINGUALLY TWICE DAILY 11/19/23 Historical Provider, Allergies: Meperidine and Morphine Social History: Social History Socioeconomic History Marital status: Spouse name: Not on file Number of children: Not on file Years of education: Not on file Highest education level: Not on file Occupational History Not on file Tobacco Use Smoking status: Every Day Current packs/day: 0.50 Types: Cigarettes Passive exposure: Never Smokeless tobacco: Never Vaping Use Vaping status: Never Used Substance and Sexual Activity Alcohol use: No Drug use: No Sexual activity: Not on file Other Topics Concern Not on file Social History Narrative Not on file Social Determinants of Health Financial Resource Strain: Low Risk (06/14/2022) Overall Financial Resource Strain (CARDIA) Difficulty of Paying Living Expenses: Not hard at all Food Insecurity: No Food Insecurity (06/14/2022) Hunger Vital Sign Worried About Running Out of Food in the Last Year: Never true Ran Out of Food in the Last Year: Never true Transportation Needs: No Transportation Needs (06/14/2022) PRAPARE - Transportation Lack of Transportation (Medical): No Lack of Transportation (Non-Medical): No Physical Activity: Insufficiently Active (06/14/2022) Exercise Vital Sign Days of Exercise per Week: 2 days Minutes of Exercise per Session: 60 min Stress: Stress Concern Present (08/23/2022) [employer] [place] [employer] - Occupational Stress Questionnaire Feeling of Stress : To some extent Social Connections: Socially Isolated (06/14/2022) Social Connection and Isolation Panel [NHANES] Frequency of Communication with Friends and Family: More than three times a week Frequency of Social Gatherings with Friends and Family: More than three times a week Attends [employer] Services: Never Active Member of Clubs or Organizations: No Attends Club or Organization Meetings: Never Marital Status: Intimate Partner Violence: Not on file Housing Stability: Low Risk (06/14/2022) Housing Stability Vital Sign Unable to Pay for Housing in the Last Year: No Number of Places Lived in the Last Year: 1 Unstable Housing in the Last Year: No Family History: Family History Problem Relation Name Age of Onset Heart attack Mother Heart disease Mother Stroke Mother Other (triple bypass) Mother No Known Problems Sister No Known Problems Daughter No Known Problems Son Heart attack Maternal Grandmother No Known Problems Maternal Grandfather No Known Problems Paternal Grandmother No Known Problems Paternal Grandfather PHYSICAL EXAM: VITALS: BP 115/72 Ht 5' 7 (1.702 m) Wt 159 lb (72.1 kg) BMI 24.90 kg/m Physical Exam HENT: Head: Normocephalic and atraumatic. Eyes: Extraocular Movements: Extraocular movements intact. Pulmonary: Effort: Pulmonary effort is normal. Musculoskeletal: General: Normal range of motion. Cervical back: Normal range of motion. Neurological: General: No focal deficit present. Mental Status: She is alert and oriented to person, place, and time. Psychiatric: Mood and Affect: Mood normal. Behavior: Behavior normal. Thought Content: Thought content normal. Judgment: Judgment normal. LABS: No results found for: PSA No results found for: TESTOSTERONE Lab Results Component Value Date WBC 8.1 08/16/2022 HGB 14.9 08/16/2022 HCT 44.2 08/16/2022 MCV 88.4 08/16/2022 PLT 306 08/16/2022 Lab Results Component Value Date GLUCOSE 87 08/16/2022 CALCIUM 9.6 08/16/2022 CO2 25 08/16/2022 BUN 14 08/16/2022 CREATININE 0.94 08/16/2022 Radiology: Imaging at [facility] showed bladder stone and stones in each kidney Impression/Plan Odin was seen today for new patient and nephrolithiasis. Diagnoses and all orders for this visit: Kidney stone on right side - [facility] [place] Urology Follow up if symptoms worsen or fail to improve. Will recheck renal ultrasound The patient should : Increase oral fluid intake, especially in warmer weather or when physically active Drink lemonade daily (made out of real seb or real lemon juice) Try to make at least 2 quarts of urine per day Reduce salt intake and processed foods Reduce intake of animal protein, while increasing protein intake via other sources Shon Hagan MD 11/24/23 5:26 PM documented in this encounter [facility] 11-02-2023 History of Present illness Narrative Images from the original note were not included. [facility] [id number] [facility] [id number] Visit Type: Same Day PCP: Deena Chavez MD Reason for Visit: Back Pain (Lower back radiating crushing pressure pain 3-8/10 every time pt twist right or left. X3 wks. Getting worse tylenol not helping but ibuprofen relieves slightly. ) Assessment and Plan Odin was seen today for back pain. Diagnoses and all orders for this visit: Lumbar spine pain - XR lumbar spine 2 or 3 views; Future - methylPREDNISolone (Medrol Dospak) 4 MG tablets; Take as directed on package. We discussed that her symptoms sound like a possible herniated disc, but she is fortunately not having any neurologic symptoms suggestive of nerve root compression. Explained xray can help identify any disc space narrowing and suggestion for further investigation. Will do a trial of nsaids (which she has at home) + medrol (which has limited evidence but may be helpful). Advised on gentle stretches and avoiding immobility. Follow up if symptoms worsen or fail to improve. Patient Instructions You can take either diclofenac or Toradol or ibuprofen. Cannot take together as they all have the same mechanism and can really cause issues with gastritis and kidney damage. Subjective HPI H/o kidney stones. Low back pain. For 3 weeks. Progressively worse in the past week Worse with twisting torso, shifting hips, getting out of bed or up from seated. Trying to stretch gently. Pain stays well localized over the lower lumbar spine around L4-5 area. No radiation noted. She has a physically strenuous job. But no episode to cause symptom. Aspirin and tylenol don't help. Ibuprofen helps a bit. Laying flat makes the pain feel better. H/o herniated disc as a teen. Bilat hip pain associated. But no shooting pain down her legs. Not similar to kidney stone pain. Taking flexeril at night. Cannot take during the day. Review of Systems Pertinent ROS noted in the HPI and all other systems are negative. Current Outpatient Medications Medication Sig Dispense Refill diclofenac (Voltaren) 75 MG EC tablet Take 1 tablet (75 mg) by mouth 2 times daily as needed (pain). Do not crush, chew, or split. 30 tablet 0 ketorolac (Toradol) 10 MG tablet Take 1 tablet by mouth every 6 hours as needed. loratadine (Claritin) 10 MG tablet TAKE 1 TABLET BY MOUTH ONCE DAILY 90 tablet 3 metoprolol tartrate (Lopressor) 25 MG tablet TAKE 1 TABLET BY MOUTH EVERY 8 HOURS NEEDED for palpitations over 100/min 270 tablet 3 ondansetron ODT (Zofran-ODT) 4 MG disintegrating tablet Take 4 mg by mouth every 8 hours as needed for nausea. phenazopyridine (Pyridium) 100 MG tablet Take 100 mg by mouth every 8 hours as needed. tamsulosin (Flomax) 0.4 MG 24 hr capsule Take 1 capsule (0.4 mg) by mouth daily. 30 capsule 0 valACYclovir (Valtrex) 500 MG tablet TAKE 1 TABLET BY MOUTH ONCE DAILY 90 tablet 3 methylPREDNISolone (Medrol Dospak) 4 MG tablets Take as directed on package. 21 tablet 0 No current facility-administered medications for this visit. Patient Active Problem List Diagnosis Date Noted Seasonal allergies 10/12/2022 History of congestive heart failure 06/14/2022 Anxiety 06/14/2022 Attention deficit hyperactivity disorder (ADHD), predominantly inattentive type 06/14/2022 HSV-1 (herpes simplex virus 1) infection 06/02/2020 IUD (intrauterine device) in place 06/02/2020 Objective BP 108/67 (BP Location: Left arm, Patient Position: Sitting, BP Cuff Size: Adult) Pulse 70 Ht 5' 7 (1.702 m) Wt 163 lb (73.9 kg) SpO2 96% BMI 25.53 kg/m Physical Exam Gen: uncomfortable appearing, but otherwise no distress Msk: localized pain to the L4-5 midline and paraspinals. But no induced pain with SLR . Slow to rise from a seated position. There are no discontinued medications. Cecilia Allison, DO 11/02/2023 3:57 PM documented in this encounter [facility] 11-02-2023 Instructions Cecilia Cooper DO - 11/02/2023 2:40 PM EDT You can take either diclofenac or Toradol or ibuprofen. Cannot take together as they all have the same mechanism and can really cause issues with gastritis and kidney damage. documented in this encounter [facility] 11-01-2023 Telephone encounter Note S: Patient spoke with [facility] nurse regarding low back pain. B: Onset of symptoms/concern began about 3 weeks ago. A: Patient thinks she pinched a nerve in her low back or may have a disc problem. Recently had 3 kidney stones with vomiting and a lot of pain. Does not know if she could have injured it then as the pain started after that. 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 The pain is rated as a 2-3/10 that is constant, but can shoot up to a 7-8/10 with twisting or other movements. States she wants to be evaluated for a disc injury. No numbness, tingling, or weakness in extremities. No shooting pain into legs. No bowel or bladder concerns. R: Appt made with Dr. Cooper for 11/01 at 2:40p. Insurance verified with patient as [employer]. Advised patient to bring photo ID, insurance card, and arrive 10 minutes early to appointment. No further needs at this time. Patient instructed to call back with new or worsening symptoms. Reason for Disposition MODERATE back pain (e.g., interferes with normal activities) and present > 3 days Protocols used: Back [id number] [facility] 11-01-2023 Miscellaneous Notes S: Patient spoke with [facility] nurse regarding low back pain. B: Onset of symptoms/concern began about 3 weeks ago. A: Patient thinks she pinched a nerve in her low back or may have a disc problem. Recently had 3 kidney stones with vomiting and a lot of pain. Does not know if she could have injured it then as the pain started after that. 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 The pain is rated as a 2-3/10 that is constant, but can shoot up to a 7-8/10 with twisting or other movements. States she wants to be evaluated for a disc injury. No numbness, tingling, or weakness in extremities. No shooting pain into legs. No bowel or bladder concerns. R: Appt made with Dr. Cooper for 11/01 at 2:40p. Insurance verified with patient as [employer]. Advised patient to bring photo ID, insurance card, and arrive 10 minutes early to appointment. No further needs at this time. Patient instructed to call back with new or worsening symptoms. Reason for Disposition MODERATE back pain (e.g., interferes with normal activities) and present > 3 days Protocols used: Back [id number] documented in this encounter [facility] 10-03-2023 Telephone encounter Note Spoke with pt. Scheduled first available on 11/23/[address] Hagan. [facility] 10-03-2023 Miscellaneous Notes Spoke with pt. Scheduled first available on 11/23/[address] Hagan. Name of Caller: Odin Contact Reason for Appointment: Patient called to schedule a new patient appointment. She has a referral in the system for kidney stones. Please advise Office Name: Urology Medication Refills need, if any: n/a Medication Name: n/a documented in this encounter [facility] 09-30-2023 Telephone encounter Note See previous encounters S: Patient spoke with [facility] nurse regarding pain from kidney stones B: Onset of symptoms/concern 09/29/23 A: States they wanted to clarify they were not asking for narcotics and will not be seeking drugs from friends. They want to clarify what they meant. Patient states they were going to search for a natural remedy. Patient states they will be utilizing stinging nettle root for the sharp pain. States if pain become constant at severe level, if they are unable to urinate or have benja blood in urine they will go to ED. Patient states they were previously given ultram for kidney stones and did not realize that Ultram is now considered a narcotic. R: Patient understands care advice to call back if pain worsens, if develops a fever, hematuria, anuria or with further concerns or questions. No further needs at this time. Patient instructed to call back with new or worsening symptoms. [facility] 09-30-2023 Miscellaneous Notes See previous encounters S: Patient spoke with [facility] nurse regarding pain from kidney stones B: Onset of symptoms/concern 09/29/23 A: States they wanted to clarify they were not asking for narcotics and will not be seeking drugs from friends. They want to clarify what they meant. Patient states they were going to search for a natural remedy. Patient states they will be utilizing stinging nettle root for the sharp pain. States if pain become constant at severe level, if they are unable to urinate or have benja blood in urine they will go to ED. Patient states they were previously given ultram for kidney stones and did not realize that Ultram is now considered a narcotic. R: Patient understands care advice to call back if pain worsens, if develops a fever, hematuria, anuria or with further concerns or questions. No further needs at this time. Patient instructed to call back with new or worsening symptoms. S: Patient spoke with [facility] nurse regarding pt in a lot of pain from kidney stone B: Onset of symptoms/concern has gotten worse through out the night. A: The patient was Dx with 3 kidney stones at the ED on 09/28/23, 2 days ago, and has passed one. Pain is all along right side, right back and hip. Feels like it is wrapping around the body into the groin. C/o hematuria, (a little bit seen in urine,) and pain shooting into groin and down leg. -11/22 but describes it as severe. Feels sweaty but does not feel like passing out. Feels hot and cold but does not have a thermometer. Was nauseated this morning but is better now, since took Zofran and ate some yogurt and plans on taking the Voltaren in a few minutes. Denies . The patient is asking for pain medication. Allergic to Morphine and Meperidine uses [facility] [phone]. R: Call placed to the office for a secondary triage with Dr Chavez. The LIEUTENANT GOVERNOR, Emmy Chino advised that the patient go back to the ED because the stone might be lodged in the ureter. The patient started to cry and states she won't go back to the ED because they didn't do much for her. Strongly advised her to go to the ED but the patient continued to refuse, stating she will try to find some pain pills, and she will deal with this at home. Reiterated the need to go to the ED in the case that she was unable to pass the stone, continues to refuse. She states if the pain gets worse she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 Normal rate and regular rhythm. Pulses: Normal pulses. Heart sounds: Normal heart sounds. No murmur heard. No friction rub. No gallop. Comments: 98/62 mm Hg sitting, reg cuff L Pulmonary: Effort: Pulmonary effort is normal. No respiratory distress. Breath sounds: Normal breath sounds. No stridor. No wheezing, rhonchi or rales. Musculoskeletal: Right lower leg: No edema. Left lower leg: No edema. Neurological: Mental Status: She is alert. Psychiatric: Mood and Affect: Mood normal. Thought Content: Thought content normal. Cardiac Tests: ECG: Jun 2022; NSR; normal Last Echo: February 2008 in the [facility] which revealed normal LV size and function, ejection fraction 60%, normal diastolic function; no valve disease. Last stress test: requested Last cardiac catheterization: NA Assessment and Plan: 1. History of congestive heart failure 2. Attention deficit hyperactivity disorder (ADHD), predominantly inattentive type 3. Anxiety 4. Palpitations Exam is good today Palpitations are under improved control No changes in current meds Return in 9-10 months, sooner is new sx presents documented in this encounter [facility] 06-07-2023 Telephone encounter Note Last seen 12/27/22. [facility] 06-07-2023 Miscellaneous Notes Last seen 12/27/22. documented in this encounter [facility] 12-27-2022 History of Present illness Narrative [facility] Cardiology [address] [facility] [address] Dept: [phone] Dept Loc: [phone] Visit type: Established : 1985 Chief Complaint: Chief Complaint Patient presents with 3 Month Follow Up History of Present Illness: Odin Garcia is a 37 yo lady seen Jun 2022 for reported h/o of heart failure. Information was limited/sketchy, previous heart failure symptoms sounded to be tahira-. It appears she had seen Dr. Marsh in the past, and LV had recovered. Review of the EMR found EKG in 2014, sinus tachycardia; otherwise normal. The patient requested follow up with cardiology. Additional medical problems: ADHD and anxiety. When seen in the office, the pt reported chest pain, upper sternal and upper neck, with associated globus sensation, and noted fast HR as well. Palpitations had abrupt start/stop and abrupt thud when it stops. Events were reported daily, and previously had been noted every few months. Sx were present with or without exertion.The pt told me: tachycardic and bradycardic at the same time -if you know what I mean. Ms. Garcia also noted: I have physically pressed on my chest to make it go back to a normal beat. Mother had CABG in her early 60's. No known FH of arrhythmia, ICD, PPM. Duration of sx were noted from minutes to hours. States she has gone to the hospital a few times - they didn't give me too many answers, they told me to go see a roadside mechanic. When asked about SOB she noted sx were more like I can't take in a full breath. Updated echo: normal LV size/ fxn, EF 70%, no WMA, normal diastolic function; small LA; normal R side, no valve disease. Ambulatory stress: 94% MPHR, 10.2 METs; no EKG changes; PVC's no arrhythmia, DTS 9, low risk. EM with occasional but isolated and unifocal PVC's. When seen in follow up in August 2022, Ms. Garcia noted sx were worse. She told RN that her watch suggested AF - really not likely with structurally normal heart and no valve disease as well as young age. She had continued to note chest pressure daily, throughout the day - with and without exertion. Holter done to assess burden of ectopy: 1.2% PVC's. 0.4% PAC's; rates 48-148 and average 88, all normal for her young age. The pt noted that she had no sx while the monitor was in place, but upon taking the device off, sx returned.There has been no LOC. BB dosing was adjusted, and she was asked to return today for follow up. Ivabradine can be used for inappropriate ST - but the last few EKG's were all NSR, and the Holter did not indicate an issue. Symptoms are out of proportion to the severity of disease in this case. Son and father in major MVA, dad critically injured. She has been doing a lot of the home care. The BB seems to have improved things. The meds work overall with events. Has continued to have some chest discomfort - felt like a pulsation, on and off. 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 Headache Herpes Kidney calculi Kidney stones Myopathy Past Surgical History Past Surgical History: Procedure Laterality Date CYSTOSCOPY LITHOTRIPSY Family History Family History Problem Relation Name Age of Onset Heart attack Mother Heart disease Mother Stroke Mother Other (triple bypass) Mother No Known Problems Sister No Known Problems Daughter No Known Problems Son Heart attack Maternal Grandmother No Known Problems Maternal Grandfather No Known Problems Paternal Grandmother No Known Problems Paternal Grandfather Social History Social History Tobacco Use Smoking status: Every Day Packs/day: 0.50 Types: Cigarettes Passive exposure: Never Smokeless tobacco: Never Vaping Use Vaping Use: Never used Substance Use Topics Alcohol use: No Drug use: No Allergies: Allergies Allergen Reactions Meperidine Rash erythema, pruritus Morphine Itching and Rash erythema, pruritus Medications: Current Outpatient Medications: buPROPion XL (Wellbutrin XL) 150 MG 24 hr tablet, Take 1 tablet (150 mg) by mouth every morning. Do not crush, chew, or split., Disp: 30 tablet, Rfl: 1 busPIRone (Buspar) 10 MG tablet, Take 1 tablet (10 mg) by mouth 2 times daily. (Patient taking differently: Take 10 mg by mouth daily.), Disp: 180 tablet, Rfl: 1 loratadine (Claritin) 10 MG tablet, Take 1 tablet (10 mg) by mouth daily., Disp: 30 tablet, Rfl: 2 metoprolol tartrate (Lopressor) 25 MG tablet, 25 mg up to every 8 hours as needed for palpitations, rate > 100/min, Disp: 45 tablet, Rfl: 3 valACYclovir (Valtrex) 500 MG tablet, Take 1 tablet by mouth once daily. INSTRUCTED. Strength: 500 mg, Disp: 90 tablet, Rfl: 3 atomoxetine (Strattera) 40 MG capsule, Take 1 capsule (40 mg) by mouth daily. Swallow capsule whole; do not open. If opened accidentally, do not touch eyes; wash hands immediately (product is an eye irritant)., Disp: 30 capsule, Rfl: 0 Review of Systems: Review of Systems Constitutional: Positive for fatigue. Negative for activity change, chills, diaphoresis and fever. HENT: Negative for nosebleeds. Eyes: Negative for visual disturbance. Respiratory: Negative for apnea, cough, chest tightness, shortness of breath and wheezing. Cardiovascular: Positive for chest pain (last 2 days but had not had in awhile) and palpitations (daily; has felt better with BB). Negative for leg swelling. In bed to sleep; one pillow; states intermittent PND; no RF/ SF; no activity limits in youth; no murmur; no routine dental prophylaxis; has Raynaud's as well Gastrointestinal: Negative for abdominal distention, abdominal pain, blood in stool, diarrhea, nausea and vomiting. Endocrine: Negative for cold intolerance and heat intolerance. Genitourinary: Negative for hematuria. Musculoskeletal: Positive for arthralgias. Negative for gait problem and myalgias. Skin: Negative for color change and rash. Allergic/Immunologic: Positive for environmental allergies. Neurological: Positive for dizziness (on occasion but better), syncope (one episode felt presyncopal since last office visit) and headaches (increased mingraine COVINGTON). Negative for weakness, light-headedness and numbness. Hematological: Bruises/bleeds easily. No blood tx; no DVT, no PE; no miscarriages Psychiatric/Behavioral: Positive for sleep disturbance (sleeps 6 hours; wakes her up at night). Negative for dysphoric mood. The patient is nervous/anxious (little better). Physical Examination: Vitals: Vitals: 12/27/22 1304 BP: 100/60 BP Location: Left arm Patient Position: Sitting BP Cuff Size: Adult Pulse: 80 Resp: 16 Weight: 160 lb (72.6 kg) Height: 5' 8 (1.727 m) Body mass index is 24.33 kg/m . Physical Exam Vitals and nursing note reviewed. Constitutional: Appearance: Normal appearance. She is not diaphoretic. Comments: Presents alone, looks well, overall good historian Cardiovascular: Rate and Rhythm: Normal rate and regular rhythm. Pulses: Normal pulses. Heart sounds: Normal heart sounds. No murmur heard. No friction rub. No gallop. Comments: 110/72 mm Hg Pulmonary: Effort: Pulmonary effort is normal. No respiratory distress. Breath sounds: Normal breath sounds. No stridor. No wheezing, rhonchi or rales. Musculoskeletal: Right lower leg: No edema. Left lower leg: No edema. Skin: Findings: No rash. Neurological: Mental Status: She is alert. Gait: Gait normal. Psychiatric: Mood and Affect: Mood normal. Behavior: Behavior normal. Cardiac Tests: ECG: Jun 2022; NSR; normal Last Echo: February 2008 in the [facility] system which revealed normal LV size and function, ejection fraction 60%, normal diastolic function; no valve disease. Last stress test: requested Last cardiac catheterization: NA Assessment and Plan: 1. History of congestive heart failure 2. Palpitations Currently, the beta-jaime therapy seems to be working well. Symptoms are generally self-limited. No additional intervention at this time. I asked the patient to return in about 6 months, sooner if new or escalating symptoms develop. She is considered a low risk individual at this time from a cardiac standpoint. documented in this encounter [facility] 10-12-2022 Evaluation + Plan note Associated Problem(s): Anxiety - Chronic and unstable. - Switching from Strattera to Wellbutrin. - Continue Buspar. [facility] 10-12-2022 Miscellaneous Notes Associated Problem(s): Anxiety - Chronic and unstable. - Switching from Strattera to Wellbutrin. - Continue Buspar. Associated Problem(s): Attention deficit hyperactivity disorder (ADHD), predominantly inattentive type - Chronic and unstable. - Switching from Strattera to Wellbutrin. documented in this encounter [facility] 10-12-2022 Evaluation + Plan note Associated Problem(s): Attention deficit hyperactivity disorder (ADHD), predominantly inattentive type - Chronic and unstable. - Switching from Strattera to Wellbutrin. [facility] 10-12-2022 History of Present illness Narrative Images from the original note were not included. [facility] [id number] [facility] [address] [facility] [address] Dept: [phone] Dept Reason for Visit: Follow-up (No concerns ) and Med Refill Assessment and Plan 1. Attention deficit hyperactivity disorder (ADHD), predominantly inattentive type Assessment & Plan: - Chronic and unstable. - Switching from Strattera to Wellbutrin. Orders: - atomoxetine (Strattera) 40 MG capsule; Take 1 capsule (40 mg) by mouth daily. Swallow capsule whole; do not open. If opened accidentally, do not touch eyes; wash hands immediately (product is an eye irritant)., Starting Tue10/12/2022, Until Cinthya 11/11/2022, Normal - buPROPion XL (Wellbutrin XL) 150 MG 24 hr tablet; Take 1 tablet (150 mg) by mouth every morning. Do not crush, chew, or split., Starting Tue10/12/2022, Until 12/11/2022, Normal 2. Anxiety Assessment & Plan: - Chronic and unstable. - Switching from Strattera to Wellbutrin. - Continue Buspar. Orders: - buPROPion XL (Wellbutrin XL) 150 MG 24 hr tablet; Take 1 tablet (150 mg) by mouth every morning. Do not crush, chew, or split., Starting Tue10/12/2022, Until 12/11/2022, Normal 3. Seasonal allergies - loratadine (Claritin) 10 MG tablet; Take 1 tablet (10 mg) by mouth daily., Starting Tue10/12/2022, Until 01/10/2023, Normal Follow up in about 6 months (around 04/14/2023) for Med f/u. Subjective HPI Pt presents today for medication follow up. She does not feel that her Strattera is working well. She would be interested in switching medication. Feels a lot of social anxiety and having little to no motivation. No SI. She does think the Buspar is working. Needing a refill of her allergy medication. No additional concerns today. Review of Systems Constitutional: Negative for activity change and appetite change. Respiratory: Negative for chest tightness and shortness of breath. Cardiovascular: Negative for chest pain and palpitations. Gastrointestinal: Negative for abdominal pain and blood in stool. Neurological: Negative for dizziness and light-headedness. Psychiatric/Behavioral: Positive for decreased concentration. The patient is nervous/anxious. Allergies Allergen Reactions Meperidine Rash erythema, pruritus Morphine Itching and Rash erythema, pruritus Outpatient Medications Prior to Visit Medication Sig Dispense Refill busPIRone (Buspar) 10 MG tablet Take 1 tablet (10 mg) by mouth 2 times daily. (Patient taking differently: Take 10 mg by mouth daily.) 180 tablet 1 metoprolol tartrate (Lopressor) 25 MG tablet 25 mg up to every 8 hours as needed for palpitations, rate > 100/min 45 tablet 3 valACYclovir (Valtrex) 500 MG tablet Take 1 tablet by mouth once daily. INSTRUCTED. Strength: 500 mg 90 tablet 3 atomoxetine (Strattera) 100 MG capsule Take 1 capsule (100 mg) by mouth daily. Swallow capsule whole; do not open. If opened accidentally, do not touch eyes; wash hands immediately (product is an eye irritant). 90 capsule 1 loratadine (Claritin) 10 MG tablet Take 1 tablet (10 mg) by mouth daily. 30 tablet 2 No facility-administered medications prior to visit. 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 Headache Herpes Kidney calculi Kidney stones Myopathy Social History Tobacco Use Smoking status: Every Day Packs/day: 0.50 Types: Cigarettes Passive exposure: Never Smokeless tobacco: Never Substance Use Topics Alcohol use: No Past Surgical History: Procedure Laterality Date CYSTOSCOPY LITHOTRIPSY Family History Problem Relation Name Age of Onset Heart attack Mother Heart disease Mother Stroke Mother Other (triple bypass) Mother No Known Problems Sister No Known Problems Daughter No Known Problems Son Heart attack Maternal Grandmother No Known Problems Maternal Grandfather No Known Problems Paternal Grandmother No Known Problems Paternal Grandfather Objective BP 104/65 (BP Location: Left arm, Patient Position: Sitting, BP Cuff Size: Adult) Pulse 77 Ht 5' 8 (1.727 m) Wt 151 lb (68.5 kg) SpO2 97% BMI 22.96 kg/m Physical Exam Vitals and nursing note reviewed. Constitutional: Appearance: Normal appearance. Cardiovascular: Rate and Rhythm: Normal rate and regular rhythm. Heart sounds: Normal heart sounds. Pulmonary: Effort: Pulmonary effort is normal. Breath sounds: Normal breath sounds. Neurological: Mental Status: She is alert. Psychiatric: Mood and Affect: Mood normal. Behavior: Behavior normal. Thought Content: Thought content normal. Judgment: Judgment normal. Data Reviewed and Summarized Labs: Imaging/Testing: Phyllis Cueto PA-C documented in this encounter [facility] 08-23-2022 Evaluation + Plan note Associated Problem(s): Anxiety - Chronic and unstable. - Increasing Buspar to 10 mg BID. [facility] 08-23-2022 Evaluation + Plan note Associated Problem(s): Attention deficit hyperactivity disorder (ADHD), predominantly inattentive type - Chronic and unstable. - Increasing Strattera to 100 mg daily. [facility] 08-23-2022 Miscellaneous Notes Associated Problem(s): Anxiety - Chronic and unstable. - Increasing Buspar to 10 mg BID. Associated Problem(s): Attention deficit hyperactivity disorder (ADHD), predominantly inattentive type - Chronic and unstable. - Increasing Strattera to 100 mg daily. documented in this encounter [facility] 08-23-2022 History of Present illness Narrative Images from the original note were not included. [facility] [address] [address] [facility] [address] Dept: [phone] Dept Patient was seen today via Telehealth by agreement and consent in light of the current COVID-19 pandemic. I used the following Telehealth technology: Audio and video capabilities Patient location: Home. This patient encounter is appropriate and reasonable under the circumstances given the patient's particular presentation at this time. The patient has been advised of the potential risks and limitations of this mode of treatment (including but not limited to the absence of in-person examination) and has agreed to be treated in a remote fashion in spite of them. Any and all of the patient's/patient's family's questions on this issue have been answered and I have made no promises or guarantees to the patient. The patient has also been advised to contact this office for worsening conditions or problems, and seek emergency medical treatment and/or call 911 if the patient deems either necessary. The patient stated that they are currently in the state [facility]. If the patient is a minor, permission has been obtained by the parent or guardian for the patient to receive medical care at this visit. Reason for Visit: Follow-up, Discuss Labs (Pt would like to discuss recent lab results), Discuss Medications (Pt said she is taking Buspar and Strattera and she does not feel like the meds are helping , she would like to discuss other med options or increasing the medications), and Allergies (Pt said she woke up last night and her eyes were itchy and she had a stuffy nose , ended up taking an OTC allergy pill which was helpful) Assessment and Plan 1. Attention deficit hyperactivity disorder (ADHD), predominantly inattentive type Assessment & Plan: - Chronic and unstable. - Increasing Strattera to 100 mg daily. Orders: - atomoxetine (Strattera) 100 MG capsule; Take 1 capsule (100 mg) by mouth daily. Swallow capsule whole; do not open. If opened accidentally, do not touch eyes; wash hands immediately (product is an eye irritant)., Starting 08/23/2022, Until Tue09/22/2022, Normal 2. Anxiety Assessment & Plan: - Chronic and unstable. - Increasing Buspar to 10 mg BID. Orders: - busPIRone (Buspar) 10 MG tablet; Take 1 tablet (10 mg) by mouth 2 times daily., Starting 08/23/2022, Until Tue08/23/2023, Normal 3. Seasonal allergies - loratadine (Claritin) 10 MG tablet; Take 1 tablet (10 mg) by mouth daily., Starting 08/23/2022, Until Tue11/21/2022, Normal Follow up if symptoms worsen or fail to improve. Subjective HPI Pt requests VV today to discuss medications. She does not feel either the buspar or the strattera are working well. She would be interested in increasing the dose of both. Feels a lot of social anxiety and having little to no motivation. No SI. Pt is tearful during visit today. She also states she is having symptoms of seasonal allergies. C/o runny nose, watery eyes, sneezing. Claritin did help. Would like a prescription sent in for this. No additional concerns today. Review of Systems Constitutional: Negative for activity change and appetite change. Respiratory: Negative for chest tightness and shortness of breath. Cardiovascular: Negative for chest pain and palpitations. Gastrointestinal: Negative for abdominal pain and blood in stool. Neurological: Negative for dizziness and light-headedness. Allergies Allergen Reactions Meperidine Rash erythema, pruritus Morphine Itching and Rash erythema, pruritus Outpatient Medications Prior to Visit Medication Sig Dispense Refill valACYclovir (Valtrex) 500 MG tablet Take 1 tablet by mouth once daily. INSTRUCTED. Strength: 500 mg 90 tablet 3 atomoxetine (Strattera) 25 MG capsule Take 2 capsules (50 mg) by mouth daily. Swallow capsule whole; do not open. If opened accidentally, do not touch eyes; wash hands immediately (product is an eye irritant). 60 capsule 3 busPIRone (Buspar) 5 MG tablet Take 1 tablet (5 mg) by mouth 2 times daily. 60 tablet 11 No facility-administered medications prior to visit. 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 Headache Herpes Kidney calculi Kidney stones Myopathy Social History Tobacco Use Smoking status: Every Day Packs/day: 0.50 Types: Cigarettes Passive exposure: Never Smokeless tobacco: Never Substance Use Topics Alcohol use: No Past Surgical History: Procedure Laterality Date CYSTOSCOPY LITHOTRIPSY Family History Problem Relation Name Age of Onset Heart attack Mother Heart disease Mother Stroke Mother Other (triple bypass) Mother No Known Problems Sister No Known Problems Daughter No Known Problems Son Heart attack Maternal Grandmother No Known Problems Maternal Grandfather No Known Problems Paternal Grandmother No Known Problems Paternal Grandfather Objective Ht 5' 8 (1.727 m) Wt 150 lb (68 kg) BMI 22.81 kg/m Physical Exam Vitals and nursing note reviewed. Constitutional: Appearance: Normal appearance. Cardiovascular: Rate and Rhythm: Normal rate and regular rhythm. Heart sounds: Normal heart sounds. Pulmonary: Effort: Pulmonary effort is normal. Breath sounds: Normal breath sounds. Neurological: Mental Status: She is alert. Psychiatric: Mood and Affect: Mood normal. Affect is tearful. Behavior: Behavior normal. Thought Content: Thought content normal. Judgment: Judgment normal. Data Reviewed and Summarized Labs: Imaging/Testing: Phyllis Cueto PA-C documented in this encounter [facility] 08-16-2022 History of Present illness Narrative [facility] [address] [facility] [address] [facility] [address] Dept: [phone] Dept Loc: [phone] Visit type: Established : 1985 Chief Complaint: Chief Complaint Patient presents with Follow-up 6 weeks History of Present Illness: Odin Garcia is a 36-year-old lady seen Jun 2022 for reported h/o of heart failure. Information was limited/sketchy, previous heart failure symptoms sounded to be tahira-. It appears she had seen Dr. Marsh in the past, and LV had recovered (peripartum cardiomyopathy usually shows a third recovery, a third unchanged, and a third worsening). Review of the EMR found EKG done in 2014, sinus tachycardia; otherwise normal. It appears the patient requested follow up with cardiology at this time. Additional diagnoses included ADHD and anxiety. There is remote echo February 2008 in the [facility] system which revealed normal LV size and function, EF 60%, normal diastolic function; no valve disease. When seen in the office, the pt reported chest pain, upper sternal and upper neck, and trachea, states there is a globus sensation, and noted fast HR as well. Palpitations had abrupt start/stop and abrupt thud when it stops. Events were reported daily, and previously had been noted every few months. Sx were present with or without exertion. Abrupt start and stop - tachycardic and bradycardic at the same time -if you know what I mean. Pt also reported: I have physically pressed on my chest to make it go back to a normal beat. Mother had CABG early 60's, recent. No known FH of arrhythmia, ICD, PPM. Duration can be minutes to hours. States she has gone to the hospital a few times - they didn't give me too many answers, they told me to go see a roadside mechanic. States not chest pain = pressure or squeezing in the chest. Also noted SOB with the events, no associated cough or wheeze. More like I can't take in a full breath. States also ++ nausea, no diaphoresis. Repeat echo: normal LV size/ fxn, EF 70%, no WMA, normal diastolic funtion; small LA; normal R side, no valve disease. Ambulatory stress: 94% MPHR, 10.2 METs; no EKG changes; PVC's no arrhythmia, DTS 9, low risk. EM with occasional but isolated and unifocal PVC's. She returns for follow up. States sx are worse, increasing events. States she had AF on monitor to RN, not sx. Notes still issues with chest pressure, happens daily, throughout the day - with and without exertion. 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 Headache Herpes Kidney calculi Kidney stones Myopathy Past Surgical History Past Surgical History: Procedure Laterality Date CYSTOSCOPY LITHOTRIPSY Family History Family History Problem Relation Name Age of Onset Heart attack Mother Heart disease Mother Stroke Mother Other (triple bypass) Mother No Known Problems Sister No Known Problems Daughter No Known Problems Son Heart attack Maternal Grandmother No Known Problems Maternal Grandfather No Known Problems Paternal Grandmother No Known Problems Paternal Grandfather Social History Social History Tobacco Use Smoking status: Every Day Packs/day: 0.50 Types: Cigarettes Smokeless tobacco: Never Vaping Use Vaping Use: Never used Substance Use Topics Alcohol use: No Drug use: No Allergies: Allergies Allergen Reactions Meperidine Rash erythema, pruritus Morphine Itching and Rash erythema, pruritus Medications: Current Outpatient Medications: atomoxetine (Strattera) 25 MG capsule, Take 2 capsules (50 mg) by mouth daily. Swallow capsule whole; do not open. If opened accidentally, do not touch eyes; wash hands immediately (product is an eye irritant)., Disp: 60 capsule, Rfl: 3 busPIRone (Buspar) 5 MG tablet, Take 1 tablet (5 mg) by mouth 2 times daily., Disp: 60 tablet, Rfl: 11 valACYclovir (Valtrex) 500 MG tablet, Take 1 tablet by mouth once daily. INSTRUCTED. Strength: 500 mg, Disp: 90 tablet, Rfl: 3 Review of Systems: Review of Systems Constitutional: Positive for diaphoresis and fatigue. Negative for activity change, chills and fever. HENT: Negative for nosebleeds. Eyes: Negative for visual disturbance. Respiratory: Positive for chest tightness and shortness of breath (with palpitations). Negative for apnea, cough and wheezing. Cardiovascular: Positive for chest pain (chest discomfort with palpitations) and palpitations (daily; progressively worse). Negative for leg swelling. In bed to sleep; one pillow; states intermittent PND; no RF/ SF; no activity limits in youth; no murmur; no routine dental prophylaxis; has Raynaud's as well Gastrointestinal: Positive for nausea. Negative for abdominal distention, abdominal pain, blood in stool, diarrhea and vomiting. Endocrine: Negative for cold intolerance and heat intolerance. Genitourinary: Negative for hematuria. Musculoskeletal: Positive for arthralgias. Negative for gait problem and myalgias. Skin: Negative for color change and rash. Neurological: Positive for dizziness (with palpitations), syncope (feels presyncopal at times with palpitations; no syncopal episodes) and headaches (increased mingraine COV[place]; worse lately). Negative for weakness, light-headedness and numbness. Hematological: Bruises/bleeds easily. No blood tx; no DVT, no PE; no miscarriages Psychiatric/Behavioral: Positive for sleep disturbance (sleeps 6 hours; wakes her up at night). Negative for dysphoric mood. The patient is nervous/anxious. Physical Examination: Vitals: Vitals: 08/16/22 1141 BP: 114/80 BP Location: Right arm Patient Position: Sitting BP Cuff Size: Adult Pulse: 97 Resp: 16 Weight: 152 lb (68.9 kg) Height: 5' 8 (1.727 m) Body mass index is 23.11 kg/m . Physical Exam Vitals and nursing note reviewed. Constitutional: Appearance: Normal appearance. She is not diaphoretic. Eyes: General: Right eye: No discharge. Left eye: No discharge. Neck: Vascular: No carotid bruit. Cardiovascular: Rate and Rhythm: Normal rate and regular rhythm. Pulses: Normal pulses. Heart sounds: Normal heart sounds. No murmur heard. No friction rub. No gallop. Comments: 102/68 mm Hg Pulmonary: Effort: Pulmonary effort is normal. No respiratory distress. Breath sounds: Normal breath sounds. No stridor. No wheezing, rhonchi or rales. Musculoskeletal: Right lower leg: No edema. Left lower leg: No edema. Skin: Findings: No rash. Neurological: Mental Status: She is alert. Psychiatric: Mood and Affect: Mood normal. Behavior: Behavior normal. Cardiac Tests: ECG: Jun 2022; NSR; normal Last Echo: February 2008 in the [facility] system which revealed normal LV size and function, ejection fraction 60%, normal diastolic function; no valve disease. Last stress test: requested Last cardiac catheterization: NA Assessment and Plan: 1. PVC (premature ventricular contraction) 2. Anxiety 3. History of congestive heart failure 4. Shortness of breath 5. Palpitations 6. Chest pain, unspecified type Holter monitor for burden of ectopy Return in 6 weeks I will probably go with [place], but I need to evaluate first documented in this encounter [facility] Evaluation note Diagnosis Lumbar sprain, initial encounter- Primary documented in this encounter [facility] Work Phone: Evaluation note* Diagnosis PVC (premature ventricular contraction) Other premature beats Anxiety Anxiety state, unspecified History of congestive heart failure Personal history of other diseases of circulatory system Shortness of breath Palpitations Chest pain, unspecified type documented in this encounter [facility] Diagnosis Attention deficit hyperactivity disorder (ADHD), predominantly inattentive type- Primary Anxiety Anxiety state, unspecified Seasonal allergies Allergic rhinitis, cause unspecified documented in this encounter [facility]* Diagnosis Attention deficit hyperactivity disorder (ADHD), predominantly inattentive type- Primary Anxiety Anxiety state, unspecified Seasonal allergies Allergic rhinitis, cause unspecified documented in this encounter [facility]* Diagnosis History of congestive heart failure- Primary Personal history of other diseases of circulatory system Palpitations documented in this encounter [facility]* Diagnosis History of congestive heart failure- Primary Personal history of other diseases of circulatory system Attention deficit hyperactivity disorder (ADHD), predominantly inattentive type Anxiety Anxiety state, unspecified Palpitations documented in this encounter [facility]* Diagnosis HSV-1 (herpes simplex virus 1) infection Herpes simplex without mention of complication Seasonal allergies Allergic rhinitis, cause unspecified [facility] Diagnosis Dysuria- Primary [facility]* Diagnosis Kidney stone on right side- Primary [facility]* Diagnosis Kidney stone on right side- Primary documented in this encounter [facility] note* Diagnosis Lumbar spine pain- Primary [facility] this [facility]* Diagnosis Lumbar spine pain documented in this encounter [facility] note* Diagnosis Kidney stone on right side documented in this encounter [facility] note* Diagnosis Calculus, kidney Calculus of kidney documented [facility] this [facility]* Diagnosis Acute left-sided low back pain with left-sided sciatica- Primary documented in this encounter [facility] note* Diagnosis Lumbar spine pain documented in this encounter [facility] note* Diagnosis Left flank pain- Primary Abdominal pain, unspecified site Left lower quadrant abdominal pain documented in this encounter [facility] note* Diagnosis Tinea corporis- Primary Dermatophytosis of the body documented in this encounter [facility] note* Diagnosis Tinea corporis Dermatophytosis of the body documented in this encounter [facility] note* Diagnosis Pressure sensation in ear, unspecified laterality- Primary documented in this encounter [facility] note* Diagnosis Lumbar spine pain- Primary documented in this encounter [facility] of [facility] [id number] female who claims she has had 2 episodes of Covid and comes in with a 1 week history ofleft-sided facial pain with pressure, a tender and swollen left anterior cervical lymph node, headache, fatigue, and a productive cough. She has felt chilled. No loss of taste or smell. She is not Covid vaccinated. Review of systems is otherwise negative for constitutional, ear nose and throat, neck, heart, lungs, and abdomen.[facility] Work Phone: Hospital Discharge instructions* Attachments The following attachments cannot be sent through Care Everywhere. * Low Back Pain: Exercises (Polish) documented in this [facility] Work Phone: Hospital Discharge instructions* Attachments The following attachments cannot be sent through Care Everywhere. * Low Back Pain Discharge Instructions (Polish) [facility] (narrative)* Consultation (Routine) - Pending Review Specialty Diagnoses / Procedures Referred By Contsultana t Referred To Contact Urology Diagnoses Kidney stone on right side Procedures TX OFFICE/OUTPATIENT [facility] 60 MINUTES Deena Chavez MD [address] [facility] [address] [place] [address] Shon Hagan MD [address] [place] [address] Referral ID Status Reason Start Date Expiration Date Visits Requested Visits Authorized [id number] Pending Review Specialty Services Required 09/29/2023 09/28/2024 1 [facility] Consultation (Routine) - Pending Review Specialty Diagnoses / Procedures Referred By Christopher t Referred To Contact Otolaryngology Diagnoses Tinea corporis Procedures TX OFFICE/OUTPATIENT [facility] 60 MINUTES Deena Chavez MD [address] [place] [id number] Addy Mcginnis, DO [place]ep[address] [address] Referral ID Status Reason Start Date Expiration Date Visits Requested Visits Authorized [id number] Pending Review Specialty Services Required 01/04/2024 01/03/2025 1 1 [facility] (narrative)* Consultation (Routine) - Pending Review Specialty Diagnoses / Procedures Referred By Contsultana t Referred To Contact Otolaryngology Diagnoses Pressure sensation in ear, unspecified laterality Procedures TX OFFICE/OUTPATIENT [facility] 60 MINUTES Deena Chavez MD [facility] [address] [address] Cleve Duarte [address] [place] [id number] Referral ID Status Reason Start Date Expiration Date Visits Requested Visits Authorized [id number] Pending Review Specialty Services Required 01/05/2024 01/04/2025 1 1 [facility] Summary Purpose Family History No Family History Records FoundNo Family History Records FoundNo Family History Records FoundNo Family History Records FoundNo Family History Records FoundNo Family History Records FoundNo Family History Records Found Advance Directives Documents on File Type Date Recorded 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 Reason for Referral Status Reason Specialty Diagnoses / Procedures Referred By Contact Referred To Contact Open Specialty Services Required Orthopedic Surgery Diagnoses Closed fracture of phalanx of left fifth toe, initial encounter Dyana Polo MD [address] [place] [address] [facility] Molly Whiting [facility] [address] [facility] [place] [address] Scheduling Instructions [facility] Orthopedics - Yalemarbella Goyal [place], MD [id number] Specialty Diagnoses / Procedures Referred By Contac t Referred To Contact Physical Therapy Diagnoses Lumbar sprain, initial encounter Barrington Colon MD [address] [place] [address] [facility] [place] [address] Referral ID Status Reason Start Date Expiration Date V isits Requested Visits Authorized [id number] Open Specialty Services Required 08/11/2021 08/11/2022 1 1 Scheduling Instructions [facility] Physical Therapy - [address] [place] [address] Please fax orders to [phone] Call to schedule new appointment [phone] Specialty Diagnoses / Procedures Referred By Contac t Referred To Contact Cardiology Diagnoses History of congestive heart failure Palpitations Chest pain, unspecified type Procedures Cardiac holter monitor (24 hours) Isada, Ralph R, MD 1 [facility] [address] [place] [address] Referral ID Status Reason Start Date Expiration Date V isits Requested Visits Authorized [id number] Pending Review 08/16/2022 02/12/2023 1 1 Specialty Diagnoses / Procedures Referred By Contac t Referred To Contact Radiology Diagnoses Lumbar spine pain Procedures MR lumbar spine wo contrast Cecilia Cooper DO [address] [facility] [address] [place] [address] Referral ID Status Reason Start Date Expiration Date Visits Re quested Visits Authorized [id number] Closed 11/07/2023 11/06/2024 1 1 Specialty Diagnoses / Procedures Referred By Contac t Referred To Contact Physical Therapy Diagnoses Lumbar spine pain Procedures TX OFFICE/OUTPATIENT NEW HIGH MDM 60 MINUTES Deena Chavez MD [address] [place] [address] Referral ID Status Reason Start Date Expiration Date Visits Requested Visits Authorized [id number] Pending Review Eval and Treat 02/15/2024 08/13/2024 99 99 Discharge Instructions * Instructions* Dyana Polo MD - 10/23/2019 Ibuprofen 600 mg every 6-8 hours with food for pain keep fourth and fifth toes kiko taped and wear postoperative shoe when standing or ambulating return to Emergency Room immediately if worse in anyway call orthopedics today to be seen later this week for recheck. * Attachments The following attachments cannot be sent through Care Everywhere. * Toe Fracture (Polish) documented in this encounter Assessments Diagnosis Closed fracture of phalanx of left fifth toe, initial encounter Additional Source Comments INFORMATION SOURCE (unrecogn ized section and content) DATE CREATED AUTHOR 11/09/2017 [employer] DATE CREATED AUTHOR AUTHOR'S ORGANIZ ATION 12/29/2018 [facility] DATE CREATED AUTHOR AUTHOR'S ORGANIZ ATION 10/24/2019 [facility] DATE CREATED AUTHOR AUTHOR'S ORGANIZ ATION 03/03/2021 [employer] DATE CREATED AUTHOR AUTHOR'S ORGANIZ ATION 10/08/2023 [facility] DATE CREATED AUTHOR AUTHOR'S ORGANIZ ATION 10/23/2023 [facility] DATE CREATED AUTHOR AUTHOR'S ORGANIZ ATION 02/17/2024 [facility] Reason for Visit (unrecogniz ed section and content) Reason Comments Toe Pain Reason Comments Back Pain Reason Onset Date Comments Refill Request 12/30/2021 Reason Comments Follow-up 6 weeks Reason Comments Follow-up Discuss Labs Pt would like to dis cuss recent lab results Discuss Medications Pt said she is takin g Buspar and Strattera and she does not feel like the meds are helping , she would like to discuss other med options or increasing the medications Allergies Pt said she woke up last night and her eyes were itchy and she had a stuffy nose , ended up taking an OTC allergy pill which was helpful Reason Comments Follow-up No concerns Med Refill Reason Comments 3 Month Follow Up Reason Comments Med Refill Reason Comments 6 Month Follow-up Reason Comments UTI Cloudy , pressure , uncomfortable, x 2 days Reason Comments Results Medication Problem Reason Comments Results Reason Comments ER Follow-up (See nurse triage en counter dated today.) She is quite clammy, and she feels she got too dehydrated. Reason Onset Date Comments Flank Pain 09/30/2023 Reason Onset Date Comments Error (VOID this visit) 09/30/2023 Reason Onset Date Comments Appointment 09/29/2023 Reason Comments Patient Question Reason Onset Date Comments Back Pain 11/01/2023 Reason Comments Back Pain Lower back radiating crushing pressure pain 3-8/10 every time pt twist right or left. X3 wks. Getting worse tylenol not helping but ibuprofen relieves slightly. Reason Comments New Patient Nephrolithiasis Right groin and righ t upper abdomen Specialty Diagnoses / Procedures Referred By Contac t Referred To Contact Urology Diagnoses Kidney stone on right side Procedures TX OFFICE/OUTPATIENT NEW HIGH MDM 60 MINUTES Deena Chavez MD [address] [facility] [address] [place] [address] Shon Hagan MD [address] [place] [address] Referral ID Status Reason Start Date Expiration Date V isits Requested Visits Authorized [id number] Closed Specialty Services Required 09/29/2023 09/28/2024 1 1 Specialty Diagnoses / Procedures Referred By Christopher t Referred To Contact Radiology Diagnoses Lumbar spine pain Procedures MR lumbar spine wo contrast Yolie CoopertanyDO [address] [place] [address] Referral ID Status Reason Start Date Expiration Date Visits Re quested Visits Authorized [id number] Closed 11/07/2023 11/06/2024 1 1 Reason Onset Date Comments Med Refill 12/15/2023 Reason Comments Abdominal Pain Reason Onset Date Comments Referral 01/05/2024 ENT referral Reason Onset Date Comments Med Refill 01/17/2024 Reason Comments Med Change Request Ordered Prescriptions (unrec ognized section and content) Prescription Sig Dispensed Refills Start Date End Da te predniSONE (DELTASONE) 10 MG tablet Take 1 tablet by mouth daily for 5 days 5 tablet 0 08/11/2021 08/16/2021 lidocaine (LIDODERM) 5 % Place 1 patch onto the skin every [address] 1 patch onto the skin daily 12 hours on, 12 hours off. 14 patch 0 08/11/2021 Scheduled Active and Recently Administ ered Medications (unrecognized section and content) Medication Order 08/09/2021 08/10/2021 08/11/2021 acetaminophen (TYLENOL) tablet 1,000 mg 1,000 mg, Oral, ONCE, 1 dose, On 08/11/21 at 1444, Maximum dose of acetaminophen is 4000 mg from all sources in 24 hours. 1455 (Not Given - Pr ovider: Jyotsna Cramer RN - Reason: Patient/family refused) Scheduled Medication Order 11/29/2023 11/30/2023 12/01/2023 dexAMETHasone (PF) (Decadron) injection 4 mg (COMPLETED) 4 mg, IntraMUSCular, Once, On Cinthya 12/01/23 at 2205, For 1 dose 2206 (Given - Provid er: Marci Forbes RN) ketorolac (Toradol) injection 30 mg (COMPLETED) 30 mg, IntraMUSCular, Once, On Cinthya 12/01/23 at 2205, For 1 dose 2206 (Given - Provid er: Marci Forbes RN) Scheduled Medication Order 12/25/2023 12/26/2023 12/27/2023 ketorolac (Toradol) injection 15 mg (COMPLETED) 15 mg, IntraVENous, Once, On Tue12/27/23 at 0055, For 1 dose 0111 (Given - Provid er: Ilana Malone, RN) ondansetron (Zofran) injection 4 mg (COMPLETED) 4 mg, IntraVENous, Once, On Tue12/27/23 at 0055, For 1 dose 0113 (Given - Provid er: Ilana Malone, HORACE) Care Teams (unrecognized sec tion and content) [employer] Data [employer] Relationship Specialty Start Date End Date Deena Chavez MD [address] [place] [address] PCP - General Family Medicine 06/02/20 Sap Data Architect Relationship Specialty Start Date End Date Carmel Marroquin DO PCP - General 01/28/15 [employer] Data Architect Relationship Specialty Start Date End Date Deena Chavez MD [facility] [place] [address] PCP - General 06/02/20 Sap Data Architect Relationship Specialty Start Date End Date Deena Chavez MD [address] [place] [address] PCP - General 06/02/20 Sap Data Architect Relationship Specialty Start Date End Date Deena Chavez MD [address] [place] [address] PCP - General 06/02/20 Sap Data Architect Relationship Specialty Start Date End Date Deena Chavez MD [facility] [place] [address] PCP - General 06/02/20 Sap Data Architect Relationship Specialty Start Date End Date Deena Chavez MD [address] [place] [address] PCP - General 06/02/20 Sap Data Architect Relationship Specialty Start Date End Date Deena Chavez MD [address] [place] [address] PCP - General 06/02/20 Sap Data Architect Relationship Specialty Start Date End Date Deena Chavez MD [address] [place] [address] PCP - General 06/02/20 Sap Data Architect Relationship Specialty Start Date End Date Deena Chavez MD [address] [place] [address] [place] [address] PCP - General Family Medicine 09/20/23 Sap Data Architect Relationship Specialty Start Date End Date Deena Chavez MD [address] [place] [address] [place] [address] PCP - General Family Medicine 09/20/23 Sap Data Architect Relationship Specialty Start Date End Date Deena Chavez MD [address] [place] [address] [place] [address] PCP - General 06/02/20 Hua Valverde MD [address] [facility] [address] [place] [id number] Surgeon Urology 09/29/23 Sap Data Architect Relationship Specialty Start Date End Date Deena Chavez MD [address] [place] [address] PCP - General 06/02/20 Hua Valverde MD [address] [place] [address] Surgeon Urology 09/29/23 Sap Data Architect Relationship Specialty Start Date End Date Deena Chavez MD [facility] [place] [address] PCP - General 06/02/20 Hua Valverde MD [address] [place] [address] Surgeon Urology 09/29/23 Sap Data Architect Relationship Specialty Start Date End Date Deena Chavez MD [facility] [place] [address] PCP - General 06/02/20 Hua Valverde MD [address] [place] [address] Surgeon Urology 09/29/23 Sap Data Architect Relationship Specialty Start Date End Date Deena Chavez MD [facility] [place] [address] PCP - General 06/02/20 Hua Valverde MD [address] [place] [address] Surgeon Urology 09/29/23 Sap Data Architect Relationship Specialty Start Date End Date Deena Chavez MD [facility] [place] [address] PCP - General 06/02/20 Hua Valverde MD [address] [place] [address] Surgeon Urology 09/29/23 Shon Hagan MD [address] [place] [address] Surgeon Urology 11/23/23 Sap Data Architect Relationship Specialty Start Date End Date Deena Chavez MD [address] [place] [address] Road [address] [place], [place] [id number] PCP - General 06/02/20 Hua Valverde MD [address] [place] [address] Surgeon Urology 09/29/23 Shon Hagan MD [address] [place] [address] Surgeon Urology 11/23/23 Sap Data Architect Relationship Specialty Start Date End Date Deena Chavez MD [address] [place] [address] [place] [address] PCP - General 06/02/20 Hua Valverde MD [address] [place] [address] Surgeon Urology 09/29/23 Shon Hagan MD [address] [place] [address] Surgeon Urology 11/23/23 Sap Data Architect Relationship Specialty Start Date End Date Deena Chavez MD [address] [place] [address] [place] [id number] PCP - General 06/02/20 Hua Valverde MD [address] [place] [address] Surgeon Urology 09/29/23 Shon Hagan MD [address] [place] [address] Surgeon Urology 11/23/23 Sap Data Architect Relationship Specialty Start Date End Date Deena Chavez MD [address] [place] [address] Road [address] [place] [address] PCP - General 06/02/20 Hua Valverde MD [address] [place] [address] Surgeon Urology 09/29/23 Shon Hagan MD [address] [place] [address] Surgeon Urology 11/23/23 Sap Data Architect Relationship Specialty Start Date End Date Deena Chavez MD [address] [place] [address] Road [address] [place] [address] PCP - General 06/02/20 Hua Valverde MD [address] [place] [address] Surgeon Urology 09/29/23 Shon Hagan MD [address] [place] [address] Surgeon Urology 11/23/23 Sap Data Architect Relationship Specialty Start Date End Date Deena Chavez MD [facility] [place] [address] PCP - General 06/02/20 Hua Valverde MD [address] [place] [address] Surgeon Urology 09/29/23 Shon Hagna MD [address] [place] [address] Surgeon Urology 11/23/23 Sap Data Architect Relationship Specialty Start Date End Date Deena Chavez MD [facility] [place] [address] PCP - General 06/02/20 Hua Valverde MD [address] [place] [address] Surgeon Urology 09/29/23 Shon Hagan MD [address] [place] [address] Surgeon Urology 11/23/23 Sap Data Architect Relationship Specialty Start Date End Date Deena Chavez MD [facility] [place] [address] PCP - General 06/02/20 Hua Valverde MD [address] [place] [address] Surgeon Urology 09/29/23 Shon Hagan MD [address] [place] [address] Surgeon Urology 11/23/23 Sap Data Architect Relationship Specialty Start Date End Date Deena Chavez MD [address] [facility] [address] [place] [address] PCP - General 06/02/20 Hua Valverde MD [address] [place] [address] Surgeon Urology 09/29/23 Shon Hagan MD [address] [place] [address] Surgeon Urology 11/23/23 Source Comments (unrecognize d section and content) In the event this informatio n is protected by the Federal Confidentiality of Alcohol and Drug Abuse Patient Records regulations: The Federal rules restrict any use of the information to criminally investigate or prosecute any alcohol or drug abuse patient.[facility] Hospital[facility] the event this information is protected by the Federal Confidentiality of Alcohol and Drug Abuse Patient Records regulations: The Federal rules restrict any use of the information to criminally investigate or prosecute any alcohol or drug abuse patient.[facility] HospitalIn the event this information is protected by the Federal Confidentiality of Alcohol and Drug Abuse Patient Records regulations: The Federal rules restrict any use of the information to criminally investigate or prosecute any alcohol or drug abuse patient.[facility] HospitalIn the event this information is protected by the Federal Confidentiality of Alcohol and Drug Abuse Patient Records regulations: The Federal rules restrict any use of the information to criminally investigate or prosecute any alcohol or drug abuse patient.[facility] HospitalIn the event this information is protected by the Federal Confidentiality of Alcohol and Drug Abuse Patient Records regulations: The Federal rules restrict any use of the information to criminally investigate or prosecute any alcohol or drug abuse patient.[facility] FOR RECORDS PERTAINING TO PATIENTS WHO ARE OR HAVE BEEN ENROLLED IN A CHEMICAL DEPENDENCY/SUBSTANCEABUSE PROGRAM, SOME INFORMATION MAY BE OMITTED. This clinical summary was aggregated from multiple sources. Caution should be exercised in using it in the provision of clinical care. This summary normalizes information from multiple sources, and as a consequence, information in this document may materially change the coding, format and clinical context of patient data. In addition, data may be omitted in some cases. CLINICAL DECISIONS SHOULD BE BASED ON THE PRIMARY CLINICAL RECORDS. [facility] [employer] [facility]. provides no warranty or guarantee of the accuracy or completeness of information in this document.
[2024-03-07 22:30] VITALS: PULSE 57; RESP 13; O2SAT 97
[2024-03-07 23:35] LABS: D-Dimer Quantitative (DVT/PE) 0.31 FEU/ug/m (0.27-0.49)
[2024-03-08] VITALS: BP 100/69; PULSE 46; RESP 14; O2SAT 98
--- NOTE | 2024-03-08 00:05 | EKG12_ITS ---
Test Reason : DYSRHYTHMIA Blood Pressure : / mmHG Vent. Rate : 041 BPM Atrial Rate : 041 BPM P-R Int : 142 ms QRS Dur : 080 ms QT Int : 488 ms P-R-T Axes : 037 066 051 degrees QTc Int : 402 ms Marked sinus bradycardia Abnormal ECG Confirmed by GIORGI WORRELL, GRADY ([id number]), features editor SELMA KAUR ([id number]) on 03/08/2024 9:26:55 AM Referred By: Confirmed By:GRADY RAND MD
[2024-03-08 00:14] LABS: Anion Gap 8 (5-15); BUN 12 mg/dL (7-18); Calcium,Total 9.2 mg/dL (8.5-10.1); Chloride 108 mmol/L (98-107); Creatinine, Serum 0.86 mg/dL (0.55-1.02); EST Glomerular Filtration Rate 79 mL/min (>60); Est Glom Filt Rate - Afr Amer 96 mL/min (>60); Glucose 86 mg/dL (74-106); Potassium 3.9 mmol/L (3.5-5.1); Sodium Level 138 mmol/L (136-145); Troponin-I HS (w/2H Reflex) < 3 pg/mL (3.0-54.0)
[2024-03-08 00:33] LABS: Absolute Lymphocyte Count 3.88 X10^3/uL (0.83-4.51); Absolute Neutrophil Count 4.5 X10^3/uL (2.0-7.7); Basophil# 0.12 X10^3/uL; Basophil% 1.3 % (0-1); Eosinophil# 0.16 X10^3/uL; Eosinophils% 1.7 % (0-5); Hematocrit 37.7 % (37-47); Hemoglobin 12.4 g/dL (12.0-15.0); Lymphocyte # 3.88 X10^3/ul (0.83-4.51); Lymphocyte % 41.9 % (19-41); Mean Corp Hgb Conc 32.9 g/dL (32-36); Mean Corpuscular Hgb 30.3 pg (27.0-32.0); Mean Corpuscular Volume 92.2 fL (81-99); Mean Platelet Vol. 9.9 fl (6.2-12.0); Monocyte# 0.56 X10^3/uL; NRBC Flagged by Analyzer 0 % (0-5); Neutrophil # 4.53 X10^3/uL (2.7-7.7); Neutrophil % 48.9 % (47-70); Platelet Count 262 K/mm3 (150-450); RBC Distribution Width SD 43.8 fl (35.1-43.9); Red Blood Count 4.09 M/mm3 (4.2-5.4); White Blood Count 9.3 K/mm3 (4.4-11.0)
[2024-03-08 01:00] VITALS: BP 101/60; PULSE 49; RESP 20; O2SAT 98
[2024-03-08 01:16] LABS: Reflex Troponin-HS? (from REC) Y
[2024-03-08 01:40] LABS: Troponin-I HS < 3 pg/mL (3.0-54.0)
[2024-03-08 02:08] VITALS: BP 103/61; PULSE 51; RESP 18; O2SAT 98
== END 2024-03-08 02:10 | disposition home or self-care (01) ==
PROVIDERS: Emergency Provider Emergency Medicine; PCP Family Medicine; Visit Provider Emergency Medicine
DX: R07.9 Chest pain, unspecified (principal); M79.602 Pain in left arm; R00.2 Palpitations; F32.A Depression, unspecified; F17.210 Nicotine dependence, cigarettes, uncomplicated; Z79.899 Other long term (current) drug therapy
CPT/HCPCS: 71045; 80048; 84484; 85025; 85379; 93005; 99283; A4216